=== PATIENT | male | born 1950 ===

== ENCOUNTER 2017-09-07 09:04 | Inpatient (IN) | payer OTHER ==
--- NOTE | 2017-09-07 10:55 | ED PDOC ---
HPI: Male Pain Time Seen by Provider: 09/07/17 09:51 Chief Complaint (Nursing): Male Genitourinary Chief Complaint (Provider): Male genitourinary History Per: Patient History/Exam Limitations: no limitations Onset/Duration Of Symptoms: Days (x4) Current Symptoms Are (Timing): Still Present Associated Symptoms: Urinary Symptoms (dysuria and frequency). denies: Fever, Chills, Back Pain, Other (abdominal pain) Additional Complaint(s): Pierce Cruz is a 67 year old male, with a past medical history diabetes and CAD, who presents to the emergency department complaining of frequent urination and burning sensation onset for x4 days. He denies any testicular pain or swelling, back pain, abdominal pain, fever or chills. No further medical complaints. PMD: Pranay Feng Past Medical History Reviewed: Historical Data, Nursing Documentation, Vital Signs Vital Signs: Last Vital Signs Temp 97.5 F L 09/07/17 09:13 Pulse 95 H 09/07/17 09:13 Resp 21 09/07/17 09:13 BP 142/85 09/07/17 09:13 Pulse Ox 97 09/07/17 09:13 - Medical History PMH: CAD, Diabetes - Surgical History Surgical History: CABG, Coronary Stent (carotid) - Family History Family History: States: Unknown Family Hx - Home Medications Home Medications: Ambulatory Orders Medication Instructions Recorded Aspirin [Ecotrin] 81 mg PO DAILY 09/07/17 Atorvastatin [Lipitor] 40 mg PO HS 09/07/17 Clopidogrel [Plavix] 75 mg PO DAILY 09/07/17 Enalapril Maleate [Vasotec] 20 mg PO DAILY 09/07/17 Ginkgo Biloba [place] Extract [Ginkgo 1 cap PO DAILY 09/07/17 Biloba] Glimepiride [amaRYL] 4 mg PO BID 09/07/17 Metoprolol Tartrate [Lopressor] 25 mg PO Q12 09/07/17 SITagliptin [Januvia] 50 mg PO DAILY 09/07/17 - Allergies Allergies/Adverse Reactions: Allergies Allergy/AdvReac Type Severity Reaction Status Date / Time No Known Allergies Allergy Verified 09/07/17 09:31 Review of Systems ROS Statement: Except As Marked, All Systems Reviewed And Found Negative Constitutional: Negative for: Fever, Chills Gastrointestinal: Negative for: Abdominal Pain Genitourinary Male: Positive for: Dysuria, Frequency. Negative for: Scrotal Pain Musculoskeletal: Negative for: Back Pain Physical Exam - Reviewed Nursing Documentation Reviewed: Yes Vital Signs Reviewed: Yes - Physical Exam Appears: Positive for: Well, Non-toxic, No Acute Distress Head Exam: Positive for: ATRAUMATIC, NORMAL INSPECTION Skin: Positive for: Normal Color, Warm, Dry Eye Exam: Positive for: Normal appearance, EOMI, PERRL Neck: Positive for: Painless ROM, Supple Cardiovascular/Chest: Positive for: Regular Rate, Rhythm. Negative for: Murmur Respiratory: Positive for: Normal Breath Sounds (clear to auscultation). Negative for: Respiratory Distress Gastrointestinal/Abdominal: Positive for: Normal Exam, Soft. Negative for: Tenderness, Guarding, Rebound Back: Positive for: Normal Inspection. Negative for: L CVA Tenderness, R CVA Tenderness, Vertebral Tenderness Extremity: Positive for: Normal ROM (upper and lower extremities). Negative for : Tenderness, Deformity, Swelling Neurologic/Psych: Positive for: Alert, Oriented. Negative for: Motor/Sensory Deficits - Laboratory Results Result Diagrams: 09/08/17 05:30 09/08/17 05:30 - ECG O2 Sat by Pulse Oximetry: 97 (RA) Pulse Ox Interpretation: Normal Medical Decision Making Medical Decision Making: Initial Impression: Dysuria. Differential includes UTI Initial Plan: --Urine dipstick --Glucose, Blood, POC --Reevaluation 11:30 -Ordered blood work, IV fluids and urine because he was hyperglycemic. Scribe Attestation: Documented by Cali Laguerre, acting as a scribe for Peewee Vazquez MD Provider Scribe Attestation: All medical record entries made by the Scribe were at my direction and personally dictated by me. I have reviewed the chart and agree that the record accurately reflects my personal performance of the history, physical exam, medical decision making, and the department course for this patient. I have also personally directed, reviewed, and agree with the discharge instructions and disposition. Disposition - Clinical Impression Clinical Impression: Urinary tract infection, Uncontrolled diabetes mellitus - Patient ED Disposition Is Patient to be Admitted: Yes Discussed With : Remedios Villagomez Doctor Will See Patient In The: ED Counseled Patient/Family Regarding: Studies Performed, Diagnosis - Disposition Disposition Time: 12:40 Condition: FAIR - Pt Status Changed To: Hospital Disposition Of: Inpatient - Admit Certification Admit to Inpatient:: After my assessment, the patient will require hospitalization for at least two midnights. This is because of the severity of symptoms shown, intensity of services needed, and/or the medical risk in this patient being treated as an outpatient. - POA Present On Arrival: Poor Glycemic Control
[2017-09-07] MEDS ORDERED: Sodium Chloride 0.9% 1,000 ML IV STA (11:07)
[2017-09-07 11:37] LABS: BASO # 0.1 K/uL (0.0-0.2); BASO % 0.4 % (0.0-2.0); EOS % 0.2 % (0.0-4.0); HEMOGLOBIN 14.2 g/dL (12.0-18.0); LYMPH # 0.6 K/uL (1.0-4.3); LYMPH % 4.5 % (20.0-40.0); MEAN CELL VOLUME 86.9 fl (80.0-94.0); MEAN CORPUSCULAR HEMOGLOBIN 30.1 pg (27.0-31.0); MEAN CORPUSCULAR HGB CONC 34.6 g/dL (33.0-37.0); MEAN PLATELET VOLUME 8.8 fl (7.2-11.7); MONO # 1.3 K/uL (0.0-0.8); MONO % 9.6 % (0.0-10.0); NEUT % 85.3 % (50.0-75.0); NRBC % 0.1 % (0.0-0.0); PLATELET COUNT 181 K/uL (130-400); RBC 4.73 Mil/uL (4.40-5.90); RED CELL DISTRIBUTION WIDTH 13.4 % (11.5-14.5)
[2017-09-07 11:46] LABS: CALCIUM 9.3 mg/dL (8.4-10.2)
[2017-09-07] MEDS ORDERED: cefTRIAXone (Rocephin) 1 gm Inj ONE (12:35)
[2017-09-07 13:08] LABS: BANDS 1 % (0-2); BASOPHIL 1 % (0-2); LYMPHOCYTE 7 % (20-50); MONOCYTE 12 % (0-10); NEUTROPHIL 79 % (42-75); PLATELET ESTIMATE NORMAL (NORMAL); TOTAL CELLS COUNTED 100; TOXIC GRANULATION PRESENT
[2017-09-07] MEDS ORDERED: Glucagon Recombinant 1 mg Inj IM PRN (13:47)
[2017-09-07] MEDS ORDERED: Dextrose 50% SYRINGE Inj (50 ml) IV PRN (13:47)
--- NOTE | 2017-09-07 14:57 | CP.PCM.HP ---
History of Present Illness - History of Present Illness History of Present Illness: Pierce is 67 yo M patient with PMH of diabetes mellitus, HTN and CAD who presents to the emergency department complaining of frequent urination, burning sensation and incontinence onset for x4 days. Associated with subjective fever and chills. He denies any abdominal or testicular pain or swelling, no back pain , no nausea, vomiting, edema, dribbling, tenesmus, flow stream. No further medical complaints. PMD: Dr Pranay Feng. PMH: DM poor controlled, HTN, CAD s/p CABG Meds: Lipitor 40mg daily, Enalapril 20mg daily, Metoprolol 25 mg daily Plavix 75 mg daily, ASA 81 mg daily, Glimepiride 4 mg daily, Januvia 100 mg daily PSH: CABG x2, carotid stent NKDA. FMH: denies. SH: lives in a house with and 2 sons. Denies alcohol, tobacco or drugs. ED course: VS: T 97.5, P 95, BP 142/85, RR 21, sat 97% RA. PE: ABD: wnl, Resp clear to auscult. Labs: CBC-WBC 14.0, BMP wnl except BUN/Cr 32/1.8 Glu: 366, Mg 1.9, Phos 3.1 Meds: Ceftriaxone 1 g IV once, NS 0.9% IV Present on Admission - Present on Admission Any Indicators Present on Admission: No Review of Systems - Review of Systems All systems: reviewed and no additional remarkable complaints except (as per HPI ) Past Patient History - Past Social History Smoking Status: Never Smoked - CARDIAC Hx Cardiac Disorders: Yes - ENDOCRINE/METABOLIC Hx Endocrine Disorders: Yes Hx Diabetes Mellitus Type 2: Yes - PSYCHIATRIC Hx Substance Use: No - SURGICAL HISTORY Hx Coronary Artery Bypass Graft: Yes Hx Coronary Stent: Yes (carotid) Meds Allergies/Adverse Reactions: Allergies Allergy/AdvReac Type Severity Reaction Status Date / Time No Known Allergies Allergy Verified 09/07/17 09:31 Physical Exam - Constitutional Appears: Well, No Acute Distress - Head Exam Head Exam: NORMAL INSPECTION - Eye Exam Eye Exam: EOMI, PERRL - Respiratory Exam Respiratory Exam: Clear to Auscultation Bilateral, NORMAL BREATHING PATTERN. absent: Rales, Rhonchi, Wheezes - Cardiovascular Exam Cardiovascular Exam: REGULAR RHYTHM, +S1, +S2. absent: Tachycardia - GI/Abdominal Exam GI & Abdominal Exam: Normal Bowel Sounds, Soft. absent: Distended, Tenderness - Extremities Exam Extremities exam: Negative for: calf tenderness - Back Exam Back exam: NORMAL INSPECTION. absent: CVA tenderness (L), CVA tenderness (R) - Neurological Exam Neurological exam: Alert, CN II-XII Intact, Oriented x3 - Psychiatric Exam Psychiatric exam: Normal Mood - Skin Skin Exam: Dry, Intact, Warm Results - Vital Signs Recent Vital Signs: Last Vital Signs Temp 97.5 F L 09/07/17 09:13 Pulse 95 H 09/07/17 09:13 Resp 21 09/07/17 09:13 BP 142/85 09/07/17 09:13 Pulse Ox 97 09/07/17 11:44 - Labs Result Diagrams: 09/07/17 11:21 09/07/17 11:21 Labs: Laboratory Results - last 24 hr 09/07/17 09/07/17 09/07/17 10:21 11:21 11:21 WBC 14.0 H D RBC 4.73 Hgb 14.2 Hct 41.1 MCV 86.9 MCH 30.1 MCHC 34.6 RDW 13.4 Plt Count 181 MPV 8.8 Neut % (Auto) 85.3 H Lymph % (Auto) 4.5 L Moffat % (Auto) 9.6 Eos % (Auto) 0.2 Baso % (Auto) 0.4 Neut # (Auto) 12.0 H Lymph # (Auto) 0.6 L Moffat # (Auto) 1.3 H Eos # (Auto) 0.0 Baso # (Auto) 0.1 Neutrophils % (Manual) 79 H Band Neutrophils % 1 Lymphocytes % (Manual) 7 L Monocytes % (Manual) 12 H Basophils % (Manual) 1 Toxic Granulation Present Platelet Estimate Normal RBC Morphology Normal Sodium 132 Potassium 4.8 Chloride 95 L Carbon Dioxide 22 Anion Gap 20 BUN 32 H Creatinine 1.8 H Est GFR ( Amer) 46 Est GFR (Non-Af Amer) 38 POC Glucose (mg/dL) 366 H Random Glucose 334 H Calcium 9.3 09/07/17 12:25 WBC RBC Hgb Hct MCV MCH MCHC RDW Plt Count MPV Neut % (Auto) Lymph % (Auto) Moffat % (Auto) Eos % (Auto) Baso % (Auto) Neut # (Auto) Lymph # (Auto) Moffat # (Auto) Eos # (Auto) Baso # (Auto) Neutrophils % (Manual) Band Neutrophils % Lymphocytes % (Manual) Monocytes % (Manual) Basophils % (Manual) Toxic Granulation Platelet Estimate RBC Morphology Sodium Potassium Chloride Carbon Dioxide Anion Gap BUN Creatinine Est GFR ( Amer) Est GFR (Non-Af Amer) POC Glucose (mg/dL) 288 H Random Glucose Calcium Assessment & Plan - Assessment and Plan (Free Text) Assessment: 67 yo M Patient with PMH of DM, HTN and CAD-CABG admitted due to UTI. Plan: 1- UTI, complicated -admit to med/surg - associated comorbidities - frequency, urgency and dysuria - IV fluids - Start cipro 500 mg PO BID - f/u cbc, cmp in AM - f/u chlamydia/gonocc cultures, urine cx 2- DM, uncontrolled - Diabetic diet - c/w home meds Januvia - Insulin sliding scale as per protocol - accuchecks - f/u A1C in the AM 3- HTN, controlled - c/w home medications 4- CAD - c/w home medications 5- DVT prophylaxis - Heparin 5000 units SC Q12H
[2017-09-07] MEDS: Insulin Regular 100 units/ml SC SCH ×2 (17:21→22:05)
[2017-09-07] MEDS: Sodium Chloride 0.9% 1,000 ML IV SCH ×2 (17:30→22:16)
[2017-09-08] MEDS: Insulin Regular 100 units/ml SC SCH ×4 (06:55→22:38)
[2017-09-08 07:39] LABS: CALCIUM 8.6 mg/dL (8.4-10.2)
[2017-09-08 07:41] LABS: HEMOGLOBIN 13.4 g/dL (12.0-18.0); MEAN CELL VOLUME 88.9 fl (80.0-94.0); MEAN CORPUSCULAR HEMOGLOBIN 30.2 pg (27.0-31.0); RBC 4.44 Mil/uL (4.40-5.90); RED CELL DISTRIBUTION WIDTH 13.6 % (11.5-14.5); WHITE BLOOD COUNT 12.5 K/uL (4.8-10.8)
[2017-09-08] MEDS ORDERED: Enoxaparin 40 mg Syringe SC SCH (09:00)
[2017-09-08] MEDS: Sodium Chloride 0.9% 1,000 ML IV SCH ×4 (10:00→23:10)
[2017-09-08] MEDS: Ciprofloxacin 400mg/200ml D5W 400 MG/200 ML BAG IVPB SCH ×2 (11:30→22:00)
--- NOTE | 2017-09-08 14:15 | CP.PCM.PN ---
<Jason Ortiz - Last Filed: 09/08/17 15:01> Subjective - Date & Time of Evaluation Date of Evaluation: 09/08/17 Time of Evaluation: 07:15 - Subjective Subjective: Patient seen and evaluated this morning at bedside, reports feeling better, denies nausea, vomiting, chills, no abdominal or chest pain. Febrile during night, tylenol given. Tolertaing well PO. Objective - Vital Signs/Intake and Output Vital Signs (last 24 hours): Temp Pulse Resp BP Pulse Ox 98.3 F 72 19 111/69 93 L 09/08/17 08:01 09/08/17 08:01 09/08/17 08:01 09/08/17 08:01 09/08/17 08:01 - Medications Medications: Current Medications Acetaminophen (Tylenol 325mg Tab) 650 mg PO Q6 PRN PRN Reason: Fever >100.4 F Last Admin: 09/08/17 01:05 Dose: 650 mg Aspirin (Ecotrin) 81 mg PO DAILY [facility] Last Admin: 09/08/17 09:42 Dose: 81 mg Atorvastatin Calcium (Lipitor) 40 mg PO HS [facility] Last Admin: 09/07/17 22:15 Dose: 40 mg Clopidogrel Bisulfate (Plavix) 75 mg PO DAILY [facility] Last Admin: 09/08/17 09:42 Dose: 75 mg Dextrose (Dextrose 50% Inj) 0 ml IV STAT PRN; Protocol PRN Reason: Hypoglycemia Protocol Dextrose (Glutose 15) 0 gm PO ONCE PRN; Protocol PRN Reason: Hypoglycemia Protocol Enalapril Maleate (Vasotec) 20 mg PO DAILY [facility] Last Admin: 09/08/17 09:42 Dose: 20 mg Glucagon (Glucagen Diagnostic Kit) 0 mg IM STAT PRN; Protocol PRN Reason: Hypoglycemia Protocol Heparin Sodium (Porcine) (Heparin) 5,000 units SC Q12 [facility] PRN Reason: Protocol Last Admin: 09/08/17 09:42 Dose: 5,000 units Sodium Chloride (Sodium Chloride 0.9%) 1,000 mls @ 150 mls/hr IV .Q6H40M [facility] Last Admin: 09/08/17 11:34 Dose: 150 mls/hr Ciprofloxacin (Cipro 400mg/200ml Dsw) 400 mg in 200 mls @ 200 mls/hr IVPB Q12 [facility] PRN Reason: Protocol Last Admin: 09/08/17 11:30 Dose: 200 mls/hr Insulin Detemir (Levemir) 5 units SC HS [facility] Insulin Human Regular (Humulin R) 0 units SC ACHS [facility] PRN Reason: Protocol Last Admin: 09/08/17 13:05 Dose: 3 units Metoprolol Tartrate (Lopressor) 25 mg PO Q12 [facility] Last Admin: 09/08/17 09:42 Dose: 25 mg Sitagliptin Phosphate (Januvia) 50 mg PO DAILY [facility] Last Admin: 09/08/17 09:42 Dose: 50 mg - Labs Labs: 09/08/17 05:30 09/08/17 05:30 - Constitutional Appears: No Acute Distress - Head Exam Head Exam: NORMAL INSPECTION - Eye Exam Eye Exam: EOMI, PERRL - Respiratory Exam Respiratory Exam: Clear to Ausculation Bilateral, NORMAL BREATHING PATTERN. absent: Rales, Rhonchi, Wheezes - Cardiovascular Exam Cardiovascular Exam: REGULAR RHYTHM, +S1, +S2. absent: Tachycardia - GI/Abdominal Exam GI & Abdominal Exam: Soft, Normal Bowel Sounds. absent: Distended, Tenderness - Extremities Exam Extremities Exam: absent: Calf Tenderness - Back Exam Back Exam: CVA tenderness (L), CVA tenderness (R) - Neurological Exam Neurological Exam: Awake, CN II-XII Intact, Oriented x3 - Psychiatric Exam Psychiatric exam: Normal Mood Assessment and Plan - Assessment and Plan (Free Text) Assessment: 67 yo M Patient with PMH of DM, HTN and CAD-CABG admitted due to UTI. Plan: 1- UTI, complicated - associated comorbidities - frequency, urgency and dysuria - IV fluids - Start cipro 400 mg IV BID - tylenol PRN for fever. - WBC 12, cmp wnl - f/u chlamydia/gonocc cx - urine cx: gram negative gabriella - f/u postvoid 2- DM, uncontrolled - Diabetic diet - c/w home meds Januvia - Insulin sliding scale as per protocol - start Levemir 5 units HS - accuchecks - f/u A1C in the AM 3- HTN, controlled - c/w home medications 4- CAD - c/w home medications 5- DVT prophylaxis - Heparin 5000 units SC Q12H <Dennise Wu - Last Filed: 09/09/17 09:43> Objective - Vital Signs/Intake and Output Vital Signs (last 24 hours): Temp Pulse Resp BP Pulse Ox 98.3 F 80 19 108/70 97 09/09/17 06:00 09/09/17 08:28 09/09/17 00:31 09/09/17 08:28 09/09/17 00:31 - Medications Medications: Current Medications Acetaminophen (Tylenol 325mg Tab) 650 mg PO Q6 PRN PRN Reason: Fever >100.4 F Last Admin: 09/09/17 02:10 Dose: 650 mg Aspirin (Ecotrin) 81 mg PO DAILY [facility] Last Admin: 09/09/17 08:28 Dose: 81 mg Atorvastatin Calcium (Lipitor) 40 mg PO HS [facility] Last Admin: 09/08/17 22:41 Dose: 40 mg Clopidogrel Bisulfate (Plavix) 75 mg PO DAILY [facility] Last Admin: 09/09/17 08:28 Dose: 75 mg Dextrose (Dextrose 50% Inj) 0 ml IV STAT PRN; Protocol PRN Reason: Hypoglycemia Protocol Dextrose (Glutose 15) 0 gm PO ONCE PRN; Protocol PRN Reason: Hypoglycemia Protocol Enalapril Maleate (Vasotec) 20 mg PO DAILY [facility] Last Admin: 09/09/17 08:28 Dose: 20 mg Glucagon (Glucagen Diagnostic Kit) 0 mg IM STAT PRN; Protocol PRN Reason: Hypoglycemia Protocol Heparin Sodium (Porcine) (Heparin) 5,000 units SC Q12 [facility] PRN Reason: Protocol Last Admin: 09/09/17 08:27 Dose: 5,000 units Sodium Chloride (Sodium Chloride 0.9%) 1,000 mls @ 150 mls/hr IV .Q6H40M [facility] Last Admin: 09/08/17 23:10 Dose: 150 mls/hr Ciprofloxacin (Cipro 400mg/200ml Dsw) 400 mg in 200 mls @ 200 mls/hr IVPB Q12 [facility] PRN Reason: Protocol Last Admin: 09/09/17 08:31 Dose: 200 mls/hr Insulin Detemir (Levemir) 10 units SC [facility] Insulin Human Regular (Humulin R) 0 units SC ACHS [facility] PRN Reason: Protocol Last Admin: 09/09/17 07:02 Dose: 4 units Metoprolol Tartrate (Lopressor) 25 mg PO Q12 [facility] Last Admin: 09/09/17 08:28 Dose: 25 mg Sitagliptin Phosphate (Januvia) 50 mg PO DAILY [facility] Last Admin: 09/09/17 08:28 Dose: 50 mg - Labs Labs: 09/09/17 05:05 09/09/17 05:05 Attending/Attestation - Attestation I have personally seen and examined this patient.: Yes I have fully participated in the care of the patient.: Yes I have reviewed all pertinent clinical information, including history, physical exam and plan: Yes Notes (Text): 09/09/17 09:43 ATTENDING NOTE ATTESTATION. PATIENT SEEN AND EXAMINED. CASE DISCUSSED WITH RESIDENT. AGREE WITH FINDINGS AND PLAN.
[2017-09-08] MEDS ORDERED: Insulin Detemir 100 Units/ml Inj SC SCH (22:00)
[2017-09-09] MEDS: Insulin Regular 100 units/ml SC SCH ×4 (07:02→22:43)
[2017-09-09 07:38] LABS: BASO # 0.1 K/uL (0.0-0.2); BASO % 0.5 % (0.0-2.0); EOS # 0.2 K/uL (0.0-0.7); EOS % 1.8 % (0.0-4.0); HEMOGLOBIN 13.8 g/dL (12.0-18.0); LYMPH % 9.2 % (20.0-40.0); MEAN CELL VOLUME 88.7 fl (80.0-94.0); MEAN CORPUSCULAR HEMOGLOBIN 30.4 pg (27.0-31.0); MEAN CORPUSCULAR HGB CONC 34.3 g/dL (33.0-37.0); MONO # 1.4 K/uL (0.0-0.8); MONO % 12.8 % (0.0-10.0); NEUT # 8.3 K/uL (1.8-7.0); NEUT % 75.7 % (50.0-75.0); RBC 4.55 Mil/uL (4.40-5.90); RED CELL DISTRIBUTION WIDTH 13.7 % (11.5-14.5); WHITE BLOOD COUNT 10.9 K/uL (4.8-10.8)
[2017-09-09 07:48] LABS: ALB/GLOB RATIO 0.8 (1.0-2.1); ALBUMIN 3.3 g/dL (3.5-5.0); CALCIUM 8.8 mg/dL (8.4-10.2)
[2017-09-09] MEDS: Ciprofloxacin 400mg/200ml D5W 400 MG/200 ML BAG IVPB SCH ×2 (08:31→21:21)
[2017-09-09] MEDS ORDERED: Insulin Detemir 100 Units/ml Inj SC SCH (09:05)
[2017-09-09] MEDS: Sodium Chloride 0.9% 1,000 ML IV SCH ×3 (12:59→19:29)
--- NOTE | 2017-09-09 13:34 | CP.PCM.PN ---
<Jason Ortiz - Last Filed: 09/09/17 13:30> Subjective - Date & Time of Evaluation Date of Evaluation: 09/09/17 Time of Evaluation: 08:15 - Subjective Subjective: Patient seen and evaluated this morning at bedside, reports feeling better, denies nausea, vomiting, chills, no abdominal or chest pain. Febrile during night, tylenol given. Tolertaing well PO. No urinary symptoms at this moment. Objective - Vital Signs/Intake and Output Vital Signs (last 24 hours): Temp Pulse Resp BP Pulse Ox 97.5 F L 63 20 117/70 94 L 09/09/17 09:00 09/09/17 09:00 09/09/17 09:00 09/09/17 09:00 09/09/17 09:00 - Medications Medications: Current Medications Acetaminophen (Tylenol 325mg Tab) 650 mg PO Q6 PRN PRN Reason: Fever >100.4 F Last Admin: 09/09/17 02:10 Dose: 650 mg Aspirin (Ecotrin) 81 mg PO DAILY [facility] Last Admin: 09/09/17 08:28 Dose: 81 mg Atorvastatin Calcium (Lipitor) 40 mg PO HS [facility] Last Admin: 09/08/17 22:41 Dose: 40 mg Clopidogrel Bisulfate (Plavix) 75 mg PO DAILY [facility] Last Admin: 09/09/17 08:28 Dose: 75 mg Dextrose (Dextrose 50% Inj) 0 ml IV STAT PRN; Protocol PRN Reason: Hypoglycemia Protocol Dextrose (Glutose 15) 0 gm PO ONCE PRN; Protocol PRN Reason: Hypoglycemia Protocol Enalapril Maleate (Vasotec) 20 mg PO DAILY [facility] Last Admin: 09/09/17 08:28 Dose: 20 mg Glucagon (Glucagen Diagnostic Kit) 0 mg IM STAT PRN; Protocol PRN Reason: Hypoglycemia Protocol Heparin Sodium (Porcine) (Heparin) 5,000 units SC Q12 [facility] PRN Reason: Protocol Last Admin: 09/09/17 08:27 Dose: 5,000 units Sodium Chloride (Sodium Chloride 0.9%) 1,000 mls @ 150 mls/hr IV .Q6H40M [facility] Last Admin: 09/09/17 12:59 Dose: 150 mls/hr Ciprofloxacin (Cipro 400mg/200ml Dsw) 400 mg in 200 mls @ 200 mls/hr IVPB Q12 [facility] PRN Reason: Protocol Last Admin: 09/09/17 08:31 Dose: 200 mls/hr Insulin Detemir (Levemir) 10 units SC HS [facility] Insulin Human Regular (Humulin R) 0 units SC ACHS [facility] PRN Reason: Protocol Last Admin: 09/09/17 13:00 Dose: 3 units Metoprolol Tartrate (Lopressor) 25 mg PO Q12 [facility] Last Admin: 09/09/17 08:28 Dose: 25 mg Sitagliptin Phosphate (Januvia) 50 mg PO DAILY [facility] Last Admin: 09/09/17 08:28 Dose: 50 mg - Labs Labs: 09/09/17 05:05 09/09/17 05:05 - Constitutional Appears: No Acute Distress - Head Exam Head Exam: NORMAL INSPECTION - Respiratory Exam Respiratory Exam: Clear to Ausculation Bilateral, NORMAL BREATHING PATTERN. absent: Wheezes - Cardiovascular Exam Cardiovascular Exam: REGULAR RHYTHM, +S1, +S2. absent: Tachycardia - GI/Abdominal Exam GI & Abdominal Exam: Soft, Normal Bowel Sounds. absent: Distended, Tenderness - Back Exam Back Exam: absent: CVA tenderness (L), CVA tenderness (R) - Neurological Exam Neurological Exam: Awake, Oriented x3 - Skin Skin Exam: Dry, Warm Assessment and Plan - Assessment and Plan (Free Text) Assessment: 67 yo M Patient with PMH of DM, HTN and CAD-CABG admitted due to UTI. Plan: 1- UTI, complicated - associated comorbidities - still febrile during night - IV fluids - c/w cipro 400 mg IV BID - tylenol PRN for fever. - WBC 10.9 from 13.0 yesterday - f/u chlamydia/gonocc cx still pending - urine cx final: klebsiella - Postvoid: 123cc 2- DM, uncontrolled - Diabetic diet - c/w home meds Januvia - Insulin sliding scale as per protocol - POC 320 today - increase Levemir to 10 units HS - accuchecks - f/u A1C in the AM 3- HTN, controlled - c/w home medications 4- CAD - c/w home medications 5- DVT prophylaxis - Heparin 5000 units SC Q12H <Dennise Wu - Last Filed: 09/10/17 08:40> Objective - Vital Signs/Intake and Output Vital Signs (last 24 hours): Temp Pulse Resp BP Pulse Ox 99.5 F 70 20 172/92 H 95 09/10/17 00:49 09/10/17 08:29 09/10/17 00:49 09/10/17 08:29 09/10/17 00:49 - Medications Medications: Current Medications Acetaminophen (Tylenol 325mg Tab) 650 mg PO Q6 PRN PRN Reason: Fever >100.4 F Last Admin: 09/09/17 02:10 Dose: 650 mg Aspirin (Ecotrin) 81 mg PO DAILY [facility] Last Admin: 09/10/17 08:30 Dose: 81 mg Atorvastatin Calcium (Lipitor) 40 mg PO HS [facility] Last Admin: 09/09/17 21:24 Dose: 40 mg Clopidogrel Bisulfate (Plavix) 75 mg PO DAILY [facility] Last Admin: 09/10/17 08:30 Dose: 75 mg Dextrose (Dextrose 50% Inj) 0 ml IV STAT PRN; Protocol PRN Reason: Hypoglycemia Protocol Dextrose (Glutose 15) 0 gm PO ONCE PRN; Protocol PRN Reason: Hypoglycemia Protocol Enalapril Maleate (Vasotec) 20 mg PO DAILY [facility] Last Admin: 09/10/17 08:30 Dose: 20 mg Glucagon (Glucagen Diagnostic Kit) 0 mg IM STAT PRN; Protocol PRN Reason: Hypoglycemia Protocol Heparin Sodium (Porcine) (Heparin) 5,000 units SC Q12 [facility] PRN Reason: Protocol Last Admin: 09/10/17 08:30 Dose: 5,000 units Sodium Chloride (Sodium Chloride 0.9%) 1,000 mls @ 150 mls/hr IV .Q6H40M [facility] Last Admin: 09/10/17 02:00 Dose: 150 mls/hr Ciprofloxacin (Cipro 400mg/200ml Dsw) 400 mg in 200 mls @ 200 mls/hr IVPB Q12 [facility] PRN Reason: Protocol Last Admin: 09/10/17 08:31 Dose: 200 mls/hr Insulin Detemir (Levemir) 10 units SC HS [facility] Last Admin: 09/09/17 22:45 Dose: 10 units Insulin Human Regular (Humulin R) 0 units SC ACHS [facility] PRN Reason: Protocol Last Admin: 09/10/17 07:10 Dose: 3 units Metoprolol Tartrate (Lopressor) 25 mg PO Q12 [facility] Last Admin: 09/10/17 08:29 Dose: 25 mg Sitagliptin Phosphate (Januvia) 50 mg PO DAILY [facility] Last Admin: 09/10/17 08:30 Dose: 50 mg - Labs Labs: 09/10/17 06:20 09/10/17 06:20 Attending/Attestation - Attestation I have personally seen and examined this patient.: Yes I have fully participated in the care of the patient.: Yes I have reviewed all pertinent clinical information, including history, physical exam and plan: Yes Notes (Text): 09/10/17 08:39 ATTENDING NOTE ATTESTATION. PATIENT SEEN AND EXAMINED. CASE DISCUSSED WITH RESIDENT. AGREE WITH FINDINGS AND PLAN
[2017-09-09 21:19] LABS: URINE AMORPHOUS SEDIMENT RARE /ul (<OCC); URINE BACTERIA MANY (<OCC); URINE BILIRUBIN NEGATIVE (NEGATIVE); URINE BLOOD MODERATE (NEGATIVE); URINE CLARITY CLOUDY (Clear); URINE COLOR YELLOW (YELLOW); URINE GLUCOSE (UA) >=500 mg/dL (Normal); URINE LEUKOCYTE ESTERASE LARGE Leu/uL (Negative); URINE PROTEIN NEGATIVE (NEGATIVE); URINE UROBILINOGEN 0.2-1.0 mg/dL (0.2-1.0); WBC CLUMPS FEW /hpf
[2017-09-10] MEDS: Sodium Chloride 0.9% 1,000 ML IV SCH ×5 (02:00→21:36)
[2017-09-10] MEDS: Insulin Regular 100 units/ml SC SCH ×4 (07:10→21:30)
[2017-09-10 07:56] LABS: BASO % 0.4 % (0.0-2.0); EOS # 0.3 K/uL (0.0-0.7); EOS % 2.7 % (0.0-4.0); HEMOGLOBIN 13.6 g/dL (12.0-18.0); LYMPH # 1.2 K/uL (1.0-4.3); LYMPH % 11.6 % (20.0-40.0); MEAN CELL VOLUME 88.1 fl (80.0-94.0); MEAN CORPUSCULAR HEMOGLOBIN 30.7 pg (27.0-31.0); MEAN CORPUSCULAR HGB CONC 34.8 g/dL (33.0-37.0); MEAN PLATELET VOLUME 8.7 fl (7.2-11.7); MONO # 1.1 K/uL (0.0-0.8); MONO % 10.6 % (0.0-10.0); NEUT # 7.8 K/uL (1.8-7.0); NEUT % 74.7 % (50.0-75.0); NRBC % 0.1 % (0.0-0.0); RBC 4.44 Mil/uL (4.40-5.90); RED CELL DISTRIBUTION WIDTH 13.6 % (11.5-14.5); WHITE BLOOD COUNT 10.5 K/uL (4.8-10.8)
[2017-09-10 08:17] LABS: ALB/GLOB RATIO 0.8 (1.0-2.1); ALBUMIN 3.2 g/dL (3.5-5.0); ALT/SGPT 70 U/L (21-72); AST/SGOT 52 U/L (17-59); BLOOD UREA NITROGEN 20 mg/dl (9-20); GFR AFRICAN-AMERICAN > 60; GFR NON-AFRICAN AMERICAN 55
[2017-09-10] MEDS: Ciprofloxacin 400mg/200ml D5W 400 MG/200 ML BAG IVPB SCH (08:31)
[2017-09-10] MEDS: Insulin Detemir 100 Units/ml Inj SC SCH ×2 (11:45→21:29)
--- NOTE | 2017-09-10 13:28 | CP.PCM.PN ---
<Remedios Villagomez - Last Filed: 09/10/17 13:20> Subjective - Date & Time of Evaluation Date of Evaluation: 09/10/17 Time of Evaluation: 13:20 - Subjective Subjective: no overnight events. feeling well. Tolerating PO. Denies n/v, suprapubic pain, CVAT, hematuria. dysuria improved. Objective - Vital Signs/Intake and Output Vital Signs (last 24 hours): Temp Pulse Resp BP Pulse Ox 98.1 F 66 20 172/92 H 95 09/10/17 08:51 09/10/17 08:51 09/10/17 08:51 09/10/17 08:51 09/10/17 08:51 - Medications Medications: Current Medications Acetaminophen (Tylenol 325mg Tab) 650 mg PO Q6 PRN PRN Reason: Fever >100.4 F Last Admin: 09/09/17 02:10 Dose: 650 mg Aspirin (Ecotrin) 81 mg PO DAILY [facility] Last Admin: 09/10/17 08:30 Dose: 81 mg Atorvastatin Calcium (Lipitor) 40 mg PO HS [facility] Last Admin: 09/09/17 21:24 Dose: 40 mg Clopidogrel Bisulfate (Plavix) 75 mg PO DAILY [facility] Last Admin: 09/10/17 08:30 Dose: 75 mg Dextrose (Dextrose 50% Inj) 0 ml IV STAT PRN; Protocol PRN Reason: Hypoglycemia Protocol Dextrose (Glutose 15) 0 gm PO ONCE PRN; Protocol PRN Reason: Hypoglycemia Protocol Enalapril Maleate (Vasotec) 20 mg PO DAILY [facility] Last Admin: 09/10/17 08:30 Dose: 20 mg Glucagon (Glucagen Diagnostic Kit) 0 mg IM STAT PRN; Protocol PRN Reason: Hypoglycemia Protocol Heparin Sodium (Porcine) (Heparin) 5,000 units SC Q12 [facility] PRN Reason: Protocol Last Admin: 09/10/17 08:30 Dose: 5,000 units Sodium Chloride (Sodium Chloride 0.9%) 1,000 mls @ 150 mls/hr IV .Q6H40M [facility] Last Admin: 09/10/17 11:46 Dose: Not Given Ciprofloxacin (Cipro 400mg/200ml Dsw) 400 mg in 200 mls @ 200 mls/hr IVPB Q12 [facility] PRN Reason: Protocol Last Admin: 09/10/17 08:31 Dose: 200 mls/hr Insulin Detemir (Levemir) 12 units SC HS [facility] Last Admin: 09/10/17 11:45 Dose: 12 units Insulin Human Regular (Humulin R) 0 units SC [facility] PRN Reason: Protocol Last Admin: 09/10/17 11:44 Dose: 3 units Metoprolol Tartrate (Lopressor) 25 mg PO Q12 [facility] Last Admin: 09/10/17 08:29 Dose: 25 mg Sitagliptin Phosphate (Januvia) 50 mg PO DAILY [facility] Last Admin: 09/10/17 08:30 Dose: 50 mg - Labs Labs: 09/10/17 06:20 09/10/17 06:20 - Constitutional Appears: Well, No Acute Distress - Head Exam Head Exam: ATRAUMATIC, NORMAL INSPECTION - Eye Exam Eye Exam: Normal appearance - ENT Exam ENT Exam: Mucous Membranes Moist - Neck Exam Neck Exam: Full ROM, Normal Inspection - Respiratory Exam Respiratory Exam: Clear to Ausculation Bilateral, NORMAL BREATHING PATTERN - Cardiovascular Exam Cardiovascular Exam: REGULAR RHYTHM - GI/Abdominal Exam GI & Abdominal Exam: Soft - Extremities Exam Extremities Exam: Normal Inspection - Neurological Exam Neurological Exam: Alert, Oriented x3 - Skin Skin Exam: Dry, Warm Assessment and Plan - Assessment and Plan (Free Text) Assessment: Assessment: 67yo M with PMHx DM, HTN and CAD admitted for UTI. Plan: Cipro converted to PO from IV today with urine cx sensitive to cipro, afebrile thus far, will continue to optimize insulin today/overnight DM, uncontrolled - Diabetic diet - c/w home meds Januvia - Insulin sliding scale as per protocol - Levemir to 12 units HS - accuchecks pyelonephritis - cipro PO starting today - urine cx final: klebsiella -improved 3- HTN, controlled - c/w home medications 4- CAD - c/w home medications 5- DVT prophylaxis - Heparin 5000 units SC Q12H Dispo: d/c Mon with insulin <Dennise Wu - Last Filed: 09/11/17 06:54> Objective - Vital Signs/Intake and Output Vital Signs (last 24 hours): Temp Pulse Resp BP Pulse Ox 99.0 F 64 19 129/78 97 09/11/17 00:00 09/11/17 00:00 09/11/17 00:00 09/11/17 00:00 09/11/17 00:00 - Medications Medications: Current Medications Acetaminophen (Tylenol 325mg Tab) 650 mg PO Q6 PRN PRN Reason: Fever >100.4 F Last Admin: 09/09/17 02:10 Dose: 650 mg Aspirin (Ecotrin) 81 mg PO DAILY [facility] Last Admin: 09/10/17 08:30 Dose: 81 mg Atorvastatin Calcium (Lipitor) 40 mg PO HS [facility] Last Admin: 09/10/17 21:26 Dose: 40 mg Ciprofloxacin (Cipro) 500 mg PO Q12 [facility] PRN Reason: Protocol Last Admin: 09/10/17 21:27 Dose: 500 mg Clopidogrel Bisulfate (Plavix) 75 mg PO DAILY [facility] Last Admin: 09/10/17 08:30 Dose: 75 mg Dextrose (Dextrose 50% Inj) 0 ml IV STAT PRN; Protocol PRN Reason: Hypoglycemia Protocol Dextrose (Glutose 15) 0 gm PO ONCE PRN; Protocol PRN Reason: Hypoglycemia Protocol Enalapril Maleate (Vasotec) 20 mg PO DAILY [facility] Last Admin: 09/10/17 08:30 Dose: 20 mg Glucagon (Glucagen Diagnostic Kit) 0 mg IM STAT PRN; Protocol PRN Reason: Hypoglycemia Protocol Heparin Sodium (Porcine) (Heparin) 5,000 units SC Q12 [facility] PRN Reason: Protocol Last Admin: 09/10/17 21:27 Dose: 5,000 units Sodium Chloride (Sodium Chloride 0.9%) 1,000 mls @ 150 mls/hr IV .Q6H40M [facility] Last Admin: 09/10/17 21:36 Dose: 150 mls/hr Insulin Detemir (Levemir) 12 units SC HS [facility] Last Admin: 09/10/17 21:29 Dose: 12 units Insulin Human Regular (Humulin R) 0 units SC ACHS [facility] PRN Reason: Protocol Last Admin: 09/10/17 21:30 Dose: Not Given Metoprolol Tartrate (Lopressor) 25 mg PO Q12 [facility] Last Admin: 09/10/17 21:26 Dose: 25 mg Sitagliptin Phosphate (Januvia) 50 mg PO DAILY [facility] Last Admin: 09/10/17 08:30 Dose: 50 mg - Labs Labs: 09/10/17 06:20 09/10/17 06:20 Attending/Attestation - Attestation I have personally seen and examined this patient.: Yes I have fully participated in the care of the patient.: Yes I have reviewed all pertinent clinical information, including history, physical exam and plan: Yes Notes (Text): 09/11/17 06:53 ATTENDING NOTE ATTESTATION. PATIENT SEEN AND EXAMINED. CASE DISCUSSED WITH Ana RESENDIZ. UTI IMPROVING. STILL POORLY CONTROLLED DIABETES. ADJUSTMENT OF INSULIN ORDERED. AGREE WITH FINDINGS AND PLAN.
[2017-09-10 15:42] VITALS: O2SAT 97
[2017-09-11 00:50] VITALS: RESP 19
[2017-09-11 07:25] LABS: BLOOD UREA NITROGEN 20 mg/dl (9-20); GFR AFRICAN-AMERICAN > 60; GFR NON-AFRICAN AMERICAN 55
[2017-09-11 07:39] LABS: HEMOGLOBIN 13.1 g/dL (12.0-18.0); MEAN CELL VOLUME 88.3 fl (80.0-94.0); MEAN CORPUSCULAR HEMOGLOBIN 30.4 pg (27.0-31.0); MEAN CORPUSCULAR HGB CONC 34.5 g/dL (33.0-37.0); RBC 4.31 Mil/uL (4.40-5.90); RED CELL DISTRIBUTION WIDTH 13.6 % (11.5-14.5); WHITE BLOOD COUNT 8.4 K/uL (4.8-10.8)
[2017-09-11 08:04] VITALS: BP 131/72; PULSE 60; TEMP 98
[2017-09-11] MEDS: Insulin Regular 100 units/ml SC SCH ×2 (10:01→12:10)
--- NOTE | 2017-09-11 12:03 | CP.PCM.DIS ---
Provider - Provider Date of Admission: 09/07/17 12:40 Attending physician: Stefanie Us MD Time Spent in preparation of Discharge (in minutes): 30 Diagnosis - Discharge Diagnosis (1) Urinary tract infection Status: Acute (2) Uncontrolled diabetes mellitus Status: Chronic Hospital Course - Lab Results Lab Results: Micro Results 09/08/17 01:25 Blood Blood Culture - Preliminary NO GROWTH AFTER 3 DAYS 09/07/17 11:30 Urine Urine Culture - Final Klebsiella Pneumoniae Ssp Pneu Most Recent Lab Values WBC 8.4 K/uL (4.8-10.8) 09/11/17 05:30 RBC 4.31 Mil/uL (4.40-5.90) L 09/11/17 05:30 Hgb 13.1 g/dL (12.0-18.0) 09/11/17 05:30 Hct 38.0 % (35.0-51.0) 09/11/17 05:30 MCV 88.3 fl (80.0-94.0) 09/11/17 05:30 MCH 30.4 pg (27.0-31.0) 09/11/17 05:30 MCHC 34.5 g/dL (33.0-37.0) 09/11/17 05:30 RDW 13.6 % (11.5-14.5) 09/11/17 05:30 Plt Count 226 K/uL (130-400) 09/11/17 05:30 MPV 8.7 fl (7.2-11.7) 09/10/17 06:20 Neut % (Auto) 74.7 % (50.0-75.0) 09/10/17 06:20 Lymph % (Auto) 11.6 % (20.0-40.0) L 09/10/17 06:20 [place] % (Auto) 10.6 % (0.0-10.0) H 09/10/17 06:20 Eos % (Auto) 2.7 % (0.0-4.0) 09/10/17 06:20 Baso % (Auto) 0.4 % (0.0-2.0) 09/10/17 06:20 Neut # (Auto) 7.8 K/uL (1.8-7.0) H 09/10/17 06:20 Lymph # (Auto) 1.2 K/uL (1.0-4.3) 09/10/17 06:20 [place] # (Auto) 1.1 K/uL (0.0-0.8) H 09/10/17 06:20 Eos # (Auto) 0.3 K/uL (0.0-0.7) 09/10/17 06:20 Baso # (Auto) 0.0 K/uL (0.0-0.2) 09/10/17 06:20 Neutrophils % (Manual) 79 % (42-75) H 09/07/17 11:21 Band Neutrophils % 1 % (0-2) 09/07/17 11:21 Lymphocytes % (Manual) 7 % (20-50) L 09/07/17 11:21 Monocytes % (Manual) 12 % (0-10) H 09/07/17 11:21 Basophils % (Manual) 1 % (0-2) 09/07/17 11:21 Toxic Granulation Present 09/07/17 11:21 Platelet Estimate Normal (NORMAL) 09/07/17 11:21 RBC Morphology Normal (NORMAL) 09/07/17 11:21 Sodium 139 mmol/l (132-148) 09/11/17 05:30 Potassium 3.9 MMOL/L (3.6-5.0) 09/11/17 05:30 Chloride 102 mmol/L (98-107) 09/11/17 05:30 Carbon Dioxide 23 mmol/L (22-30) 09/11/17 05:30 Anion Gap 18 (10-20) 09/11/17 05:30 BUN 20 mg/dl (9-20) 09/11/17 05:30 Creatinine 1.3 mg/dl (0.8-1.5) 09/11/17 05:30 Est GFR ( Amer) > 60 09/11/17 05:30 Est GFR (Non-Af Amer) 55 09/11/17 05:30 POC Glucose (mg/dL) 293 mg/dL (65-110) H 09/11/17 10:51 Random Glucose 242 mg/dL (75-110) H 09/11/17 05:30 Calcium 9.0 mg/dL (8.4-10.2) 09/11/17 05:30 Phosphorus 3.1 mg/dl (2.5-4.5) 09/07/17 14:15 Magnesium 1.9 MG/DL (1.6-2.3) 09/07/17 14:15 Total Bilirubin 0.5 mg/dl (0.2-1.3) 09/10/17 06:20 AST 52 U/L (17-59) 09/10/17 06:20 ALT 70 U/L (21-72) 09/10/17 06:20 Alkaline Phosphatase 84 U/L (38-126) 09/10/17 06:20 Total Protein 7.1 G/DL (6.3-8.2) 09/10/17 06:20 Albumin 3.2 g/dL (3.5-5.0) L 09/10/17 06:20 Globulin 3.9 gm/dL (2.2-3.9) 09/10/17 06:20 Albumin/Globulin Ratio 0.8 (1.0-2.1) L 09/10/17 06:20 Procalcitonin 0.82 NG/ML (0.19-0.49) H 09/08/17 07:50 Urine Color Yellow (YELLOW) 09/09/17 20:40 Urine Clarity Cloudy (Clear) 09/09/17 20:40 Urine pH 6.0 (5.0-8.0) 09/09/17 20:40 Ur Specific [place] 1.012 (1.003-1.030) 09/09/17 20:40 Urine Protein Negative mg/dL (NEGATIVE) 09/09/17 20:40 Urine Glucose (UA) >=500 mg/dL (Normal) 09/09/17 20:40 Urine Ketones Negative mg/dL (NEGATIVE) 09/09/17 20:40 Urine Blood Moderate (NEGATIVE) 09/09/17 20:40 Urine Nitrate Negative (NEGATIVE) 09/09/17 20:40 Urine Bilirubin Negative (NEGATIVE) 09/09/17 20:40 Urine Urobilinogen 0.2-1.0 mg/dL (0.2-1.0) 09/09/17 20:40 Ur Leukocyte Esterase Large Leonor/uL (Negative) 09/09/17 20:40 Urine RBC (Auto) 14 /hpf (0-3) H 09/09/17 20:40 Urine WBC Clumps (Auto) Few /hpf (NONE) H 09/09/17 20:40 Urine Microscopic WBC 184 /hpf (0-5) H 09/09/17 20:40 Amorphous Sediment Rare /ul (<OCC) H 09/09/17 20:40 Urine Bacteria Many (<OCC) H 09/09/17 20:40 - Hospital Course Hospital Course: Pierce is 67 yo M patient with PMH of diabetes mellitus, HTN and CAD admitted due to uncontrolled diabetes and UTI. Patient febrile during 2 first nights of admission. He received treatment with Ciprofloxacin 400 mg IV BID and switch to PO day before discharge. Urine cx positive for klebsiella, BCX negative. Also during admission patient had high blood sugar levels, was started on Levemir 5 units HS, increased to 10 and then to 12 units. Patient afebrile and asymptomatic at discharge time, discharged home safely on Cipro 500 mg PO bid to complete 14 days and Levemir 15 units HS. Patient has f/u appt with PMD on at 3:00 pm. Discharge Exam - Head Exam Head Exam: NORMAL INSPECTION - Eye Exam Eye Exam: EOMI, PERRL - Respiratory Exam Respiratory Exam: Clear to PA & Lateral, NORMAL BREATHING PATTERN. absent: Rhonchi, Wheezes - Cardiovascular Exam Cardiovascular Exam: REGULAR RHYTHM, +S1, +S2. absent: Tachycardia, Systolic Murmur - GI/Abdominal Exam GI & Abdominal Exam: Normal Bowel Sounds, Soft. absent: Distended, Tenderness - Back Exam Back exam: absent: CVA tenderness (L), CVA tenderness (R) - Neurological Exam Neurological exam: Alert, CN II-XII Intact, Oriented x3 - Psychiatric Exam Psychiatric exam: Normal Mood - Skin Skin Exam: Dry, Warm Discharge Plan - Discharge Medications Prescriptions: Ciprofloxacin [Cipro] 500 mg PO Q12 10 Days #20 tab Insulin Detemir [Levemir] 15 units SC HS 30 Days #1 vial - Follow Up Plan Condition: FAIR Disposition: HOME/ ROUTINE Instructions: Urinary Tract Infection, Adult (DC), Diabetes and Infections Additional Instructions: F/U appt with PMD Dr Shell on 09/15/17 at 3 pm at [facility]. Continue with Ciprofloxacin 500mg PO BID for 10 days to complete 14 days. Referrals: [facility] [place] [Outside] Pranay Feng MD [Staff Provider] -
[2017-09-11 17:49] LABS: BETA-HYDROXYBUTYRIC ACID 63 mcg/mL
== END 2017-09-11 13:32 | disposition home or self-care (01) | DRG 690 ==
LOC: H.ER 09:04 → H.ERHOLD 12:40 → H.MEDSURG1 15:29
PROVIDERS: ADMIT Family Medicine Geriatric Medicine; ATTEND Family Medicine Geriatric Medicine
DX: N39.0 Urinary tract infection, site not specified (principal); E11.65 Type 2 diabetes mellitus with hyperglycemia; I25.10 Atherosclerotic heart disease of native coronary artery without angina pectoris; Z95.1 Presence of aortocoronary bypass graft; I10 Essential (primary) hypertension; Z95.5 Presence of coronary angioplasty implant and graft; B96.1 Klebsiella pneumoniae [K. pneumoniae] as the cause of diseases classified elsewhere

== ENCOUNTER 2017-10-11 19:25 | Observation (INO) | payer OTHER ==
[2017-10-11] MEDS ORDERED: Sodium Chloride 0.9% 1,000 ML IV STA (21:21)
--- NOTE | 2017-10-11 21:24 | ED PDOC ---
HPI: Male Pain Time Seen by Provider: 10/11/17 21:11 Chief Complaint (Nursing): Male Genitourinary Chief Complaint (Provider): Scrotal pain right History Per: Patient History/Exam Limitations: no limitations Onset/Duration Of Symptoms: Days Current Symptoms Are (Timing): Still Present Additional Complaint(s): 4 days of right scrotal pain. No dysuria, injury. No abd pain. No nausea, vomit, diarrhea. No weakness. No numbness, tingles. Past Medical History Reviewed: Nursing Documentation, Vital Signs Vital Signs: Last Vital Signs Temp 98.4 F 10/11/17 20:33 Pulse 118 H 10/11/17 20:33 Resp 18 10/11/17 20:33 BP 120/76 10/11/17 20:33 Pulse Ox 97 10/11/17 20:33 - Medical History PMH: CAD, Diabetes, HTN - Surgical History Surgical History: CABG, Coronary Stent (carotid) - Family History Family History: States: Unknown Family Hx - Social History Current smoker - smoking cessation education provided: No Alcohol: None Drugs: Denies - Home Medications Home Medications: Ambulatory Orders Medication Instructions Recorded Aspirin [Ecotrin] 81 mg PO DAILY 09/07/17 Atorvastatin [Lipitor] 40 mg PO HS 09/07/17 Clopidogrel [Plavix] 75 mg PO DAILY 09/07/17 Enalapril Maleate [Vasotec] 20 mg PO DAILY 09/07/17 Ginkgo Biloba [place] Extract [Ginkgo 1 cap PO DAILY 09/07/17 Biloba] Glimepiride [amaRYL] 4 mg PO BID 09/07/17 Metoprolol Tartrate [Lopressor] 25 mg PO Q12 09/07/17 SITagliptin [Januvia] 50 mg PO DAILY 09/07/17 Ciprofloxacin [Cipro] 500 mg PO Q12 10 Days #20 tab 09/11/17 Insulin Detemir [Levemir] 15 units SC HS 30 Days #1 vial 09/11/17 - Allergies Allergies/Adverse Reactions: Allergies Allergy/AdvReac Type Severity Reaction Status Date / Time No Known Allergies Allergy Verified 10/11/17 20:32 Review of Systems ROS Statement: Except As Marked, All Systems Reviewed And Found Negative Genitourinary Male: Positive for: Scrotal Pain, Rash Physical Exam - Reviewed Nursing Documentation Reviewed: Yes Vital Signs Reviewed: Yes - Physical Exam Appears: Positive for: Non-toxic, No Acute Distress Head Exam: Positive for: ATRAUMATIC, NORMAL INSPECTION, NORMOCEPHALIC Skin: Positive for: Normal Color, Warm, DRY Eye Exam: Positive for: EOMI, Normal appearance, PERRL ENT: Positive for: Normal ENT Inspection Neck: Positive for: Normal, Painless ROM Cardiovascular/Chest: Positive for: Regular Rate, Rhythm Respiratory: Positive for: CNT, Normal Breath Sounds Gastrointestinal/Abdominal: Positive for: Normal Exam, Soft. Negative for: Tenderness Male Genital Exam: Positive for: scrotum tenderness (R) (sac with induration; erythema and tenderness; no fluctuance or dc.), testicular tenderness (R), other (no perineal erythema). Negative for: scrotum tenderness (L), testicular tenderness (L) Back: Positive for: Normal Inspection. Negative for: L CVA Tenderness, R CVA Tenderness Extremity: Positive for: Normal ROM. Negative for: Tenderness Neurologic/Psych: Positive for: Alert, Oriented - ECG O2 Sat by Pulse Oximetry: 97 Pulse Ox Interpretation: Normal - Progress ED Course And Treament: MPRESSION: 1. Findings suggestive of RIGHT epididymitis. Clinical correlation and follow up are recommended. 2. Heterogeneous LEFT testis, nonspecific. Clinical correlation is needed. 3. Incidental/non-acute findings are described above. 2325: Stable. AAOx3. 2350: Spoke with Dr. Barrera. Agrees with current treatment and plan. Dr. Espinoza to fu on labs. Medical Decision Making Medical Decision Makin US TESTES DUPLEX FINDINGS: Right testicle: Normal echogenicity. No discrete mass. No torsion. Left testicle: Heterogeneous echotexture. No discrete mass. No torsion. Epididymides: Enlarged, heterogeneous, mildly hypervascular RIGHT epididymis. Small RIGHT epididymal cyst. Scrotum: Small RIGHT hydrocele. LEFT varicocele. IMPRESSION: 1. Findings suggestive of RIGHT epididymitis. Clinical correlation and follow up are recommended. 2. Heterogeneous LEFT testis, nonspecific. Clinical correlation is needed. 3. Incidental/non-acute findings are described above. Scribe Attestation: Documented by Debbie Wallace acting as a scribe for Trav Sorensen MD. Scribe Attestation: All medical record entries made by the Scribe were at my direction and personally dictated by me. I have reviewed the chart and agree that the record accurately reflects my personal performance of the history, physical exam, medical decision making, and the department course for this patient. I have also personally directed, reviewed, and agree with the discharge instructions and disposition. Disposition - Clinical Impression Clinical Impression: Acute epididymitis, Cellulitis of scrotum - Patient ED Disposition Is Patient to be Admitted: Transfer of Care - Disposition Disposition Time: 00:09 Condition: FAIR Patient Signed Over To: Levi Espinoza
[2017-10-11 22:57] LABS: VENOUS BLOOD GAS BASE EXCESS -0.8 mmol/L (0.0-2.0); VENOUS BLOOD GAS PCO2 37 mmHg (40-60); VENOUS BLOOD GAS PO2 47 mm/Hg (30-55); VENOUS BLOOD PH 7.41 (7.32-7.43)
--- NOTE | 2017-10-11 23:16 | US ---
EXAM: US Scrotum CLINICAL HISTORY: 67 years old, male; Pain and signs and symptoms; Swelling, testicles or scrotum; Scrotum pain; Additional info: Testicular pain TECHNIQUE: Real-time ultrasound of the scrotum with color Doppler and image documentation. COMPARISON: No relevant prior studies available. FINDINGS: Right testicle: Normal echogenicity. No discrete mass. No torsion. Left testicle: Heterogeneous echotexture. No discrete mass. No torsion. Epididymides: Enlarged, heterogeneous, mildly hypervascular RIGHT epididymis. Small RIGHT epididymal cyst. Scrotum: Small RIGHT hydrocele. LEFT varicocele. IMPRESSION: 1. Findings suggestive of RIGHT epididymitis. Clinical correlation and follow up are recommended. 2. Heterogeneous LEFT testis, nonspecific. Clinical correlation is needed. 3. Incidental/non-acute findings are described above.
[2017-10-12] MEDS ORDERED: Clindamycin in NS 300 MG/50 ML BAG IVPB STA (00:03)
[2017-10-12 00:04] LABS: BASO % 0.3 % (0.0-2.0); EOS # 0.3 K/uL (0.0-0.7); EOS % 1.6 % (0.0-4.0); HEMOGLOBIN 13.6 g/dL (12.0-18.0); LYMPH # 1.6 K/uL (1.0-4.3); LYMPH % 9.6 % (20.0-40.0); MEAN CELL VOLUME 87.2 fl (80.0-94.0); MEAN CORPUSCULAR HGB CONC 34.4 g/dL (33.0-37.0); MONO # 1.2 K/uL (0.0-0.8); MONO % 7.2 % (0.0-10.0); NEUT # 13.2 K/uL (1.8-7.0); NEUT % 81.3 % (50.0-75.0); PLATELET COUNT 204 K/uL (130-400); RBC 4.54 Mil/uL (4.40-5.90); RED CELL DISTRIBUTION WIDTH 13.8 % (11.5-14.5); WHITE BLOOD COUNT 16.2 K/uL (4.8-10.8)
[2017-10-12 00:09] LABS: SQUAMOUS EPITHIAL 1 /hpf (0-5); URINE BILIRUBIN NEGATIVE (NEGATIVE); URINE BLOOD MODERATE (NEGATIVE); URINE CLARITY SLIGHTY-CLOUDY (Clear); URINE COLOR YELLOW (YELLOW); URINE GLUCOSE (UA) >=500 mg/dL (Normal); URINE LEUKOCYTE ESTERASE NEG Leu/uL (Negative); URINE PROTEIN 30 mg/dL (NEGATIVE); URINE UROBILINOGEN 0.2-1.0 mg/dL (0.2-1.0)
[2017-10-12 00:11] LABS: INR 1.3 (0.9-1.2); PROTHROMBIN TIME 14.4 Seconds (9.8-13.1)
[2017-10-12 00:12] LABS: PARTIAL THROMBOPLASTIN TIME 25.7 Seconds (25.6-37.1)
--- NOTE | 2017-10-12 00:15 | ED PDOC ---
- Laboratory Results Result Diagrams: 10/11/17 23:53 10/11/17 23:53 - ECG O2 Sat by Pulse Oximetry: 97 Medical Decision Making Medical Decision Makin Patient signed out to this provider from Dr. Sorensen pending blood work. 0003 * Clindamycin IVPB 0200 Patient with leukocytosis, possible cellulitis, will admit for IV abx, case discussed with FP resident. Scribe Attestation: Documented by Debbie Wallace acting as a scribe for Levi Espinoza MD. Scribe Attestation: All medical record entries made by the Scribe were at my direction and personally dictated by me. I have reviewed the chart and agree that the record accurately reflects my personal performance of the history, physical exam, medical decision making, and the department course for this patient. I have also personally directed, reviewed, and agree with the discharge instructions and disposition. Disposition - Clinical Impression Clinical Impression: Acute epididymitis, Cellulitis of scrotum - POA Present On Arrival: None - Disposition Disposition: Hospitalized as Observation Patient Disposition Time: 02:00 Condition: FAIR
[2017-10-12 01:48] LABS: EOSINOPHIL 3 % (0-7); LYMPHOCYTE 10 % (20-50); MONOCYTE 8 % (0-10); NEUTROPHIL 78 % (42-75); REACTIVE LYMPHOCYTES 1 % (0-0); TOTAL CELLS COUNTED 100
[2017-10-12 01:49] LABS: ANISOCYTOSIS SLIGHT; PLATELET ESTIMATE NORMAL (NORMAL)
[2017-10-12 02:52] LABS: ALBUMIN 3.7 g/dL (3.5-5.0); CALCIUM 9.1 mg/dL (8.4-10.2)
[2017-10-12] MEDS ORDERED: Dextrose 50% SYRINGE Inj (50 ml) IV PRN (04:28)
[2017-10-12] MEDS ORDERED: Glucagon Recombinant 1 mg Inj IM PRN (04:28)
--- NOTE | 2017-10-12 04:43 | CP.PCM.HP ---
History of Present Illness - History of Present Illness History of Present Illness: Hx taken from patient and medical records Full code PMD: NHC 67 y/o M with Hx of uncontrolled IDDM and CKD presented to ED with c/o testicular pain, redness and swelling for the past 4 days. As per patient pain has improved the last 2 days but swelling and redness are same or worse. He hasnt check temp at home but was told it was elevated at the clinic 2 days ago. Denies dysuria, urethral discharge, change in sexual behaviour pattern, diarrhea , urinary retention, CP, SOB, palpitations, headaches. Patient uses insulin levemir 15 units HS and Januvia/Glimepiride at home for DM control. He doesnt check BS levels at home. Lives with and children. Denies hx of trauma to testicles or scrotal lesions. Patient was admitted to hosp, short stay, 1 month ago due to UTI and treated with Cipro. ED course Testicular US: Suspected R/Epididymitis WBC: 16.2 left shift BUN/Creat 38/2.0 Na 131 BS: 300s VS WNL IV NS 1 L Clindamycin 600mg IV once Levaquin 500mg IV daily Toradol 15mg PMH: DM poor controlled, HTN, CKD, CAD s/p CABG SxHx: CABG x2, carotid stent NKDA. FMH: denies. SH: lives in a house with and 2 sons. Denies alcohol, tobacco or drugs. Present on Admission - Present on Admission Any Indicators Present on Admission: Yes History of Uncontrolled Diabetes: Yes Review of Systems - Review of Systems All systems: reviewed and no additional remarkable complaints except (Those noted on HPI) Past Patient History - Past Medical History & Family History Past Medical History?: Yes - Past Social History Alcohol: None Drugs: Denies - CARDIAC Hx Cardiac Disorders: Yes - ENDOCRINE/METABOLIC Hx Endocrine Disorders: Yes - MUSCULOSKELETAL/RHEUMATOLOGICAL Hx Falls: No - PSYCHIATRIC Hx Substance Use: No - SURGICAL HISTORY Hx Coronary Artery Bypass Graft: Yes Hx Coronary Stent: Yes (carotid) - ANESTHESIA Hx Anesthesia: Yes Hx Anesthesia Reactions: No Meds Allergies/Adverse Reactions: Allergies Allergy/AdvReac Type Severity Reaction Status Date / Time No Known Allergies Allergy Verified 10/11/17 20:32 Physical Exam - Constitutional Appears: Non-toxic, No Acute Distress - Head Exam Head Exam: NORMAL INSPECTION - Eye Exam Eye Exam: EOMI, PERRL - ENT Exam ENT Exam: Mucous Membranes Moist - Respiratory Exam Respiratory Exam: Clear to Auscultation Bilateral, NORMAL BREATHING PATTERN. absent: Rales, Rhonchi, Wheezes, Stridor - Cardiovascular Exam Cardiovascular Exam: REGULAR RHYTHM, +S1, +S2. absent: Gallop - GI/Abdominal Exam GI & Abdominal Exam: Normal Bowel Sounds, Soft. absent: Distended, Firm, Guarding, Rebound, Tenderness - Exam Exam: Scrotal Swelling, Testicular Tenderness. absent: NORMAL INSPECTION (R/ testicle and scrotal swelling and mild tenderness. Scrotal redness extends slightly to L/side. NO penile DC. There are few papular, small, nonconfluent lesions on the ventral aspect of the glans. NO discharge from lesions), Uretheral Discharge Results - Vital Signs Recent Vital Signs: Last Vital Signs Temp 99.5 F 10/12/17 00:22 Pulse 82 10/12/17 04:35 Resp 20 10/12/17 04:35 BP 138/66 10/12/17 04:35 Pulse Ox 95 10/12/17 04:04 - Labs Result Diagrams: 10/11/17 23:53 10/11/17 23:53 Labs: Laboratory Results - last 24 hr 10/11/17 10/11/17 10/11/17 22:50 23:53 23:53 WBC 16.2 H D RBC 4.54 Hgb 13.6 Hct 39.6 MCV 87.2 MCH 30.0 MCHC 34.4 RDW 13.8 Plt Count 204 MPV 10.0 Neut % (Auto) 81.3 H Lymph % (Auto) 9.6 L Carbon % (Auto) 7.2 Eos % (Auto) 1.6 Baso % (Auto) 0.3 Neut # (Auto) 13.2 H Lymph # (Auto) 1.6 Carbon # (Auto) 1.2 H Eos # (Auto) 0.3 Baso # (Auto) 0.0 Neutrophils % (Manual) 78 H Lymphocytes % (Manual) 10 L Reactive Lymphs % 1 H Monocytes % (Manual) 8 Eosinophils % (Manual) 3 Platelet Estimate Normal Anisocytosis (manual) Slight PT INR APTT pO2 47 VBG pH 7.41 VBG pCO2 37 L VBG HCO3 23.9 VBG Total CO2 24.6 VBG O2 Sat (Calc) 87.7 H VBG Base Excess -0.8 L VBG Potassium 4.6 Sodium 126.0 L 131 L Glucose 412 H* Lactate 1.6 FiO2 21.0 Crit Value Called To Jennifer valentino Crit Value Called By 23 Crit Value Read Back Y Blood Gas Notified Time 2255 Potassium 4.8 Chloride 94 L Carbon Dioxide 25 Anion Gap 17 BUN 38 H Creatinine 2.0 H Est GFR ( Amer) 41 Est GFR (Non-Af Amer) 34 Random Glucose 363 H Calcium 9.1 Total Bilirubin 0.7 AST 24 ALT 23 Alkaline Phosphatase 79 Total Protein 7.5 Albumin 3.7 Globulin 3.8 Albumin/Globulin Ratio 1.0 Venous Blood Potassium 4.6 Urine Color Urine Clarity Urine pH Ur Specific [place] Urine Protein Urine Glucose (UA) Urine Ketones Urine Blood Urine Nitrate Urine Bilirubin Urine Urobilinogen Ur Leukocyte Esterase Urine RBC (Auto) Urine Microscopic WBC Ur Squamous Epith Cells Hyaline Casts 10/11/17 10/11/17 23:53 23:53 WBC RBC Hgb Hct MCV MCH MCHC RDW Plt Count MPV Neut % (Auto) Lymph % (Auto) Carbon % (Auto) Eos % (Auto) Baso % (Auto) Neut # (Auto) Lymph # (Auto) Carbon # (Auto) Eos # (Auto) Baso # (Auto) Neutrophils % (Manual) Lymphocytes % (Manual) Reactive Lymphs % Monocytes % (Manual) Eosinophils % (Manual) Platelet Estimate Anisocytosis (manual) PT 14.4 H INR 1.3 H APTT 25.7 pO2 VBG pH VBG pCO2 VBG HCO3 VBG Total CO2 VBG O2 Sat (Calc) VBG Base Excess VBG Potassium Sodium Glucose Lactate FiO2 Crit Value Called To Crit Value Called By Crit Value Read Back Blood Gas Notified Time Potassium Chloride Carbon Dioxide Anion Gap BUN Creatinine Est GFR ( Amer) Est GFR (Non-Af Amer) Random Glucose Calcium Total Bilirubin AST ALT Alkaline Phosphatase Total Protein Albumin Globulin Albumin/Globulin Ratio Venous Blood Potassium Urine Color Yellow Urine Clarity Slighty-cloudy Urine pH 5.0 Ur Specific [place] 1.023 Urine Protein 30 Urine Glucose (UA) >=500 Urine Ketones 20 Urine Blood Moderate Urine Nitrate Negative Urine Bilirubin Negative Urine Urobilinogen 0.2-1.0 Ur Leukocyte Esterase Neg Urine RBC (Auto) 132 H Urine Microscopic WBC 6 H Ur Squamous Epith Cells 1 Hyaline Casts 3-5 H Assessment & Plan - Assessment and Plan (Free Text) Assessment: 67 y/o M with Hx of DM, CKD admitted for L/epididymitis and uncontrolled DM L/epididymitis Scrotal ands testicular pain, swelling and redness for 4 days Hx of recent episode of fever Testicles US finding: Suspected epididymitis Leukocytosis UA + for RBC and WBC F/U UCx Started on Levaquin 500mg IVdaily S/P 1 dose of IV [place] HIV, RPR, HSV, Mumps and GC/Chl ordered Urology consulted. F/U recs Uncontrolled IDDM Last HgbA1c 11 on 08/2017 Start Levemir 20 units HS and ISS medium dose C/W Januvia 50 mg daily(Adjusted renal dose) Monitor Hold Glimepiride for now Acute on CKD Elevated BUN/Creat from baseline Poss due to infection/dehydration F/U repeat BMP after IV fluids HTN Stable C/w home meds DVT prophylaxis Lovenox 30 mg daily
[2017-10-12] MEDS ORDERED: Sodium Chloride 0.9% 1,000 ML IV SCH (04:45)
[2017-10-12] MEDS: Insulin Regular 100 units/ml SC SCH ×2 (06:05→13:35)
[2017-10-12 07:25] LABS: ALBUMIN 3.8 g/dL (3.5-5.0); CALCIUM 9.1 mg/dL (8.4-10.2)
[2017-10-12] MEDS ORDERED: levoFLOXacin 500 mg in D5W 500 MG/100 ML BAG IVPB SCH (09:00)
--- NOTE | 2017-10-12 09:40 | CP.PCM.PN ---
Subjective - Date & Time of Evaluation Date of Evaluation: 10/12/17 Time of Evaluation: 09:31 - Subjective Subjective: 67 year old hisp male who was treated as a outpatient wit [facility] since , with no improvment pt was admitted with cellulitis of scrotum and us ecidence . pt has been placed on antibiotics, blood and urine c&s pending. Pe reveals er ythema of scrotum, tenderness in Epidimitis. A Epidimitis resistant to opd Rx Suggest Continue present antibiotics await C& adjust antibiotics as indicated. If pt fails to improve consider ID consult [place] Objective - Vital Signs/Intake and Output Vital Signs (last 24 hours): Temp Pulse Resp BP Pulse Ox 98.4 F 76 20 125/73 96 10/12/17 08:00 10/12/17 08:10 10/12/17 08:00 10/12/17 08:10 10/12/17 08:00 - Medications Medications: Current Medications Acetaminophen (Tylenol 325mg Tab) 650 mg PO Q6 PRN PRN Reason: Fever >100.4 F Aspirin (Ecotrin) 81 mg PO DAILY [facility] Last Admin: 10/12/17 08:10 Dose: 81 mg Atorvastatin Calcium (Lipitor) 40 mg PO HS [facility] Clopidogrel Bisulfate (Plavix) 75 mg PO DAILY [facility] Last Admin: 10/12/17 08:10 Dose: 75 mg Dextrose (Dextrose 50% Inj) 0 ml IV STAT PRN; Protocol PRN Reason: Hypoglycemia Protocol Dextrose (Glutose 15) 0 gm PO ONCE PRN; Protocol PRN Reason: Hypoglycemia Protocol Enalapril Maleate (Vasotec) 20 mg PO DAILY [facility] Last Admin: 10/12/17 08:09 Dose: 20 mg Enoxaparin Sodium (Lovenox) 30 mg SC DAILY [facility] PRN Reason: Protocol Glucagon (Glucagen Diagnostic Kit) 0 mg IM STAT PRN; Protocol PRN Reason: Hypoglycemia Protocol Levofloxacin/Dextrose (Levaquin 500mg) 500 mg in 100 mls @ 100 mls/hr IVPB DAILY [facility] PRN Reason: Protocol Last Admin: 10/12/17 08:11 Dose: 100 mls/hr Sodium Chloride (Sodium Chloride 0.9%) 1,000 mls @ 100 mls/hr IV .Q10H [facility] Stop: 10/12/17 14:44 Last Admin: 10/12/17 05:59 Dose: 100 mls/hr Ibuprofen (Motrin Tab) 400 mg PO Q6H PRN PRN Reason: Pain, moderate (4-7) Insulin Detemir (Levemir) 20 units SC [facility] Insulin Human Regular (Humulin R) 0 units SC ACCU-CHECK TOMMY PRN Reason: Protocol Last Admin: 10/12/17 06:05 Dose: 4 units Metoprolol Tartrate (Lopressor) 25 mg PO Q12 [facility] Last Admin: 10/12/17 08:10 Dose: 25 mg Sitagliptin Phosphate (Januvia) 50 mg PO DAILY [facility] Last Admin: 10/12/17 08:10 Dose: 50 mg - Labs Labs: 10/11/17 23:53 10/12/17 05:55 PT 14.4 Seconds (9.8-13.1) H 10/11/17 23:53 INR 1.3 (0.9-1.2) H 10/11/17 23:53 APTT 25.7 Seconds (25.6-37.1) 10/11/17 23:53
--- NOTE | 2017-10-12 15:55 | CP.PCM.DIS ---
Provider - Provider Date of Admission: 10/12/17 03:14 Attending physician: Stefanie Us MD Primary care physician: Dr Clinton at [facility]. Consults: Urology: Dr Barrera. Time Spent in preparation of Discharge (in minutes): 30 Diagnosis - Discharge Diagnosis (1) Acute epididymitis Status: Acute Comment: -Pt stable, is discharge with PO Levofloxacin 500mg daily for 10 days. Hospital Course - Lab Results Lab Results: Most Recent Lab Values WBC 16.2 K/uL (4.8-10.8) H D 10/11/17 23:53 RBC 4.54 Mil/uL (4.40-5.90) 10/11/17 23:53 Hgb 13.6 g/dL (12.0-18.0) 10/11/17 23:53 Hct 39.6 % (35.0-51.0) 10/11/17 23:53 MCV 87.2 fl (80.0-94.0) 10/11/17 23:53 MCH 30.0 pg (27.0-31.0) 10/11/17 23:53 MCHC 34.4 g/dL (33.0-37.0) 10/11/17 23:53 RDW 13.8 % (11.5-14.5) 10/11/17 23:53 Plt Count 204 K/uL (130-400) 10/11/17 23:53 MPV 10.0 fl (7.2-11.7) 10/11/17 23:53 Neut % (Auto) 81.3 % (50.0-75.0) H 10/11/17 23:53 Lymph % (Auto) 9.6 % (20.0-40.0) L 10/11/17 23:53 [place] % (Auto) 7.2 % (0.0-10.0) 10/11/17 23:53 Eos % (Auto) 1.6 % (0.0-4.0) 10/11/17 23:53 Baso % (Auto) 0.3 % (0.0-2.0) 10/11/17 23:53 Neut # (Auto) 13.2 K/uL (1.8-7.0) H 10/11/17 23:53 Lymph # (Auto) 1.6 K/uL (1.0-4.3) 10/11/17 23:53 [place] # (Auto) 1.2 K/uL (0.0-0.8) H 10/11/17 23:53 Eos # (Auto) 0.3 K/uL (0.0-0.7) 10/11/17 23:53 Baso # (Auto) 0.0 K/uL (0.0-0.2) 10/11/17 23:53 Neutrophils % (Manual) 78 % (42-75) H 10/11/17 23:53 Lymphocytes % (Manual) 10 % (20-50) L 10/11/17 23:53 Reactive Lymphs % 1 % (0-0) H 10/11/17 23:53 Monocytes % (Manual) 8 % (0-10) 10/11/17 23:53 Eosinophils % (Manual) 3 % (0-7) 10/11/17 23:53 Platelet Estimate Normal (NORMAL) 10/11/17 23:53 Anisocytosis (manual) Slight 10/11/17 23:53 PT 14.4 Seconds (9.8-13.1) H 10/11/17 23:53 INR 1.3 (0.9-1.2) H 10/11/17 23:53 APTT 25.7 Seconds (25.6-37.1) 10/11/17 23:53 pO2 47 mm/Hg (30-55) 10/11/17 22:50 VBG pH 7.41 (7.32-7.43) 10/11/17 22:50 VBG pCO2 37 mmHg (40-60) L 10/11/17 22:50 VBG HCO3 23.9 mmol/L 10/11/17 22:50 VBG Total CO2 24.6 mmol/L (22-28) 10/11/17 22:50 VBG O2 Sat (Calc) 87.7 % (40-65) H 10/11/17 22:50 VBG Base Excess -0.8 mmol/L (0.0-2.0) L 10/11/17 22:50 VBG Potassium 4.6 mmol/L (3.6-5.2) 10/11/17 22:50 Sodium 126.0 mmol/L (132-148) L 10/11/17 22:50 Glucose 412 mg/dL (75-110) H* 10/11/17 22:50 Lactate 1.6 mmol/L (0.7-2.1) 10/11/17 22:50 FiO2 21.0 % 10/11/17 22:50 Crit Value Called To Jennifer valentino 10/11/17 22:50 Crit Value Called By 23 10/11/17 22:50 Crit Value Read Back Y 10/11/17 22:50 Blood Gas Notified Time 95410/11/17 22:50 Sodium 134 mmol/l (132-148) 10/12/17 05:55 Potassium 4.3 MMOL/L (3.6-5.0) 10/12/17 05:55 Chloride 94 mmol/L (98-107) L 10/12/17 05:55 Carbon Dioxide 23 mmol/L (22-30) 10/12/17 05:55 Anion Gap 21 (10-20) H 10/12/17 05:55 BUN 38 mg/dl (9-20) H 10/12/17 05:55 Creatinine 1.9 mg/dl (0.8-1.5) H 10/12/17 05:55 Est GFR ( Amer) 43 10/12/17 05:55 Est GFR (Non-Af Amer) 36 10/12/17 05:55 POC Glucose (mg/dL) 296 mg/dL (65-110) H 10/12/17 05:32 Random Glucose 335 mg/dL (75-110) H 10/12/17 05:55 Calcium 9.1 mg/dL (8.4-10.2) 10/12/17 05:55 Total Bilirubin 0.8 mg/dl (0.2-1.3) 10/12/17 05:55 AST 22 U/L (17-59) 10/12/17 05:55 ALT 27 U/L (21-72) 10/12/17 05:55 Alkaline Phosphatase 80 U/L (38-126) 10/12/17 05:55 Total Protein 7.6 G/DL (6.3-8.2) 10/12/17 05:55 Albumin 3.8 g/dL (3.5-5.0) 10/12/17 05:55 Globulin 3.8 gm/dL (2.2-3.9) 10/12/17 05:55 Albumin/Globulin Ratio 1.0 (1.0-2.1) 10/12/17 05:55 Venous Blood Potassium 4.6 mmol/L (3.6-5.2) 10/11/17 22:50 Urine Color Yellow (YELLOW) 10/11/17 23:53 Urine Clarity Slighty-cloudy (Clear) 10/11/17 23:53 Urine pH 5.0 (5.0-8.0) 10/11/17 23:53 Ur Specific [place] 1.023 (1.003-1.030) 10/11/17 23:53 Urine Protein 30 mg/dL (NEGATIVE) 10/11/17 23:53 Urine Glucose (UA) >=500 mg/dL (Normal) 10/11/17 23:53 Urine Ketones 20 mg/dL (NEGATIVE) 10/11/17 23:53 Urine Blood Moderate (NEGATIVE) 10/11/17 23:53 Urine Nitrate Negative (NEGATIVE) 10/11/17 23:53 Urine Bilirubin Negative (NEGATIVE) 10/11/17 23:53 Urine Urobilinogen 0.2-1.0 mg/dL (0.2-1.0) 10/11/17 23:53 Ur Leukocyte Esterase Neg [place]/uL (Negative) 10/11/17 23:53 Urine RBC (Auto) 132 /hpf (0-3) H 10/11/17 23:53 Urine Microscopic WBC 6 /hpf (0-5) H 10/11/17 23:53 Ur Squamous Epith Cells 1 /hpf (0-5) 10/11/17 23:53 Hyaline Casts 3-5 /hpf (0-2) H 10/11/17 23:53 - Hospital Course Hospital Course: 67 y/o M was admitted for evaluation and management of acute epididymitis that failed to outpatient treatment. Pt was administered IV Levofloxacin and IV Clindamycin. Pt reported remarkable improvement of R testicular pain, swelling and redness. Urology was consulted and recommended PO antibiotic therapy upon improvement and discharge. Levofloxacin 500mng PO x 10 days prescribed. No change in his chronic medications. - Date & Time of H&P Date of H&P: 10/12/17 Time of H&P: 04:43 Discharge Exam - Head Exam Head Exam: NORMAL INSPECTION - Eye Exam Eye Exam: EOMI - ENT Exam ENT Exam: Mucous Membranes Moist - Respiratory Exam Respiratory Exam: Clear to PA & Lateral, NORMAL BREATHING PATTERN, UNREMARKABLE - Cardiovascular Exam Cardiovascular Exam: +S1, +S2 - GI/Abdominal Exam GI & Abdominal Exam: Normal Bowel Sounds, Soft. absent: Distended, Guarding, Rigid, Tenderness - Exam Exam: Scrotal Swelling. absent: Testicular Tenderness, Uretheral Discharge - Extremities Exam Extremities exam: full ROM, normal inspection Discharge Plan - Discharge Medications Prescriptions: levoFLOXacin [Levaquin] 500 mg PO DAILY 10 Days #10 tab - Follow Up Plan Condition: FAIR Disposition: HOME/ ROUTINE Instructions: Cellulitis (Skin Infection), Adult (DC), Epididymitis (DC) Additional Instructions: -Please f/u with PMD within 1 week. -If no improvement, local swelling, intolerable pain or fever, please go to ER. -Finish 10 days of antibiotic: Levofloxacin 500mg once every day. Referrals: [facility] [place] [Outside] Kofi Barrera Jr., MD [Staff Provider] - Zaheer Alcaraz MD [Family Provider] -
[2017-10-12 16:24] VITALS: BP 125/73; PULSE 76; RESP 20; TEMP 98.4; O2SAT 96
[2017-10-12] MEDS ORDERED: Enoxaparin 30 mg Syringe SC SCH (22:00)
[2017-10-12] MEDS ORDERED: Insulin Detemir 100 Units/ml Inj SC SCH (22:00)
[2017-10-13] MEDS ORDERED: Enoxaparin 30 mg Syringe SC SCH (09:00)
--- NOTE | 2017-10-13 12:10 | CON ---
DATE: 10/12/2017 REASON FOR CONSULTATION: Right scrotal cellulitis. HISTORY OF PRESENT ILLNESS: The patient has been on Cipro at home for urinary tract infection. He developed erythema and swelling of the scrotum and felt his testicular pain was not getting better and came to the Emergency Room at [facility] where he was admitted. The patient is a known diabetic. He recently last month was treated for urinary tract infection with Cipro. Denies any prior history of scrotal erythema or epididymitis. He has no significant for any symptoms. REVIEW OF SYSTEMS: RESPIRATORY: The patient has no respiratory complaints. GASTROINTESTINAL: The patient is known diabetic on insulin, Levemir and Januvia. He has no change bad habits, diarrhea or constipation. PULMONARY: There is no respiratory complaints. He has no wheezing or shortness of breath. CARDIAC: The patient has no chest pain or palpitations. GENITOURINARY: The patient is complaining primarily of right scrotal pain and erythema in the scrotum. He has no voiding complaints. ORTHOPEDIC: The patient has no orthopedic complaints. NEUROLOGIC: The patient has no history of tremor. SOCIAL AND FAMILY HISTORY: The patient lives with his at home. He is a . PHYSICAL EXAMINATION: VITAL SIGNS: The patient is afebrile. Vital signs are within normal limits. HEAD, EARS, EYES, NOSE AND THROAT: Within normal limits. NECK: Supple. There is no bruits, nodes or masses. CHEST: Clear bilaterally. There is no rales or rhonchi. HEART: Normal sinus rhythm. There is no murmur. ABDOMEN: Soft and nontender. There is no mass or organomegaly. The patient has no hernias GENITOURINARY:. Scrotum; the patient has slight erythema of the right hemiscrotum and there is tenderness in the right testicle. Left testicle appears normal. Penis is normal. EXTREMITIES: There is full range of motion of lower extremities. No evidence of orthopedic deformity. NEUROLOGIC: The patient has good sensation in both upper and lower extremities. He has full range of movement. LABORATORY DATA: I have also reviewed the laboratory data showing 16,000 white count and the scrotal ultrasound report and I have discussed the case with the resident. ASSESSMENT AND PLAN: My impression is right epididymitis. I will continue the present antibiotics. Pending urine culture done on this admission. If the urine culture indicates different organisms, antibiotic should be adjusted as per sensitivities. Since the patient is improving, I will continue these antibiotics. If the cultures are negative and if the patient fails to improve on present antibiotics, consider Infectious Diseases consult. Kofi Barrera MD
== END 2017-10-12 16:20 | disposition home or self-care (01) ==
LOC: H.ER 19:25 → H.ERHOLD 10-12 03:14 → H.MEDSURG1 10-12 05:09
PROVIDERS: ADMIT Family Medicine Geriatric Medicine; ATTEND Family Medicine Geriatric Medicine
DX: N45.1 Epididymitis (principal); E11.22 Type 2 diabetes mellitus with diabetic chronic kidney disease; N18.9 Chronic kidney disease, unspecified; Z79.4 Long term (current) use of insulin; I12.9 Hypertensive chronic kidney disease with stage 1 through stage 4 chronic kidney disease, or unspecified chronic kidney disease; I25.10 Atherosclerotic heart disease of native coronary artery without angina pectoris; Z95.1 Presence of aortocoronary bypass graft; E11.65 Type 2 diabetes mellitus with hyperglycemia
CPT/HCPCS: 36415; 80053; 81003; 82803; 82948; 85025; 85610; 85730; 86592; 86695; 86696; 86703; 86735; 86803; 87040; 87086; 87491; 87591; 93975; 96361; 96365; 96367; 96375; 99285; G0378; J1885; J7040

== ENCOUNTER 2017-10-16 07:27 | Inpatient (IN) | payer OTHER ==
[2017-10-16 07:33] VITALS: BMI 28.2
[2017-10-16] MEDS ORDERED: Sodium Chloride 0.9% 1,000 ML IV STA ×2 (08:04→08:05)
[2017-10-16] MEDS ORDERED: Insulin Regular 100 units/ml IV STA ×2 (08:04→12:06)
--- NOTE | 2017-10-16 08:07 | ED PDOC ---
HPI: General Adult Time Seen by Provider: 10/16/17 07:41 Chief Complaint (Nursing): Weakness/Neurological Deficit Chief Complaint (Provider): Generalized weakness History Per: Patient History/Exam Limitations: no limitations Onset/Duration Of Symptoms: Hrs Have you had recent travel within the past 21 days to any of the following countries: [place], [place], [place] or [place]?: No Current Symptoms Are (Timing): Still Present Additional History Per: Patient Additional Complaint(s): 67yo male with history of hypertension, diabetes, presents to the ER with complaints of generalized weakness today. Patient denies any associated chest pain, shortness of breath, headache or focal weaknesses. He does report he did not eat anything today. Patient has no other medical complaints. PMD: None Past Medical History Reviewed: Historical Data, Nursing Documentation, Vital Signs Vital Signs: Last Vital Signs Temp 97 F L 10/16/17 07:32 Pulse 68 10/16/17 12:20 Resp 18 10/16/17 08:28 BP 106/59 L 10/16/17 08:28 Pulse Ox 98 10/16/17 12:20 - Medical History PMH: CAD, Diabetes, HTN Denies: HIV, Chronic Kidney Disease - Surgical History Surgical History: CABG, Coronary Stent (carotid) - Family History Family History: States: No Known Family Hx, Unknown Family Hx - Home Medications Home Medications: Ambulatory Orders Medication Instructions Recorded Aspirin [Ecotrin] 81 mg PO DAILY 09/07/17 Atorvastatin [Lipitor] 40 mg PO HS 09/07/17 Clopidogrel [Plavix] 75 mg PO DAILY 09/07/17 Enalapril Maleate [Vasotec] 20 mg PO DAILY 09/07/17 Ginkgo Biloba [place] Extract [Ginkgo 1 cap PO DAILY 09/07/17 Biloba] Glimepiride [amaRYL] 4 mg PO BID 09/07/17 Metoprolol Tartrate [Lopressor] 25 mg PO Q12 09/07/17 SITagliptin [Januvia] 50 mg PO DAILY 09/07/17 Insulin Detemir [Levemir] 15 units SC HS 30 Days #1 vial 09/11/17 levoFLOXacin [Levaquin] 500 mg PO DAILY 10 Days #10 tab 10/12/17 - Allergies Allergies/Adverse Reactions: Allergies Allergy/AdvReac Type Severity Reaction Status Date / Time No Known Allergies Allergy Verified 10/16/17 07:38 Review of Systems ROS Statement: Except As Marked, All Systems Reviewed And Found Negative Constitutional: Positive for: Weakness Cardiovascular: Negative for: Chest Pain Respiratory: Negative for: Shortness of Breath Neurological: Negative for: Weakness (focal), Headache Physical Exam - Reviewed Nursing Documentation Reviewed: Yes Vital Signs Reviewed: Yes - Physical Exam Appears: Positive for: Non-toxic, No Acute Distress Head Exam: Positive for: ATRAUMATIC, NORMAL INSPECTION, NORMOCEPHALIC Skin: Positive for: Normal Color, Dry Eye Exam: Positive for: Normal appearance, PERRL Neck: Positive for: Normal, Supple Cardiovascular/Chest: Positive for: Regular Rate, Rhythm Respiratory: Positive for: Normal Breath Sounds Gastrointestinal/Abdominal: Positive for: Normal Exam, Soft. Negative for: Tenderness Back: Positive for: Normal Inspection Extremity: Positive for: Normal ROM Neurologic/Psych: Positive for: Alert, Oriented. Negative for: Motor/Sensory Deficits - Laboratory Results Result Diagrams: 10/16/17 08:10 10/16/17 08:10 - ECG ECG: Positive for: Interpreted By Me, Viewed By Me ECG Rhythm: Positive for: Sinus Rhythm, ST/T Changes (T wave inversion in 3) Rate: 68 O2 Sat by Pulse Oximetry: 98 (RA) Pulse Ox Interpretation: Normal Medical Decision Making Medical Decision Making: Impression: Generalized weakness Plan: -- IV Fluids -- Labs -- CXR -- Insulin 10 units -- EKG -- Urinalysis Time: 1201 Labs reviewed and patient has markedly high blood glucose level of 611; 8 units human insulin given IV. Urinalysis results reviewed and indicates a UTI. Case discussed with family practice resident, and patient to be admitted under Dr. Jeancarlos Maya for: UTI Hypotension Uncontrolled DM Scribe Attestation: Documented by, Radha Desir acting as a scribe for Naima Davidson MD. Provider Scribe Attestation: All medical record entries made by the Scribe were at my direction and personally dictated by me. I have reviewed the chart and agree that the record accurately reflects my personal performance of the history, physical exam, medical decision making, and the department course for this patient. I have also personally directed, reviewed, and agree with the discharge instructions and disposition. Disposition - Patient ED Disposition Is Patient to be Admitted: Yes - Disposition Disposition Time: 12:01 Forms: [employer] (Maldivian)
[2017-10-16] MEDS ORDERED: Insulin Regular 100 units/ml ONE ×2 (08:19→16:12)
[2017-10-16 08:28] LABS: BASO # 0.1 K/uL (0.0-0.2); BASO % 0.7 % (0.0-2.0); EOS # 0.4 K/uL (0.0-0.7); EOS % 2.8 % (0.0-4.0); HEMOGLOBIN 13.9 g/dL (12.0-18.0); LYMPH # 1.2 K/uL (1.0-4.3); LYMPH % 8.2 % (20.0-40.0); MEAN CELL VOLUME 87.2 fl (80.0-94.0); MEAN CORPUSCULAR HEMOGLOBIN 29.9 pg (27.0-31.0); MEAN CORPUSCULAR HGB CONC 34.3 g/dL (33.0-37.0); MEAN PLATELET VOLUME 8.8 fl (7.2-11.7); MONO # 1.1 K/uL (0.0-0.8); MONO % 7.6 % (0.0-10.0); NEUT # 12.1 K/uL (1.8-7.0); NEUT % 80.7 % (50.0-75.0); NRBC % 0.1 % (0.0-0.0); PLATELET COUNT 285 K/uL (130-400); RBC 4.67 Mil/uL (4.40-5.90); RED CELL DISTRIBUTION WIDTH 13.4 % (11.5-14.5)
[2017-10-16 08:34] LABS: SQUAMOUS EPITHIAL < 1 /hpf (0-5); URINE BILIRUBIN NEGATIVE (NEGATIVE); URINE BLOOD NEGATIVE (NEGATIVE); URINE CLARITY CLEAR (Clear); URINE COLOR YELLOW (YELLOW); URINE GLUCOSE (UA) >=500 mg/dL (Normal); URINE HYALINE CAST 0-2 /hpf (0-2); URINE LEUKOCYTE ESTERASE TRACE Leu/uL (Negative); URINE PROTEIN NEGATIVE (NEGATIVE); URINE UROBILINOGEN 0.2-1.0 mg/dL (0.2-1.0)
[2017-10-16 08:40] LABS: INR 1.2 (0.9-1.2); PARTIAL THROMBOPLASTIN TIME 24.1 Seconds (25.6-37.1); PROTHROMBIN TIME 12.8 Seconds (9.8-13.1)
--- NOTE | 2017-10-16 08:46 | RAD ---
HISTORY: Weakness COMPARISON: No prior. FINDINGS: LUNGS: No active pulmonary disease. PLEURA: No significant pleural effusion identified, no pneumothorax apparent. CARDIOVASCULAR: Normal. OSSEOUS STRUCTURES: Sternotomy wires identified as well as mediastinal surgical clips likely status post CABG. VISUALIZED UPPER ABDOMEN: Normal. OTHER FINDINGS: None. IMPRESSION: No acute cardiopulmonary disease appreciated.
[2017-10-16 08:52] LABS: ALB/GLOB RATIO 0.9 (1.0-2.1); ALT/SGPT 40 U/L (21-72); AST/SGOT 31 U/L (17-59); BLOOD UREA NITROGEN 41 mg/dl (9-20); CALCIUM 9.3 mg/dL (8.4-10.2); GFR AFRICAN-AMERICAN 39; GFR NON-AFRICAN AMERICAN 32
[2017-10-16 09:08] LABS: VENOUS BLOOD GAS BASE EXCESS -0.1 mmol/L (0.0-2.0); VENOUS BLOOD GAS PCO2 54 mmHg (40-60); VENOUS BLOOD GAS PO2 27 mm/Hg (30-55); VENOUS BLOOD PH 7.31 (7.32-7.43)
[2017-10-16 09:26] LABS: EOSINOPHIL 4 % (0-7); LYMPHOCYTE 11 % (20-50); MONOCYTE 9 % (0-10); NEUTROPHIL 76 % (42-75); PLATELET ESTIMATE NORMAL (NORMAL); TOTAL CELLS COUNTED 100
--- NOTE | 2017-10-16 09:30 | CARD ---
APPROVED REPORT EKG Measurement Heart [id number] <Conclusion> Normal sinus rhythm Cannot rule out Anterior infarct, age undetermined Abnormal ECG
[2017-10-16] MEDS ORDERED: cefTRIAXone (Rocephin) 1 gm Inj ONE (11:00)
--- NOTE | 2017-10-16 14:14 | CP.PCM.HP ---
History of Present Illness - History of Present Illness History of Present Illness: Hx taken from patient and medical record Full code PMD: NHC 67 y/o male with a pmhx of uncontrolled IDDM, CKD, right epididymitis presented to ED with c/o profuse sweating this morning that lasted for 20-30 min. This morning pt denies any chest pain, palpitation, dyspnea, headache, dizziness, blurry vision, nausea, vomiting, focal weakness during sweating. Denies any LOC or hitting head. Pt has hx right testicular pain, redness and swelling for 1 week and discharged from [facility] on 10/12/17 with levaquin 500 mg qd for 10 days. Pt reports his right testicular pain has improved by 50% with less swelling and erythema of the testicle. Denies dysuria, urethral discharge, change in sexual behaviour pattern, diarrhea, urinary retention. Patient uses insulin levemir 15 units HS and Januvia/Glimepiride at home for DM control. He doesnt check BS levels at home because he does not have glucometer. ED course: vitals: BP 106/59, Pulse 68, RR 18, Temp 97 F, pulse ox 98% WBC: 15.0 left shift BUN/Creat 41/2.1 Na 129 UA: trace leukocytes, nit: negative, microscopic wbc 6 BS: 478 IVF'S: 2 L NS Rocephin 1 gm ivp Humulin 18 units PMH: DM poor controlled, HTN, CKD, CAD s/p CABG SxHx: CABG x2, carotid stent Allergies: NKDA. FMH: denies. SH: Lives in a house with and 2 sons. Denies alcohol, tobacco or drugs. Present on Admission - Present on Admission Any Indicators Present on Admission: Yes Review of Systems - Constitutional Constitutional: absent: Chills, Fever, Headache - EENT Eyes: absent: Blurred Vision, Change in Vision Nose/Mouth/Throat: absent: Dysphagia, Sore Throat - Cardiovascular Cardiovascular: absent: Chest Pain, Chest Pain at Rest, Dyspnea, Palpitations - Respiratory Respiratory: absent: Cough, Dyspnea - Gastrointestinal Gastrointestinal: absent: Abdominal Pain, Constipation, Diarrhea, Nausea, Vomiting - Genitourinary Genitourinary: absent: Dysuria, Hematuria, Urinary Frequency, Urinary Urgency - Reproductive: Male Additional comments: right testicular pain and swelling - Musculoskeletal Musculoskeletal: absent: Back Pain, Muscle Weakness - Neurological Neurological: absent: Abnormal Gait, Confusion, Dizziness, Focal Weakness, Headaches, Paresthesias, Weakness Past Patient History - Past Medical History & Family History Past Medical History?: Yes - Past Social History Smoking Status: Never Smoked - CARDIAC Hx Hypertension: Yes - PULMONARY Hx Respiratory Disorders: No - NEUROLOGICAL Hx Neurological Disorder: No - HEENT Hx HEENT Problems: No - RENAL Hx Chronic Kidney Disease: No - ENDOCRINE/METABOLIC Hx Endocrine Disorders: Yes - HEMATOLOGICAL/ONCOLOGICAL Hx Human Immunodeficiency Virus (HIV): No - INTEGUMENTARY Hx Dermatological Problems: No - MUSCULOSKELETAL/RHEUMATOLOGICAL Hx Falls: No - GASTROINTESTINAL Hx Gastrointestinal Disorders: No - GENITOURINARY/GYNECOLOGICAL Hx Genitourinary Disorders: No - PSYCHIATRIC Hx Psychophysiologic Disorder: No Hx Substance Use: No - SURGICAL HISTORY Hx Coronary Artery Bypass Graft: Yes Hx Coronary Stent: Yes (carotid) - ANESTHESIA Hx Anesthesia: Yes Hx Anesthesia Reactions: No Hx Malignant Hyperthermia: No Meds Allergies/Adverse Reactions: Allergies Allergy/AdvReac Type Severity Reaction Status Date / Time No Known Allergies Allergy Verified 10/16/17 07:38 Physical Exam - Constitutional Appears: Non-toxic, No Acute Distress - Head Exam Head Exam: ATRAUMATIC, NORMAL INSPECTION, NORMOCEPHALIC - Eye Exam Eye Exam: EOMI, Normal appearance. absent: Scleral icterus - ENT Exam ENT Exam: Mucous Membranes Moist, Normal Oropharynx - Neck Exam Neck exam: Positive for: Normal Inspection. Negative for: Lymphadenopathy - Respiratory Exam Respiratory Exam: Clear to Auscultation Bilateral, NORMAL BREATHING PATTERN. absent: Rales, Rhonchi, Wheezes - Cardiovascular Exam Cardiovascular Exam: REGULAR RHYTHM, RRR, +S1, +S2 - GI/Abdominal Exam GI & Abdominal Exam: Normal Bowel Sounds, Soft. absent: Rebound, Tenderness - Exam Exam: absent: Uretheral Discharge Additional comments: Uncircumcised. No penile discharge. Moderate right testicle and scrotal swelling with mild tenderness and hardness of right testicle. Scrotal redness does not extend to the left scrotum. - Extremities Exam Extremities exam: Positive for: normal inspection. Negative for: calf tenderness, pedal edema - Back Exam Back exam: absent: CVA tenderness (L), CVA tenderness (R) - Neurological Exam Neurological exam: Alert, Normal Gait, Oriented x3 - Psychiatric Exam Psychiatric exam: Normal Affect, Normal Mood - Skin Skin Exam: Dry, Warm Results - Vital Signs Recent Vital Signs: Last Vital Signs Temp 97 F L 10/16/17 07:32 Pulse 68 10/16/17 12:21 Resp 18 10/16/17 08:28 BP 106/59 L 10/16/17 08:28 Pulse Ox 98 10/16/17 12:21 - Labs Result Diagrams: 10/16/17 08:10 10/16/17 15:44 Labs: Laboratory Results - last 24 hr 10/16/17 10/16/17 10/16/17 07:40 08:05 08:10 WBC RBC Hgb Hct MCV MCH MCHC RDW Plt Count MPV Neut % (Auto) Lymph % (Auto) [place] % (Auto) Eos % (Auto) Baso % (Auto) Neut # (Auto) Lymph # (Auto) [place] # (Auto) Eos # (Auto) Baso # (Auto) Neutrophils % (Manual) Lymphocytes % (Manual) Monocytes % (Manual) Eosinophils % (Manual) Platelet Estimate RBC Morphology PT INR APTT pO2 27 L VBG pH 7.31 L VBG pCO2 54 VBG HCO3 23.5 VBG Total CO2 28.9 H VBG O2 Sat (Calc) 52.9 VBG Base Excess -0.1 L VBG Potassium 5.5 H Sodium 128.0 L Chloride 90.0 L Glucose 611 H* D Lactate 1.9 FiO2 21.0 Crit Value Called To Naima orellana md Crit Value Called By 15 Crit Value Read Back Y Blood Gas Notified Time 908 Potassium Carbon Dioxide Anion Gap BUN Creatinine Est GFR ( Amer) Est GFR (Non-Af Amer) POC Glucose (mg/dL) 478 H* Random Glucose Calcium Total Bilirubin AST ALT Alkaline Phosphatase Troponin I Total Protein Albumin Globulin Albumin/Globulin Ratio Venous Blood Potassium 5.5 H Urine Color Yellow Urine Clarity Clear Urine pH 5.0 Ur Specific [place] 1.020 Urine Protein Negative Urine Glucose (UA) >=500 Urine Ketones Negative Urine Blood Negative Urine Nitrate Negative Urine Bilirubin Negative Urine Urobilinogen 0.2-1.0 Ur Leukocyte Esterase Trace Urine RBC (Auto) 1 Urine Microscopic WBC 6 H Ur Squamous Epith Cells < 1 Hyaline Casts 0-2 10/16/17 10/16/17 10/16/17 08:10 08:10 08:10 WBC 15.0 H RBC 4.67 Hgb 13.9 Hct 40.7 MCV 87.2 MCH 29.9 MCHC 34.3 RDW 13.4 Plt Count 285 MPV 8.8 Neut % (Auto) 80.7 H Lymph % (Auto) 8.2 L [place] % (Auto) 7.6 Eos % (Auto) 2.8 Baso % (Auto) 0.7 Neut # (Auto) 12.1 H Lymph # (Auto) 1.2 [place] # (Auto) 1.1 H Eos # (Auto) 0.4 Baso # (Auto) 0.1 Neutrophils % (Manual) 76 H Lymphocytes % (Manual) 11 L Monocytes % (Manual) 9 Eosinophils % (Manual) 4 Platelet Estimate Normal RBC Morphology Normal PT 12.8 INR 1.2 APTT 24.1 L pO2 VBG pH VBG pCO2 VBG HCO3 VBG Total CO2 VBG O2 Sat (Calc) VBG Base Excess VBG Potassium Sodium 129 L Chloride 91 L Glucose Lactate FiO2 Crit Value Called To Crit Value Called By Crit Value Read Back Blood Gas Notified Time Potassium 5.1 H Carbon Dioxide 21 L Anion Gap 22 H BUN 41 H Creatinine 2.1 H Est GFR ( Amer) 39 Est GFR (Non-Af Amer) 32 POC Glucose (mg/dL) Random Glucose 592 H* D Calcium 9.3 Total Bilirubin 0.7 AST 31 ALT 40 Alkaline Phosphatase 99 Troponin I < 0.0120 Total Protein 8.2 Albumin 4.0 Globulin 4.2 H Albumin/Globulin Ratio 0.9 L Venous Blood Potassium Urine Color Urine Clarity Urine pH Ur Specific [place] Urine Protein Urine Glucose (UA) Urine Ketones Urine Blood Urine Nitrate Urine Bilirubin Urine Urobilinogen Ur Leukocyte Esterase Urine RBC (Auto) Urine Microscopic WBC Ur Squamous Epith Cells Hyaline Casts 10/16/17 12:00 WBC RBC Hgb Hct MCV MCH MCHC RDW Plt Count MPV Neut % (Auto) Lymph % (Auto) [place] % (Auto) Eos % (Auto) Baso % (Auto) Neut # (Auto) Lymph # (Auto) [place] # (Auto) Eos # (Auto) Baso # (Auto) Neutrophils % (Manual) Lymphocytes % (Manual) Monocytes % (Manual) Eosinophils % (Manual) Platelet Estimate RBC Morphology PT INR APTT pO2 VBG pH VBG pCO2 VBG HCO3 VBG Total CO2 VBG O2 Sat (Calc) VBG Base Excess VBG Potassium Sodium Chloride Glucose Lactate FiO2 Crit Value Called To Crit Value Called By Crit Value Read Back Blood Gas Notified Time Potassium Carbon Dioxide Anion Gap BUN Creatinine Est GFR ( Amer) Est GFR (Non-Af Amer) POC Glucose (mg/dL) 429 H* Random Glucose Calcium Total Bilirubin AST ALT Alkaline Phosphatase Troponin I Total Protein Albumin Globulin Albumin/Globulin Ratio Venous Blood Potassium Urine Color Urine Clarity Urine pH Ur Specific [place] Urine Protein Urine Glucose (UA) Urine Ketones Urine Blood Urine Nitrate Urine Bilirubin Urine Urobilinogen Ur Leukocyte Esterase Urine RBC (Auto) Urine Microscopic WBC Ur Squamous Epith Cells Hyaline Casts Assessment & Plan - Assessment and Plan (Free Text) Assessment: 67 yo male with a pmhx of uncontrolled IDDM and CKD stage 3 admitted for right epididymitis, uncontrolled DM and acute kidney injury. Acute right epididymitis -Testicles US on 10/11/17 shows right epididymitis -Leukocytosis with left shift today -UA + for RBC and leukocytes -Continue on Levaquin 500mg IVdaily -S/P 1 gm of IV ceftriaxone in ED -F/U CBC Uncontrolled IDDM -FSG in ED 478. -Last HgbA1c 11 on 08/2017 -Start Levemir 15 units HS and ISS medium dose -C/W Januvia 50 mg daily(Adjusted renal dose) and Glimeperide -Monitor Acute kidney injury on CKD Stage 3 -Elevated BUN/Creat (41/2.1) from baseline -Poss due to infection/dehydration -Repeat BMP shows better BUN/Cr: 36/1.7 -s/p 2 L NS in ED -Start NS at 120 cc/hr -Monitor HTN -Stable C/w home meds DVT prophylaxis -SCD's for now
[2017-10-16] MEDS ORDERED: Lactated Ringer's 1,000 ML IV SCH (15:30)
[2017-10-16 17:55] LABS: BLOOD UREA NITROGEN 36 mg/dl (9-20); CALCIUM 8.8 mg/dL (8.4-10.2); GFR AFRICAN-AMERICAN 49; GFR NON-AFRICAN AMERICAN 41
[2017-10-16] MEDS: Insulin Lispro (humaLOG) 100 Units/ml Inj SC SCH ×2 (18:56→21:37)
[2017-10-16] MEDS: GlipiZIDE 10 mg SR Tab PO SCH (18:56)
[2017-10-16] MEDS: Sodium Chloride 0.9% 1,000 ML IV SCH (19:04)
[2017-10-16] MEDS: Insulin Detemir 100 Units/ml Inj SC SCH (21:39)
[2017-10-17] MEDS: Sodium Chloride 0.9% 1,000 ML IV SCH ×2 (03:00→13:00)
--- NOTE | 2017-10-17 07:00 | CP.PCM.PN ---
Subjective - Date & Time of Evaluation Date of Evaluation: 10/17/17 Time of Evaluation: 07:45 - Subjective Subjective: Patient seen and examined at bedside this morning. No acute overnight events. Pt reports his right testicular pain and swelling remain the same. Denies any night sweats, fever, chills, nausea, vomiting, abdominal pain, dysuria, chest pain, dyspnea or cough. Tolerating PO. Has regular BM and voiding w/o difficulty. Objective - Vital Signs/Intake and Output Vital Signs (last 24 hours): Temp Pulse Resp BP Pulse Ox 98.5 F 76 18 155/67 H 95 10/17/17 04:52 10/17/17 04:52 10/17/17 04:52 10/17/17 04:52 10/17/17 04:52 - Medications Medications: Current Medications Aspirin (Ecotrin) 81 mg PO DAILY [facility] Atorvastatin Calcium (Lipitor) 40 mg PO HS [facility] Last Admin: 10/16/17 21:41 Dose: 40 mg Clopidogrel Bisulfate (Plavix) 75 mg PO DAILY [facility] Enalapril Maleate (Vasotec) 20 mg PO DAILY [facility] Glipizide (Glucotrol Xl) 10 mg PO BID [facility] Last Admin: 10/16/17 18:56 Dose: 10 mg Sodium Chloride (Sodium Chloride 0.9%) 1,000 mls @ 120 mls/hr IV .[id number] [facility] Stop: 10/17/17 18:19 Last Admin: 10/16/17 19:04 Dose: 120 mls/hr Insulin Detemir (Levemir) 15 units SC [facility] Last Admin: 10/16/17 21:39 Dose: 15 u Insulin Human Lispro (Humalog) 0 units SC [facility] PRN Reason: Protocol Last Admin: 10/16/17 21:37 Dose: 3 unit Levofloxacin (Levaquin) 500 mg PO DAILY [facility] PRN Reason: Protocol Sitagliptin Phosphate (Januvia) 50 mg PO DAILY [facility] - Labs Labs: 10/16/17 08:10 10/16/17 15:44 PT 12.8 Seconds (9.8-13.1) 10/16/17 08:10 INR 1.2 (0.9-1.2) 10/16/17 08:10 APTT 24.1 Seconds (25.6-37.1) L 10/16/17 08:10 - Additional Findings Additional findings: - Constitutional Appears: Non-toxic, No Acute Distress - Head Exam Head Exam: NORMAL INSPECTION - Eye Exam Eye Exam: EOMI, Normal appearance. absent: Scleral icterus - ENT Exam ENT Exam: Mucous Membranes Moist, Normal Oropharynx - Neck Exam Neck exam: Positive for: Normal Inspection. Negative for: Lymphadenopathy - Respiratory Exam Respiratory Exam: Clear to Auscultation Bilateral, NORMAL BREATHING PATTERN. absent: Rales, Rhonchi, Wheezes - Cardiovascular Exam Cardiovascular Exam: REGULAR RHYTHM, RRR, +S1, +S2 - GI/Abdominal Exam GI & Abdominal Exam: Normal Bowel Sounds, Soft. absent: Rebound, Tenderness - Exam Exam: absent: Uretheral Discharge Additional comments: Uncircumcised. No penile discharge. Moderate right testicle and scrotal swelling with mild tenderness and hardness of right testicle. Scrotal redness does not extend to the left scrotum. - Extremities Exam Extremities exam: Positive for: normal inspection. Negative for: calf tenderness, pedal edema - Back Exam Back exam: absent: CVA tenderness (L), CVA tenderness (R) - Neurological Exam Neurological exam: Alert, Normal Gait, Oriented x3 - Psychiatric Exam Psychiatric exam: Normal Affect, Normal Mood - Skin Skin Exam: Dry, Warm Assessment and Plan - Assessment and Plan (Free Text) Assessment: 67 yo male with a pmhx of uncontrolled IDDM and CKD stage 3 admitted for right epididymitis, uncontrolled DM and acute kidney injury. Acute right epididymitis -Testicles US on 10/11/17 shows right epididymitis -Leukocytosis with left shift on admission -UA + for RBC and leukocytes -Start Levaquin 750 mg IVP daily -S/P 1 gm of IV ceftriaxone in ED yesterday -F/U scrotal US Uncontrolled IDDM -FSG in ED 478. -Last HgbA1c 11 on 08/2017 -Start Levemir 15 units HS and ISS medium dose -C/W Januvia 50 mg daily(Adjusted renal dose) and Glimeperide -Monitor Acute kidney injury on CKD Stage 3 -Elevated BUN/Creat (41/2.1) from baseline -Poss due to infection/dehydration -s/p 2 L NS in ED -BUN/Cr: 23/1.2 today -Start NS at 42 cc/hr -F/U renal duplex and bladder US -Monitor HTN -Stable C/w home meds DVT prophylaxis -SCD's -Lovenox 40 mg SC [facility]hs Code status Full code
[2017-10-17] MEDS: Insulin Lispro (humaLOG) 100 Units/ml Inj SC SCH ×4 (07:12→23:00)
[2017-10-17 08:55] LABS: HEMOGLOBIN 12.6 g/dL (12.0-18.0); MEAN CELL VOLUME 86.2 fl (80.0-94.0); MEAN CORPUSCULAR HEMOGLOBIN 30.4 pg (27.0-31.0); MEAN CORPUSCULAR HGB CONC 35.3 g/dL (33.0-37.0); RBC 4.14 Mil/uL (4.40-5.90); RED CELL DISTRIBUTION WIDTH 13.4 % (11.5-14.5); WHITE BLOOD COUNT 9.6 K/uL (4.8-10.8)
[2017-10-17] MEDS: GlipiZIDE 10 mg SR Tab PO SCH ×2 (08:57→17:56)
[2017-10-17] MEDS ORDERED: levoFLOXacin 500 MG TAB PO SCH (09:00)
[2017-10-17 09:16] LABS: ALB/GLOB RATIO 0.9 (1.0-2.1); ALBUMIN 3.4 g/dL (3.5-5.0); ALT/SGPT 39 U/L (21-72); AST/SGOT 33 U/L (17-59); BLOOD UREA NITROGEN 23 mg/dl (9-20); CALCIUM 8.7 mg/dL (8.4-10.2); GFR AFRICAN-AMERICAN > 60; GFR NON-AFRICAN AMERICAN > 60
[2017-10-17] MEDS ORDERED: levoFLOXacin 750 mg in D5W 750 MG/150 ML BAG IVPB SCH (10:00)
--- NOTE | 2017-10-17 10:41 | CP.PCM.PN ---
Subjective - Date & Time of Evaluation Date of Evaluation: 10/17/17 Time of Evaluation: 10:37 - Subjective Subjective: Pt examined chart reviewed. discussed with resident. Pt on telemetry who was here last week with epiditimis on levaguin. A Epidimioorchitis Suggest continue present antibiotics if pt fails to improve after two weeks consider ID consult and repeat scrotal US> HOSAY Objective - Vital Signs/Intake and Output Vital Signs (last 24 hours): Temp Pulse Resp BP Pulse Ox 98.3 F 69 18 172/84 H 98 10/17/17 07:59 10/17/17 09:00 10/17/17 07:59 10/17/17 07:59 10/17/17 07:59 - Medications Medications: Current Medications Aspirin (Ecotrin) 81 mg PO DAILY [facility] Last Admin: 10/17/17 08:57 Dose: 81 mg Atorvastatin Calcium (Lipitor) 40 mg PO HS [facility] Last Admin: 10/16/17 21:41 Dose: 40 mg Clopidogrel Bisulfate (Plavix) 75 mg PO DAILY [facility] Last Admin: 10/17/17 08:58 Dose: 75 mg Enalapril Maleate (Vasotec) 20 mg PO DAILY [facility] Last Admin: 10/17/17 08:58 Dose: 20 mg Glipizide (Glucotrol Xl) 10 mg PO BID [facility] Last Admin: 10/17/17 08:57 Dose: 10 mg Levofloxacin/Dextrose (Levaquin 750mg) 750 mg in 150 mls @ 100 mls/hr IVPB DAILY [facility] PRN Reason: Protocol Insulin Detemir (Levemir) 15 units SC HS [facility] Last Admin: 10/16/17 21:39 Dose: 15 u Insulin Human Lispro (Humalog) 0 units SC [facility] PRN Reason: Protocol Last Admin: 10/17/17 07:12 Dose: 3 unit Levofloxacin (Levaquin) 500 mg PO DAILY [facility] PRN Reason: Protocol Last Admin: 10/17/17 08:57 Dose: 500 mg Sitagliptin Phosphate (Januvia) 50 mg PO DAILY [facility] Last Admin: 10/17/17 08:57 Dose: 50 mg - Labs Labs: 10/17/17 08:48 10/17/17 08:48 PT 12.8 Seconds (9.8-13.1) 10/16/17 08:10 INR 1.2 (0.9-1.2) 10/16/17 08:10 APTT 24.1 Seconds (25.6-37.1) L 10/16/17 08:10
[2017-10-17 14:49] LABS: SQUAMOUS EPITHIAL < 1 /hpf (0-5); URINE BILIRUBIN NEGATIVE (NEGATIVE); URINE BLOOD NEGATIVE (NEGATIVE); URINE CLARITY CLEAR (Clear); URINE COLOR STRAW (YELLOW); URINE GLUCOSE (UA) >=500 mg/dL (Normal); URINE LEUKOCYTE ESTERASE NEG Leu/uL (Negative); URINE PROTEIN NEGATIVE (NEGATIVE); URINE UROBILINOGEN 0.2-1.0 mg/dL (0.2-1.0)
--- NOTE | 2017-10-17 15:14 | PQF GENQUE ---
Dr. Us, Please specify the type, of diabetes: i.e Type 1 Type 2 Due to an underlying condition/secondary (please specify condition) Due to drugs or chemical (please specify associated drug or chemical) Other (please specify) Clinically unable to determine Unknown H and P: Uncontrolled IDDM -FSG in ED 478. -Last HgbA1c 11 on 08/2017 -Start Levemir 15 units HS and ISS medium dose -C/W Januvia 50 mg daily(Adjusted renal dose) and Glimeperide -Monitor This form is a permanent part of the medical record Clarification of your documentation is requested to better reflect the severity of illness and intensity of treatment of your patient. Indicators present [] Specify: [] [] Specify: [] [] Specify: [] [] Specify: [] Location in the medical record that reflects the above clinical findings: [] Treatment Provided: [] PHYSICIAN'S RESPONSE type 2 Diabetes Based on your medical judgment of the clinical indicators outlined above please clarify the following: [] Practitioner response [] If unable to determine, please check the box, sign and date. Present On Admission (POA) Indicator: [] Present at the time of admission [] Not present at the time of admission [] Clinically Undetermined In responding to this query, please exercise your independent professional judgment. The fact that a question is asked does not imply that any particular answer is desired or expected. Thank you for your clarification on this documentation. If you have any questions please call. * Thank you, Analia Arroyo RN ext. #[phone] MTDD
[2017-10-17] MEDS: Enoxaparin 40 mg Syringe SC SCH (23:00)
[2017-10-17] MEDS: Insulin Detemir 100 Units/ml Inj SC SCH (23:00)
[2017-10-18 06:27] LABS: HEMOGLOBIN 13.2 g/dL (12.0-18.0); MEAN CELL VOLUME 87.4 fl (80.0-94.0); MEAN CORPUSCULAR HGB CONC 34.3 g/dL (33.0-37.0); RBC 4.38 Mil/uL (4.40-5.90); RED CELL DISTRIBUTION WIDTH 13.6 % (11.5-14.5); WHITE BLOOD COUNT 9.9 K/uL (4.8-10.8)
--- NOTE | 2017-10-18 06:38 | CP.PCM.PN ---
Subjective - Date & Time of Evaluation Date of Evaluation: 10/18/17 Time of Evaluation: 07:30 - Subjective Subjective: Patient seen and examined this morning. Pt reports his right testicular pain and swelling are improving. No acute overnight events. Denies any night sweats, fever, chills, nausea, vomiting, abdominal pain, dysuria, chest pain, dyspnea or cough. Tolerating PO. Has regular BM and voiding w/o difficulty Objective - Vital Signs/Intake and Output Vital Signs (last 24 hours): Temp Pulse Resp BP Pulse Ox 98.4 F 78 18 145/79 98 10/18/17 04:34 10/18/17 04:34 10/18/17 04:34 10/18/17 04:34 10/18/17 04:34 Intake and Output: 10/17/17 10/18/17 18:59 06:59 Intake Total 1600 924 Balance 1600 924 - Medications Medications: Current Medications Aspirin (Ecotrin) 81 mg PO DAILY [facility] Last Admin: 10/17/17 08:57 Dose: 81 mg Atorvastatin Calcium (Lipitor) 40 mg PO [facility] Last Admin: 10/17/17 23:00 Dose: 40 mg Clopidogrel Bisulfate (Plavix) 75 mg PO DAILY [facility] Last Admin: 10/17/17 08:58 Dose: 75 mg Enalapril Maleate (Vasotec) 20 mg PO DAILY [facility] Last Admin: 10/17/17 08:58 Dose: 20 mg Enoxaparin Sodium (Lovenox) 40 mg SC [facility] PRN Reason: Protocol Last Admin: 10/17/17 23:00 Dose: 40 mg Glipizide (Glucotrol Xl) 10 mg PO BID [facility] Last Admin: 10/17/17 17:56 Dose: 10 mg Sodium Chloride (Sodium Chloride 0.9%) 1,000 mls @ 42 mls/hr IV .[id number] [facility] Stop: 10/18/17 11:10 Last Admin: 10/17/17 13:00 Dose: 42 mls/hr Levofloxacin/Dextrose (Levaquin 750mg) 750 mg in 150 mls @ 100 mls/hr IVPB DAILY [facility] PRN Reason: Protocol Insulin Detemir (Levemir) 15 units SC [facility] Last Admin: 10/17/17 23:00 Dose: 15 u Insulin Human Lispro (Humalog) 0 units SC [facility] PRN Reason: Protocol Last Admin: 10/17/17 23:00 Dose: Not Given Sitagliptin Phosphate (Januvia) 50 mg PO DAILY [facility] Last Admin: 10/17/17 08:57 Dose: 50 mg - Labs Labs: 10/17/17 08:48 10/17/17 08:48 PT 12.8 Seconds (9.8-13.1) 10/16/17 08:10 INR 1.2 (0.9-1.2) 10/16/17 08:10 APTT 24.1 Seconds (25.6-37.1) L 10/16/17 08:10 - Additional Findings Additional findings: - Constitutional Appears: Non-toxic, No Acute Distress - Head Exam Head Exam: NORMAL INSPECTION - Eye Exam Eye Exam: EOMI, Normal appearance. - ENT Exam ENT Exam: Mucous Membranes Moist, Normal Oropharynx - Neck Exam Neck exam: Positive for: Normal Inspection. Negative for: Lymphadenopathy - Respiratory Exam Respiratory Exam: Clear to Auscultation Bilateral, NORMAL BREATHING PATTERN. absent: Rales, Rhonchi, Wheezes - Cardiovascular Exam Cardiovascular Exam: REGULAR RHYTHM, RRR, +S1, +S2 - GI/Abdominal Exam GI & Abdominal Exam: Normal Bowel Sounds, Soft. absent: Rebound, Tenderness - Exam Exam: absent: Uretheral Discharge Additional comments: Uncircumcised. No penile discharge. Mild right scrotal swelling with hardness of right testicle (improved). Scrotal redness does not extend to the left scrotum. - Extremities Exam Extremities exam: Positive for: normal inspection. Negative for: calf tenderness, pedal edema - Back Exam Back exam: absent: CVA tenderness (L), CVA tenderness (R) - Neurological Exam Neurological exam: Alert, Normal Gait, Oriented x3 - Psychiatric Exam Psychiatric exam: Normal Affect, Normal Mood - Skin Skin Exam: Dry, Warm Assessment and Plan - Assessment and Plan (Free Text) Assessment: 67 yo male with a pmhx of uncontrolled IDDM and CKD stage 3 admitted for right epididymo-orchitis, uncontrolled DMII and acute kidney injury. Acute right epididymo-orchitis -Testicles US on 10/11/17 shows right epididymitis -Leukocytosis with left shift on admission -UA + for RBC and leukocytes -Start Levaquin 750 mg IVP daily ( received levaquin 500 mg po yesterday) -S/P 1 gm of IV ceftriaxone in ED yesterday -Urology consult appreciated -F/U scrotal US Uncontrolled IDDM II -FSG in ED 478. -Last HgbA1c 11 on 08/2017 -Increase Levemir to 20 units HS from 15 units and ISS medium dose -C/W Januvia 50 mg daily(Adjusted renal dose) and Glimeperide -Improving -Monitor Acute kidney injury on CKD Stage 3 -Elevated BUN/Creat (41/2.1) from baseline -Poss due to infection/dehydration -BUN/Cr: 22/1.2 today -Improved -Continue NS at 42 cc/hr -F/U renal duplex and bladder US -F/U CHAD, ESR, complement level, Microalbumin -F/U Nephrology consult CAD -stable -c/w home medications HTN -Stable C/w home meds DVT prophylaxis -SCD's -Lovenox 40 mg SC Qhs Code status Full code
[2017-10-18] MEDS: Insulin Lispro (humaLOG) 100 Units/ml Inj SC SCH ×4 (06:43→22:05)
[2017-10-18 06:48] LABS: BLOOD UREA NITROGEN 22 mg/dl (9-20); CALCIUM 9.2 mg/dL (8.4-10.2); GFR AFRICAN-AMERICAN > 60; GFR NON-AFRICAN AMERICAN 55
[2017-10-18] MEDS: GlipiZIDE 10 mg SR Tab PO SCH ×2 (08:26→17:09)
[2017-10-18] MEDS: levoFLOXacin 750 mg in D5W 750 MG/150 ML BAG IVPB SCH (08:36)
--- NOTE | 2017-10-18 10:11 | CP.PCM.CON ---
History of Present Illness - History of Present Illness History of Present Illness: RENAL CONSULT HPI: 67 y/o male with a pmhx of DM, CKD III, CAD that presented to ER initially w/ profuse sweating and was sent in from his He recently was diagnosed w/ epididitmitis on 10/12 and was taking medications for his. He states that he was still having pain but that it was improved. He denies any n/v. He states appetite has been good. When he came in his bp was low. He was on enalapril at home. He currently feels fine. He was seen by . Labs were significant for BELÉN on admission which is now improved. ROS: a full detailed ROS is negative except as in my hpi pmh: dm, htn, ckd III, CAD s/p cabg Allergies: NKDA. FMH: denies esrd in family SH: Lives in a house with and 2 sons. Denies alcohol, tobacco or drugs. pe: vs as below gen: nad sclera: anicteric op clear neck: supple no thyromegaly cv: +s1+s2 no rub lungs: cta b/l abd: soft no organomegaly ext: no edema neuro: a+Ox3 psych:Nml affect skin no rash labs and imaging reviewed imp: ARF / Epididimytis/ leukocytosis /hypertension plan: BELÉN resolved, back to baseline. UA bland other than glucosuria. Seemed consistent w/ hypovolemia/infection. Perhaps belén episodes related to not tolerating the barb-i. would consider using a reduced dose perhaps 5 mg as outpt. If continues would also consider renal aa dopplers to make sure no significant renal aa stenosis given cardiac hx. thank you for this interesting consult will continue to follow with you Past Patient History - Past Medical History & Family History Past Medical History?: Yes - Past Social History Smoking Status: Never Smoked - CARDIAC Hx Hypertension: Yes - PULMONARY Hx Respiratory Disorders: No - NEUROLOGICAL Hx Neurological Disorder: No - HEENT Hx HEENT Problems: No - RENAL Hx Chronic Kidney Disease: No - ENDOCRINE/METABOLIC Hx Endocrine Disorders: Yes - HEMATOLOGICAL/ONCOLOGICAL Hx Human Immunodeficiency Virus (HIV): No - INTEGUMENTARY Hx Dermatological Problems: No - MUSCULOSKELETAL/RHEUMATOLOGICAL Hx Falls: No - GASTROINTESTINAL Hx Gastrointestinal Disorders: No - GENITOURINARY/GYNECOLOGICAL Hx Genitourinary Disorders: No - PSYCHIATRIC Hx Psychophysiologic Disorder: No Hx Substance Use: No - SURGICAL HISTORY Hx Coronary Artery Bypass Graft: Yes Hx Coronary Stent: Yes (carotid) - ANESTHESIA Hx Anesthesia: Yes Hx Anesthesia Reactions: No Hx Malignant Hyperthermia: No Meds Allergies/Adverse Reactions: Allergies Allergy/AdvReac Type Severity Reaction Status Date / Time No Known Allergies Allergy Verified 10/16/17 07:38 - Medications Medications: Current Medications Aspirin (Ecotrin) 81 mg PO DAILY [facility] Last Admin: 10/18/17 08:18 Dose: 81 mg Atorvastatin Calcium (Lipitor) 40 mg PO HS [facility] Last Admin: 10/17/17 23:00 Dose: 40 mg Clopidogrel Bisulfate (Plavix) 75 mg PO DAILY [facility] Last Admin: 10/18/17 08:27 Dose: 75 mg Enalapril Maleate (Vasotec) 20 mg PO DAILY [facility] Last Admin: 10/18/17 08:27 Dose: 20 mg Enoxaparin Sodium (Lovenox) 40 mg SC HS [facility] PRN Reason: Protocol Last Admin: 10/17/17 23:00 Dose: 40 mg Glipizide (Glucotrol Xl) 10 mg PO BID [facility] Last Admin: 10/18/17 08:26 Dose: 10 mg Sodium Chloride (Sodium Chloride 0.9%) 1,000 mls @ 42 mls/hr IV .[id number] [facility] Stop: 10/18/17 11:10 Last Admin: 10/17/17 13:00 Dose: 42 mls/hr Levofloxacin/Dextrose (Levaquin 750mg) 750 mg in 150 mls @ 100 mls/hr IVPB DAILY [facility] PRN Reason: Protocol Last Admin: 10/18/17 08:36 Dose: 100 mls/hr Insulin Detemir (Levemir) 20 units SC HS [facility] Insulin Human Lispro (Humalog) 0 units SC ACHS [facility] PRN Reason: Protocol Last Admin: 10/18/17 06:43 Dose: 3 unit Sitagliptin Phosphate (Januvia) 50 mg PO DAILY [facility] Last Admin: 10/18/17 08:26 Dose: 50 mg Results - Vital Signs Recent Vital Signs: Last Vital Signs Temp 98.4 F 10/18/17 07:41 Pulse 73 10/18/17 09:00 Resp 18 10/18/17 07:41 BP 157/80 H 10/18/17 07:41 Pulse Ox 96 10/18/17 07:41 - Labs Result Diagrams: 10/18/17 05:30 10/18/17 05:30 Labs: Laboratory Results - last 24 hr 10/17/17 10/17/17 10/17/17 05:21 11:05 14:35 WBC RBC Hgb Hct MCV MCH MCHC RDW Plt Count Sodium Potassium Chloride Carbon Dioxide Anion Gap BUN Creatinine Est GFR ( Amer) Est GFR (Non-Af Amer) POC Glucose (mg/dL) 225 H 314 H Random Glucose Calcium Urine Color Straw Urine Clarity Clear Urine pH 6.0 Ur Specific [place] 1.015 Urine Protein Negative Urine Glucose (UA) >=500 Urine Ketones Negative Urine Blood Negative Urine Nitrate Negative Urine Bilirubin Negative Urine Urobilinogen 0.2-1.0 Ur Leukocyte Esterase Neg Urine RBC (Auto) < 1 Urine Microscopic WBC 1 Ur Squamous Epith Cells < 1 10/17/17 10/17/17 10/18/17 15:37 21:21 04:47 WBC RBC Hgb Hct MCV MCH MCHC RDW Plt Count Sodium Potassium Chloride Carbon Dioxide Anion Gap BUN Creatinine Est GFR ( Amer) Est GFR (Non-Af Amer) POC Glucose (mg/dL) 283 H 202 H 218 H Random Glucose Calcium Urine Color Urine Clarity Urine pH Ur Specific [place] Urine Protein Urine Glucose (UA) Urine Ketones Urine Blood Urine Nitrate Urine Bilirubin Urine Urobilinogen Ur Leukocyte Esterase Urine RBC (Auto) Urine Microscopic WBC Ur Squamous Epith Cells 10/18/17 10/18/17 05:30 05:30 WBC 9.9 RBC 4.38 L Hgb 13.2 Hct 38.3 MCV 87.4 MCH 30.0 MCHC 34.3 RDW 13.6 Plt Count 259 Sodium 138 Potassium 4.2 Chloride 98 Carbon Dioxide 25 Anion Gap 19 BUN 22 H Creatinine 1.3 Est GFR ( Amer) > 60 Est GFR (Non-Af Amer) 55 POC Glucose (mg/dL) Random Glucose 221 H Calcium 9.2 Urine Color Urine Clarity Urine pH Ur Specific [place] Urine Protein Urine Glucose (UA) Urine Ketones Urine Blood Urine Nitrate Urine Bilirubin Urine Urobilinogen Ur Leukocyte Esterase Urine RBC (Auto) Urine Microscopic WBC Ur Squamous Epith Cells
--- NOTE | 2017-10-18 12:08 | US ---
PROCEDURE: Ultrasound of the Kidneys HISTORY: CKD Elevated creatinine. COMPARISON: None available. TECHNIQUE: Sonogram of the kidneys. FINDINGS: RIGHT KIDNEY: Measures: 4.5 x 5.4 x 10.8 cm. Normal in size, contour and echogenicity. No stone, solid mass lesion or hydronephrosis visualized. LEFT KIDNEY: Measures: 4.2 x 5 x 11.4 cm. Normal in size, contour and echogenicity. No stone, solid mass lesion or hydronephrosis visualized. OTHER FINDINGS: None. IMPRESSION: Unremarkable renal sonogram.
--- NOTE | 2017-10-18 12:09 | US ---
PROCEDURE: Ultrasound of the Bladder HISTORY: gregoria on ckd COMPARISON: None available. TECHNIQUE: Sonographic evaluation of the bladder was performed. FINDINGS: Unremarkable without wall thickening or intraluminal debris. No calculus or gross mass lesion. No free fluid in pelvis. Prevoid Volume: 635.3 cc. Post void residual: 26.9 cc. Documentation of bilateral ureteral jets. IMPRESSION: Unremarkable sonogram of the bladder. Small postvoid residual.
--- NOTE | 2017-10-18 12:14 | US ---
HISTORY: epididymitis of right testicle, f/u TECHNIQUE: Realtime sonography through the scrotum with color and doppler flow. COMPARISON: 10/11/2017 FINDINGS: RIGHT TESTICLE: The entire findings in the right hemiscrotum are grossly abnormal. What is labeled as the right testicle on these images is more homogeneously hyperechoic than the comparison left testicle in the left hemiscrotum. There is flow in this labeled right testicle noted. What is labeled as the right testicle measures 2.4 x 1.3 x 1.5 cm in size. This is smaller in size compared to the measurement noted on the prior scrotal ultrasound study which measured the right testicle has 3.0 x 1.5 x 2.9 cm. The current echogenicity of the right testicle also appears slightly increased compared to what it was depicted as previously how much of this is technique is indeterminate. There is an interval 2.5 x 1.8 by 2.2 cm complex cystic collection with a large amount of solid like material within it the echogenic solid-appearing like material within it appears greater than the cystic component to it. No vascularity to the solid-appearing component is suggested. A complicated right hydrocele including an infected complex right hydrocele is a consideration. Based on these images no thick wall to would is suggested. This appearance is an interval change compared to the prior study. - urological consultation is strongly advised. RIGHT EPIDIDYMIS: Epididymal head appears abnormally prominent as well measuring 1.4 x 0.8 x 1.2 cm. Within the right epididymal head a 3 x 4 x 4 mm cyst is noted. The right epididymal head and a cyst here are fairly similar to the prior images The right epididymal body and tail of are grossly abnormal in appearance and a amorphous with increased vascularity here currently what is labeled as the right epididymal tail measures 3.0 x 2.0 by 2.0 cm. Previously this measured 2.8 x 2.4 by 2.4 cm. LEFT TESTICLE: Measures 3.1 x 1.3 x 1.9 cm cm. Normal echotexture and flow. LEFT EPIDIDYMIS: Epididymal head measures 0.9 x 0.5 x 0.7 cm. Grossly unremarkable appearance with normal flow. HYDROCELE: Please note the above findings regarding the findings in close proximity with the right testicle and in the right testicle Paragraph section above. VARICOCELE: None. OTHER FINDINGS: There is thickening of the right karlee scrotal sac IMPRESSION: The prior findings referenced as to right epididymitis which are very extensive involving the right epididymal head and body are similar in appearance on this exam. There is an interval complex cystic/ mostly solid right hemiscrotal intimately related collection noted which may be a complex hydrocele with extensive solid-appearing debris -however a non sterile right hemiscrotal collection also needs to be considered. Comments: The interval changes regarding the large complex cystic collection in the right karlee scrotal sac and the possibility that this is non sterile has been directly discussed with Nadia the nurse taking care this patient. As per our Nadia the nurse taking care of the patient, the patient is treated for epididymitis which is also suggested/ consistent with the findings on this exam and the patient is also being treated by an attending urologist, Dr. Kofi Barrera.
[2017-10-18] MEDS: Sodium Chloride 0.9% 1,000 ML IV SCH (15:14)
[2017-10-18] MEDS ORDERED: Sodium Chloride 0.9% 1,000 ML IV SCH (15:45)
[2017-10-18] MEDS: Insulin Detemir 100 Units/ml Inj SC SCH (22:04)
[2017-10-18] MEDS: Enoxaparin 40 mg Syringe SC SCH (22:04)
[2017-10-19 06:57] LABS: HEMOGLOBIN 13.2 g/dL (12.0-18.0); MEAN CELL VOLUME 87.4 fl (80.0-94.0); MEAN CORPUSCULAR HEMOGLOBIN 30.2 pg (27.0-31.0); MEAN CORPUSCULAR HGB CONC 34.6 g/dL (33.0-37.0); RBC 4.38 Mil/uL (4.40-5.90); RED CELL DISTRIBUTION WIDTH 13.6 % (11.5-14.5); WHITE BLOOD COUNT 9.4 K/uL (4.8-10.8)
[2017-10-19 07:01] LABS: BLOOD UREA NITROGEN 20 mg/dl (9-20); CALCIUM 9.2 mg/dL (8.4-10.2); GFR AFRICAN-AMERICAN > 60; GFR NON-AFRICAN AMERICAN > 60
[2017-10-19] MEDS: Insulin Lispro (humaLOG) 100 Units/ml Inj SC SCH ×4 (07:28→22:09)
[2017-10-19] MEDS: GlipiZIDE 10 mg SR Tab PO SCH ×2 (09:00→17:22)
--- NOTE | 2017-10-19 09:33 | CP.PCM.PN ---
Subjective - Date & Time of Evaluation Date of Evaluation: 10/19/17 Time of Evaluation: 08:40 - Subjective Subjective: Patient seen and examined at bedside this morning. No acute overnight events. States swelling and erythema of right testicle are getting better. Denies any night sweats, fever, chills, nausea, vomiting, abdominal pain, dysuria, chest pain, dyspnea or cough. Tolerating PO. Has normal BM and voiding regularly. Objective - Vital Signs/Intake and Output Vital Signs (last 24 hours): Temp Pulse Resp BP Pulse Ox 98.1 F 85 19 156/93 H 96 10/19/17 07:56 10/19/17 07:56 10/19/17 07:56 10/19/17 07:56 10/19/17 07:56 - Medications Medications: Current Medications Aspirin (Ecotrin) 81 mg PO DAILY [facility] Last Admin: 10/19/17 09:00 Dose: 81 mg Atorvastatin Calcium (Lipitor) 40 mg PO [facility] Last Admin: 10/18/17 22:04 Dose: 40 mg Clopidogrel Bisulfate (Plavix) 75 mg PO DAILY [facility] Last Admin: 10/19/17 09:00 Dose: 75 mg Enalapril Maleate (Vasotec) 20 mg PO DAILY [facility] Last Admin: 10/19/17 09:00 Dose: 20 mg Enoxaparin Sodium (Lovenox) 40 mg SC [facility] PRN Reason: Protocol Last Admin: 10/18/17 22:04 Dose: 40 mg Glipizide (Glucotrol Xl) 10 mg PO BID [facility] Last Admin: 10/19/17 09:00 Dose: 10 mg Levofloxacin/Dextrose (Levaquin 750mg) 750 mg in 150 mls @ 100 mls/hr IVPB DAILY [facility] PRN Reason: Protocol Last Admin: 10/18/17 08:36 Dose: 100 mls/hr Sodium Chloride (Sodium Chloride 0.9%) 1,000 mls @ 50 mls/hr IV .Q20H [facility] Stop: 10/19/17 15:44 Last Admin: 10/18/17 17:20 Dose: 50 mls/hr Insulin Detemir (Levemir) 20 units SC [facility] Last Admin: 10/18/17 22:04 Dose: 20 units Insulin Human Lispro (Humalog) 0 units SC [facility] PRN Reason: Protocol Last Admin: 10/19/17 07:28 Dose: 2 unit Sitagliptin Phosphate (Januvia) 50 mg PO DAILY [facility] Last Admin: 10/19/17 09:00 Dose: 50 mg - Labs Labs: 10/19/17 06:15 10/19/17 06:15 PT 12.8 Seconds (9.8-13.1) 10/16/17 08:10 INR 1.2 (0.9-1.2) 10/16/17 08:10 APTT 24.1 Seconds (25.6-37.1) L 10/16/17 08:10 - Additional Findings Additional findings: - Constitutional Appears: Non-toxic, No Acute Distress - Head Exam Head Exam: NORMAL INSPECTION - Eye Exam Eye Exam: EOMI, Normal appearance. - ENT Exam ENT Exam: Mucous Membranes Moist, Normal Oropharynx - Neck Exam Neck exam: Positive for: Normal Inspection. Negative for: Lymphadenopathy - Respiratory Exam Respiratory Exam: Clear to Auscultation Bilateral, NORMAL BREATHING PATTERN. absent: Rales, Rhonchi, Wheezes - Cardiovascular Exam Cardiovascular Exam: REGULAR RHYTHM, RRR, +S1, +S2 - GI/Abdominal Exam GI & Abdominal Exam: Normal Bowel Sounds, Soft. absent: Rebound, Tenderness - Exam Exam: NO Uretheral Discharge Additional comments: Uncircumcised. No penile discharge. Mild right scrotal swelling with hardness of right testicle (improving). - Extremities Exam Extremities exam: Positive for: normal inspection. Negative for: calf tenderness, pedal edema - Back Exam Back exam: absent: CVA tenderness (L), CVA tenderness (R) - Neurological Exam Neurological exam: Alert, Normal Gait, Oriented x3 - Psychiatric Exam Psychiatric exam: Normal Affect, Normal Mood - Skin Skin Exam: Dry, Warm Assessment and Plan - Assessment and Plan (Free Text) Assessment: 67 yo male with a pmhx of uncontrolled DMII and CKD stage 3 admitted for right epididymo-orchitis, uncontrolled DMII and acute kidney injury. Acute right epididymo-orchitis -Repeat testicles US on 10/18/17: impression: the prior findings referenced as to right epididymitis which are very extensive involving the right epididymal head and boday are similar in appearance on this exam. There is an interval complex cystic/mostly solid right hemiscrotal intimately related collection noted which may be complex hydrocele with extensive solid-appearing debris- however a non sterile right hemiscrotal collection also needs to be considered. -Leukocytosis with left shift on admission; leukocytosis is resolved. -Continue Levaquin 750 mg IVP daily (day 2) ( Received levaquin 500 mg po ) -Urology consult appreciated -d/w IR, IR recommends drainage of epididymal fluids/cyst. -F/U ID consult -F/U pelvis CT with IV contrast Uncontrolled DM II -FSG in ED 478. -Last HgbA1c 11 on 08/2017 -Increase Levemir to 20 units HS from 15 units and ISS medium dose -C/W Januvia 50 mg daily(Adjusted renal dose) and Glimeperide -Start metformin 500 mg po daily -Improving -Monitor Acute kidney injury on CKD Stage 3 -Elevated BUN/Creat (41/2.1) from baseline -Poss due to infection/dehydration -BUN/Cr: 22/1.2 -Improved -Continue NS at 42 cc/hr -Renal sono: unremarkable -bladder US: unremarkable -ESR 104 -F/U CHAD, complement level, Microalbumin -Nephrology consult appreciated. CAD -stable -c/w home medications HTN -Stable C/w home meds DVT prophylaxis -SCD's -Lovenox 40 mg SC Qhs Code status Full code
[2017-10-19] MEDS: levoFLOXacin 750 mg in D5W 750 MG/150 ML BAG IVPB SCH (11:46)
[2017-10-19] MEDS ORDERED: Iohexol 300 100 ML IJ ONE (12:31)
--- NOTE | 2017-10-19 14:20 | CT ---
PROCEDURE: CT pelvis HISTORY: right epididymo-orchitis/fluid collection COMPARISON: Ultrasound examination of the scrotum dated 10/17/2017 TECHNIQUE: 2.5 mm contiguous axial sections were acquired through the pelvis and scrotal sac. Sagittal and coronal images were reformatted from the axial scan. Contrast administered: 95 cc Omnipaque 300. Total exam DLP: 349.96 mGy-cm This CT exam was performed using 1 or more of the following dose reduction techniques: Automated exposure control, adjustment of the mA and/or kV according to patient size, and/or use of iterative reconstruction technique. FINDINGS: There is no pelvic mass or fluid collection identified. There is diverticulosis of the sigmoid colon. There is no evidence of diverticulitis. There are no other abnormal bowel loops identified. The appendix is unremarkable. The urinary bladder is unremarkable in appearance. The prostate is normal in appearance. There is no pelvic lymphadenopathy. Images through the scrotum demonstrate a complex right hemiscrotal collection. Evaluation by CT is grossly limited. There is some right-sided scrotal wall thickening. There is abnormal increased density of the fat around the right spermatic cord and vas deferens extending from the scrotum to the inguinal ring, consistent with vasitis. This is best demonstrated on series 601, images 27 through 33. This may represent an infectious process. The left spermatic cord/vas deferens is unremarkable. IMPRESSION: Complex right hemiscrotal collection, nonspecific. Correlate with ultrasound. Right vasitis. No evidence of pelvic abscess.
--- NOTE | 2017-10-19 20:50 | CP.PCM.PN ---
Subjective - Date & Time of Evaluation Date of Evaluation: 10/19/17 Time of Evaluation: 20:50 - Subjective Subjective: Discussed case with Dr Glover today,pt remains afibrile wbc has gone from 15 to 9k pt is not experiencing sig pain ct confrims loculated hydrocele,with addition finfing of cord inflamation as would be expected in epidinitis no pelvic abcess.Suggest pt coninue present antibiotics for at least 14 days. Elective hydrocelectomy can be booked if you wish once pt completes full course of antibiotics please adviseIlya Barrera Objective - Vital Signs/Intake and Output Vital Signs (last 24 hours): Temp Pulse Resp BP Pulse Ox 98.6 F 94 H 18 124/80 97 10/19/17 16:49 10/19/17 16:49 10/19/17 16:49 10/19/17 16:49 10/19/17 16:49 Intake and Output: 10/19/17 10/20/17 18:59 06:59 Intake Total 1000 Balance 1000 - Medications Medications: Current Medications Aspirin (Ecotrin) 81 mg PO DAILY [facility] Last Admin: 10/19/17 09:00 Dose: 81 mg Atorvastatin Calcium (Lipitor) 40 mg PO HS [facility] Last Admin: 10/18/17 22:04 Dose: 40 mg Clopidogrel Bisulfate (Plavix) 75 mg PO DAILY [facility] Last Admin: 10/19/17 09:00 Dose: 75 mg Enalapril Maleate (Vasotec) 20 mg PO DAILY [facility] Last Admin: 10/19/17 09:00 Dose: 20 mg Enoxaparin Sodium (Lovenox) 40 mg SC [facility] PRN Reason: Protocol Last Admin: 10/18/17 22:04 Dose: 40 mg Glipizide (Glucotrol Xl) 10 mg PO BID [facility] Last Admin: 10/19/17 17:22 Dose: 10 mg Levofloxacin/Dextrose (Levaquin 500mg) 500 mg in 100 mls @ 100 mls/hr IVPB BID [facility] PRN Reason: Protocol Insulin Detemir (Levemir) 20 units SC HS [facility] Last Admin: 10/18/17 22:04 Dose: 20 units Insulin Human Lispro (Humalog) 0 units SC [facility] PRN Reason: Protocol Last Admin: 10/19/17 17:22 Dose: 3 unit Metformin HCl (Glucophage) 500 mg PO [facility] Sitagliptin Phosphate (Januvia) 50 mg PO DAILY [facility] Last Admin: 10/19/17 09:00 Dose: 50 mg - Labs Labs: 10/19/17 06:15 10/19/17 06:15 PT 12.8 Seconds (9.8-13.1) 10/16/17 08:10 INR 1.2 (0.9-1.2) 10/16/17 08:10 APTT 24.1 Seconds (25.6-37.1) L 10/16/17 08:10
[2017-10-19] MEDS: Insulin Detemir 100 Units/ml Inj SC SCH (22:09)
[2017-10-20] MEDS: Insulin Lispro (humaLOG) 100 Units/ml Inj SC SCH ×5 (06:34→21:44)
[2017-10-20 06:35] LABS: HEMOGLOBIN 13.6 g/dL (12.0-18.0); MEAN CELL VOLUME 87.5 fl (80.0-94.0); MEAN CORPUSCULAR HGB CONC 34.2 g/dL (33.0-37.0); RBC 4.53 Mil/uL (4.40-5.90); RED CELL DISTRIBUTION WIDTH 13.9 % (11.5-14.5); WHITE BLOOD COUNT 11.3 K/uL (4.8-10.8)
--- NOTE | 2017-10-20 06:59 | CP.PCM.PN ---
Subjective - Date & Time of Evaluation Date of Evaluation: 10/20/17 Time of Evaluation: 07:45 - Subjective Subjective: Patient seen and examined this morning. No acute overnight events. Pt reports testicular pain and swelling are improving but still feels pain with movement. Denies any night sweats, fever, chills, nausea, vomiting, abdominal pain, dysuria, chest pain, dyspnea or cough. Tolerating PO. Has normal BM and voiding regularly. Objective - Vital Signs/Intake and Output Vital Signs (last 24 hours): Temp Pulse Resp BP Pulse Ox 98.6 F 85 18 143/88 98 10/20/17 00:10 10/20/17 00:10 10/20/17 00:10 10/20/17 00:10 10/20/17 00:10 Intake and Output: 10/19/17 10/20/17 18:59 06:59 Intake Total 1000 Balance 1000 - Medications Medications: Current Medications Aspirin (Ecotrin) 81 mg PO DAILY [facility] Last Admin: 10/19/17 09:00 Dose: 81 mg Atorvastatin Calcium (Lipitor) 40 mg PO [facility] Last Admin: 10/19/17 22:09 Dose: 40 mg Clopidogrel Bisulfate (Plavix) 75 mg PO DAILY [facility] Last Admin: 10/19/17 09:00 Dose: 75 mg Enalapril Maleate (Vasotec) 20 mg PO DAILY [facility] Last Admin: 10/19/17 09:00 Dose: 20 mg Enoxaparin Sodium (Lovenox) 40 mg SC [facility] PRN Reason: Protocol Last Admin: 10/18/17 22:04 Dose: 40 mg Glipizide (Glucotrol Xl) 10 mg PO BID [facility] Last Admin: 10/19/17 17:22 Dose: 10 mg Levofloxacin/Dextrose (Levaquin 500mg) 500 mg in 100 mls @ 100 mls/hr IVPB BID [facility] PRN Reason: Protocol Insulin Detemir (Levemir) 20 units SC HS [facility] Last Admin: 10/19/17 22:09 Dose: 20 units Insulin Human Lispro (Humalog) 0 units SC [facility] PRN Reason: Protocol Last Admin: 10/20/17 06:41 Dose: Not Given Metformin HCl (Glucophage) 500 mg PO K [facility] Sitagliptin Phosphate (Januvia) 50 mg PO DAILY [facility] Last Admin: 10/19/17 09:00 Dose: 50 mg - Labs Labs: 10/20/17 05:45 10/19/17 06:15 PT 12.8 Seconds (9.8-13.1) 10/16/17 08:10 INR 1.2 (0.9-1.2) 10/16/17 08:10 APTT 24.1 Seconds (25.6-37.1) L 10/16/17 08:10 - Additional Findings Additional findings: - Constitutional Appears: Non-toxic, No Acute Distress - Head Exam Head Exam: NORMAL INSPECTION - Eye Exam Eye Exam: EOMI, Normal appearance. - ENT Exam ENT Exam: Mucous Membranes Moist, Normal Oropharynx - Neck Exam Neck exam: Positive for: Normal Inspection. Negative for: Lymphadenopathy - Respiratory Exam Respiratory Exam: Clear to Auscultation Bilateral, NORMAL BREATHING PATTERN. absent: Rales, Rhonchi, Wheezes - Cardiovascular Exam Cardiovascular Exam: REGULAR RHYTHM, RRR, +S1, +S2 - GI/Abdominal Exam GI & Abdominal Exam: Normal Bowel Sounds, Soft. absent: Rebound, Tenderness - Exam Exam: NO Uretheral Discharge Additional comments: Uncircumcised. No penile discharge. Mild right scrotal swelling with hardness of right testicle (improving). Rectal exam: no hemorrhoids or anal fissure seen. Normal rectal tone. Normal prostate. No prostate tenderness or fluctuation. - Extremities Exam Extremities exam: Positive for: normal inspection. Negative for: calf tenderness, pedal edema - Back Exam Back exam: absent: CVA tenderness (L), CVA tenderness (R) - Neurological Exam Neurological exam: Alert, Normal Gait, Oriented x3 - Psychiatric Exam Psychiatric exam: Normal Affect, Normal Mood Assessment and Plan - Assessment and Plan (Free Text) Assessment: 67 yo male with a pmhx of uncontrolled DMII and CKD stage 3 admitted for right epididymo-orchitis, uncontrolled DMII and now resolved acute kidney injury. Acute right epididymo-orchitis -Repeat testicles US on 10/18/17: impression: the prior findings referenced as to right epididymitis which are very extensive involving the right epididymal head and boday are similar in appearance on this exam. There is an interval complex cystic/mostly solid right hemiscrotal intimately related collection noted which may be complex hydrocele with extensive solid-appearing debris- however a non sterile right hemiscrotal collection also needs to be considered. -Pelvis CT w/ IV contrast on 10/19/17: Impression: complex right hemiscrotal collection, nonspecific. Correlated with ultrasound. Right vasitis. No evidence of plevic abscess. -wbc: 11.3 today -Start Levaquin 500 mg IVP Q12 (Per ID) ( completed 750 mg IVP daily for 2 days , Received levaquin 500 mg po once ) -Urology consult appreciated -ID consult appreciated Uncontrolled DM II -FSG in ED 478. -Last HgbA1c 11.1 on 08/2017 -Continue Levemir 20 units HS and ISS medium dose -C/W Januvia 50 mg daily(Adjusted renal dose) and Glimeperide -Continue metformin 500 mg po daily -Improving -Monitor Acute kidney injury (resolved) -Elevated BUN/Creat (41/2.1) from baseline on admission -Poss due to infection/dehydration -BUN/Cr: 22/1.2 -Improved -Renal sono: unremarkable -bladder US: unremarkable -ESR 104 -Microalbumin/cr ratio: 11 -Total complement: >60 -F/U CHAD -Nephrology consult appreciated. CAD -stable -c/w home medications HTN -Stable C/w home meds DVT prophylaxis -SCD's -Lovenox 40 mg SC Qhs Code status Full code
[2017-10-20 07:10] LABS: INR 1.1 (0.9-1.2); PROTHROMBIN TIME 12.1 Seconds (9.8-13.1)
[2017-10-20] MEDS: GlipiZIDE 10 mg SR Tab PO SCH ×2 (08:12→17:57)
[2017-10-20] MEDS ORDERED: Chlorhexidine Gluconate 1 APPL/PKT TP ONE (11:52)
--- NOTE | 2017-10-20 12:27 | CP.PCM.CON ---
History of Present Illness - History of Present Illness History of Present Illness: 67 y/o male with a pmhx of uncontrolled IDDM, CKD, right epididymitis presented to ED with c/o profuse sweating this morning that lasted for 20-30 min. This morning pt denies any chest pain, palpitation, dyspnea, headache, dizziness, blurry vision, nausea, vomiting, focal weakness during sweating. Pt has hx right testicular pain, redness and swelling for 1 week and discharged from [facility] on 10/12/17 with levaquin 500 mg qd for 10 days. Pt reports his right testicular pain has improved by 50% but it is more hard and not painful anymore. This hardening is acute in onset from the past visit Past Patient History - Past Medical History & Family History Past Medical History?: Yes - Past Social History Smoking Status: Never Smoked - CARDIAC Hx Hypertension: Yes - PULMONARY Hx Respiratory Disorders: No - NEUROLOGICAL Hx Neurological Disorder: No - HEENT Hx HEENT Problems: No - RENAL Hx Chronic Kidney Disease: No - ENDOCRINE/METABOLIC Hx Endocrine Disorders: Yes - HEMATOLOGICAL/ONCOLOGICAL Hx Human Immunodeficiency Virus (HIV): No - INTEGUMENTARY Hx Dermatological Problems: No - MUSCULOSKELETAL/RHEUMATOLOGICAL Hx Falls: No - GASTROINTESTINAL Hx Gastrointestinal Disorders: No - GENITOURINARY/GYNECOLOGICAL Hx Genitourinary Disorders: No - PSYCHIATRIC Hx Psychophysiologic Disorder: No Hx Substance Use: No - SURGICAL HISTORY Hx Coronary Artery Bypass Graft: Yes Hx Coronary Stent: Yes (carotid) - ANESTHESIA Hx Anesthesia: Yes Hx Anesthesia Reactions: No Hx Malignant Hyperthermia: No Meds Allergies/Adverse Reactions: Allergies Allergy/AdvReac Type Severity Reaction Status Date / Time No Known Allergies Allergy Verified 10/16/17 07:38 - Medications Medications: Current Medications Aspirin (Ecotrin) 81 mg PO DAILY [facility] Last Admin: 10/19/17 09:00 Dose: 81 mg Atorvastatin Calcium (Lipitor) 40 mg PO HS [facility] Last Admin: 10/19/17 22:09 Dose: 40 mg Clopidogrel Bisulfate (Plavix) 75 mg PO DAILY [facility] Last Admin: 10/19/17 09:00 Dose: 75 mg Enalapril Maleate (Vasotec) 20 mg PO DAILY [facility] Last Admin: 10/20/17 08:12 Dose: 20 mg Enoxaparin Sodium (Lovenox) 40 mg SC [facility] PRN Reason: Protocol Last Admin: 10/18/17 22:04 Dose: 40 mg Glipizide (Glucotrol Xl) 10 mg PO BID [facility] Last Admin: 10/20/17 08:12 Dose: 10 mg Levofloxacin/Dextrose (Levaquin 500mg) 500 mg in 100 mls @ 100 mls/hr IVPB BID [facility] PRN Reason: Protocol Insulin Detemir (Levemir) 20 units SC HS [facility] Last Admin: 10/19/17 22:09 Dose: 20 units Insulin Human Lispro (Humalog) 0 units SC A[facility]S [facility] PRN Reason: Protocol Last Admin: 10/20/17 06:41 Dose: Not Given Metformin HCl (Glucophage) 500 mg PO BRK [facility] Last Admin: 10/20/17 08:12 Dose: 500 mg Sitagliptin Phosphate (Januvia) 50 mg PO DAILY [facility] Last Admin: 10/20/17 08:12 Dose: 50 mg Physical Exam - Exam Additional comments: right testicular swelling hard, non tender Results - Vital Signs Recent Vital Signs: Last Vital Signs Temp 98.1 F 10/20/17 08:38 Pulse 81 10/20/17 08:38 Resp 20 10/20/17 08:38 BP 135/81 10/20/17 08:38 Pulse Ox 95 10/20/17 08:38 - Labs Result Diagrams: 10/20/17 05:45 10/19/17 06:15 Labs: Laboratory Results - last 24 hr 10/18/17 10/19/17 10/19/17 11:07 15:57 21:24 WBC RBC Hgb Hct MCV MCH MCHC RDW Plt Count PT INR APTT POC Glucose (mg/dL) 228 H 136 H Tot Complement (CH50) >60 H 10/20/17 10/20/17 10/20/17 05:45 05:45 05:51 WBC 11.3 H RBC 4.53 Hgb 13.6 Hct 39.6 MCV 87.5 MCH 30.0 MCHC 34.2 RDW 13.9 Plt Count 296 PT 12.1 INR 1.1 APTT 27.0 POC Glucose (mg/dL) 173 H Tot Complement (CH50) 10/20/17 10:49 WBC RBC Hgb Hct MCV MCH MCHC RDW Plt Count PT INR APTT POC Glucose (mg/dL) 151 H Tot Complement (CH50) Assessment & Plan - Assessment and Plan (Free Text) Assessment: right epididymitis with fluid collection on CT pelvis that has now hardened. Hx of klebsiella infection in the past. According to nurse levaquin would be unaffordable by patient. Can switch to cipro 500mg po bid which has a good penetration for another 2 weeks
[2017-10-20] MEDS: levoFLOXacin 500 mg in D5W 500 MG/100 ML BAG IVPB SCH ×2 (13:38→19:04)
--- NOTE | 2017-10-20 14:20 | CP.PCM.PN ---
Subjective - Date & Time of Evaluation Date of Evaluation: 10/20/17 Time of Evaluation: 14:18 - Subjective Subjective: Nephrology Consultation Note Assessment: Stable Right epididymitis Acute Kidney Injury (N17.9) resolved Diabetic chronic Kidney Disease (E11.22) Hypertensive Chronic Kidney Disease (I12.9) Chronic Kidney Disease (N18.3) Stage 3 without proteinuria (R80.9) with baseline cr 1.3-1.5 since 2015 Plan No acute need for renal replacement therapy at this time. BELÉN resolved Hypertension control with meds as ordered. Patient On enalapril continue with the same Monitor Input/Output, daily weights and renal function with basic metabolic panel Agree with IV fluid Dose meds/antibiotics for GFR 50-60. Avoid fleets enema/magnesium based laxatives. Avoid nephrotoxins/NSAIDs Glycemic control Further work up for as per primary team Thanks for allowing me to participate in care of your patient. Will follow patient with you. Please call if any Qs Dr Garrick Mueller Office: [phone] Subjective: Noted events overnight. Patients feels okay. Denies chest pain, palpitation, shortness of breath, leg swelling. All other negative Physical Examination: General Appearance: Comfortable, in no acute respiratory distress, co-operative . Vitals reviewed and noted as below Head; Atraumatic, normocephalic ENT: no ulcers no thrush. Tongue is midline. Oropharynx: no rash or ulcers. EYES: Pupils are equal, round and reactive to light accommodation. Eye muscles and extraocular movement intact. Sclera is anicteric. Neck; supple no lymphadenopathy, no thyromegaly or bruit Lungs: Normal respiratory rate/effort. Breath sounds bilateral equal and clear Heart: Normal rate. s1s2 normal. No rub or gallop. Extremities: no edema. No varicose veins Neurological: Patient is alert, awake and oriented to person, place and time. No focal deficit. Strength bilateral appropriate and equal Skin: Warm and dry. Normal turgor. No rash. Palpitation: Normal elasticity for age Abdomen: Abdomen is soft. Bowel sounds +. There is no abdominal tenderness, no guarding/rigidity no organomegaly Psych: normal insight and normal affect/mood MSK: no joint tenderness or swelling. Digits and nails normal, no deformity : kidney or bladder not palpable. Rt scrtal redness and tenderness Labs/imaging reviewed. Past medical history, past surgical history, family history, social history, allergy reviewed and noted as below Family hx: no hx of CKD. Rest non-contributory Objective - Vital Signs/Intake and Output Vital Signs (last 24 hours): Temp Pulse Resp BP Pulse Ox 98.1 F 81 20 135/81 95 10/20/17 08:38 10/20/17 08:38 10/20/17 08:38 10/20/17 08:38 10/20/17 08:38 - Medications Medications: Current Medications Aspirin (Ecotrin) 81 mg PO DAILY [facility] Last Admin: 10/20/17 13:43 Dose: 81 mg Atorvastatin Calcium (Lipitor) 40 mg PO HS [facility] Last Admin: 10/19/17 22:09 Dose: 40 mg Clopidogrel Bisulfate (Plavix) 75 mg PO DAILY [facility] Last Admin: 10/20/17 13:43 Dose: 75 mg Enalapril Maleate (Vasotec) 20 mg PO DAILY [facility] Last Admin: 10/20/17 08:12 Dose: 20 mg Enoxaparin Sodium (Lovenox) 40 mg SC [facility] PRN Reason: Protocol Last Admin: 10/18/17 22:04 Dose: 40 mg Glipizide (Glucotrol Xl) 10 mg PO BID [facility] Last Admin: 10/20/17 08:12 Dose: 10 mg Levofloxacin/Dextrose (Levaquin 500mg) 500 mg in 100 mls @ 100 mls/hr IVPB BID [facility] PRN Reason: Protocol Last Admin: 10/20/17 13:38 Dose: 100 mls/hr Insulin Detemir (Levemir) 20 units SC HS [facility] Last Admin: 10/19/17 22:09 Dose: 20 units Insulin Human Lispro (Humalog) 0 units SC ACHS [facility] PRN Reason: Protocol Last Admin: 10/20/17 12:41 Dose: 2 unit Metformin HCl (Glucophage) 500 mg PO BRK [facility] Last Admin: 10/20/17 08:12 Dose: 500 mg Sitagliptin Phosphate (Januvia) 50 mg PO DAILY [facility] Last Admin: 10/20/17 08:12 Dose: 50 mg - Labs Labs: 10/20/17 05:45 10/19/17 06:15 PT 12.1 Seconds (9.8-13.1) 10/20/17 05:45 INR 1.1 (0.9-1.2) 10/20/17 05:45 APTT 27.0 Seconds (25.6-37.1) 10/20/17 05:45
--- NOTE | 2017-10-20 14:43 | CP.PCM.PN ---
Subjective - Date & Time of Evaluation Date of Evaluation: 10/20/17 Time of Evaluation: 14:41 - Subjective Subjective: Pt examined chart reviewed ok to discharge on Levaquin pt should follow up next week in our officeDiscussed with Resident. and attending. Holly Objective - Vital Signs/Intake and Output Vital Signs (last 24 hours): Temp Pulse Resp BP Pulse Ox 98.1 F 81 20 135/81 95 10/20/17 08:38 10/20/17 08:38 10/20/17 08:38 10/20/17 08:38 10/20/17 08:38 - Medications Medications: Current Medications Aspirin (Ecotrin) 81 mg PO DAILY [facility] Last Admin: 10/20/17 13:43 Dose: 81 mg Atorvastatin Calcium (Lipitor) 40 mg PO HS [facility] Last Admin: 10/19/17 22:09 Dose: 40 mg Clopidogrel Bisulfate (Plavix) 75 mg PO DAILY [facility] Last Admin: 10/20/17 13:43 Dose: 75 mg Enalapril Maleate (Vasotec) 20 mg PO DAILY [facility] Last Admin: 10/20/17 08:12 Dose: 20 mg Enoxaparin Sodium (Lovenox) 40 mg SC HS [facility] PRN Reason: Protocol Last Admin: 10/18/17 22:04 Dose: 40 mg Glipizide (Glucotrol Xl) 10 mg PO BID [facility] Last Admin: 10/20/17 08:12 Dose: 10 mg Levofloxacin/Dextrose (Levaquin 500mg) 500 mg in 100 mls @ 100 mls/hr IVPB BID [facility] PRN Reason: Protocol Last Admin: 10/20/17 13:38 Dose: 100 mls/hr Insulin Detemir (Levemir) 20 units SC HS [facility] Last Admin: 10/19/17 22:09 Dose: 20 units Insulin Human Lispro (Humalog) 0 units SC ACHS [facility] PRN Reason: Protocol Last Admin: 10/20/17 12:41 Dose: 2 unit Metformin HCl (Glucophage) 500 mg PO BRK [facility] Last Admin: 10/20/17 08:12 Dose: 500 mg Sitagliptin Phosphate (Januvia) 50 mg PO DAILY [facility] Last Admin: 10/20/17 08:12 Dose: 50 mg - Labs Labs: 10/20/17 05:45 10/19/17 06:15 PT 12.1 Seconds (9.8-13.1) 10/20/17 05:45 INR 1.1 (0.9-1.2) 10/20/17 05:45 APTT 27.0 Seconds (25.6-37.1) 10/20/17 05:45
[2017-10-20 20:33] LABS: BETA-HYDROXYBUTYRIC ACID None Detected
[2017-10-20] MEDS: Insulin Detemir 100 Units/ml Inj SC SCH (21:43)
[2017-10-21] MEDS: Insulin Lispro (humaLOG) 100 Units/ml Inj SC SCH ×4 (07:09→21:51)
--- NOTE | 2017-10-21 07:18 | CP.PCM.PN ---
Subjective - Date & Time of Evaluation Date of Evaluation: 10/21/17 Time of Evaluation: 07:45 - Subjective Subjective: Patient seen and examined at bedside today. No acute overnight events. States pain, swelling and redness of right testicle are improving. Slept well. Denies any night sweats, fever, chills, nausea, vomiting, abdominal pain, dysuria, chest pain, dyspnea or cough. Tolerating PO. Has normal BM and voiding regularly. Objective - Vital Signs/Intake and Output Vital Signs (last 24 hours): Temp Pulse Resp BP Pulse Ox 98.1 F 93 H 18 108/69 95 10/21/17 00:00 10/21/17 00:00 10/21/17 00:00 10/21/17 00:00 10/21/17 00:00 - Medications Medications: Current Medications Aspirin (Ecotrin) 81 mg PO DAILY [facility] Last Admin: 10/20/17 13:43 Dose: 81 mg Atorvastatin Calcium (Lipitor) 40 mg PO HS [facility] Last Admin: 10/20/17 21:43 Dose: 40 mg Clopidogrel Bisulfate (Plavix) 75 mg PO DAILY [facility] Last Admin: 10/20/17 13:43 Dose: 75 mg Enalapril Maleate (Vasotec) 20 mg PO DAILY [facility] Last Admin: 10/20/17 08:12 Dose: 20 mg Enoxaparin Sodium (Lovenox) 40 mg SC [facility] PRN Reason: Protocol Last Admin: 10/18/17 22:04 Dose: 40 mg Glipizide (Glucotrol Xl) 10 mg PO BID [facility] Last Admin: 10/20/17 17:57 Dose: 10 mg Levofloxacin/Dextrose (Levaquin 500mg) 1,000 mg in 200 mls @ 100 mls/hr IVPB DAILY [facility] PRN Reason: Protocol Insulin Detemir (Levemir) 20 units SC HS [facility] Last Admin: 10/20/17 21:43 Dose: 20 units Insulin Human Lispro (Humalog) 0 units SC [facility] PRN Reason: Protocol Last Admin: 10/21/17 07:09 Dose: Not Given Metformin HCl (Glucophage) 500 mg PO BRK [facility] Last Admin: 10/20/17 08:12 Dose: 500 mg Sitagliptin Phosphate (Januvia) 50 mg PO DAILY [facility] Last Admin: 10/20/17 08:12 Dose: 50 mg - Labs Labs: 10/20/17 05:45 10/19/17 06:15 PT 12.1 Seconds (9.8-13.1) 10/20/17 05:45 INR 1.1 (0.9-1.2) 10/20/17 05:45 APTT 27.0 Seconds (25.6-37.1) 10/20/17 05:45 - Constitutional Appears: No Acute Distress - Head Exam Head Exam: NORMAL INSPECTION - ENT Exam ENT Exam: Mucous Membranes Moist, Normal Oropharynx - Respiratory Exam Respiratory Exam: Clear to Ausculation Bilateral, NORMAL BREATHING PATTERN. absent: Rales, Rhonchi, Wheezes, Respiratory Distress - Cardiovascular Exam Cardiovascular Exam: REGULAR RHYTHM, RRR, +S1, +S2 - GI/Abdominal Exam GI & Abdominal Exam: Soft, Normal Bowel Sounds. absent: Tenderness, Rebound - Exam Additional comments: Uncircumcised. No penile discharge. Mild right scrotal swelling and erythema with hardness of right testicle, clinically unchanged. - Extremities Exam Extremities Exam: Normal Inspection. absent: Pedal Edema - Neurological Exam Neurological Exam: Alert, Awake, Oriented x3 - Psychiatric Exam Psychiatric exam: Normal Affect, Normal Mood Assessment and Plan - Assessment and Plan (Free Text) Assessment: 67 yo male with a pmhx of uncontrolled DMII and CKD stage 3 admitted for right epididymo-orchitis, uncontrolled DMII and now resolved acute kidney injury. Acute right epididymo-orchitis -Repeat testicles US on 10/18/17: impression: the prior findings referenced as to right epididymitis which are very extensive involving the right epididymal head and boday are similar in appearance on this exam. There is an interval complex cystic/mostly solid right hemiscrotal intimately related collection noted which may be complex hydrocele with extensive solid-appearing debris- however a non sterile right hemiscrotal collection also needs to be considered. -Pelvis CT w/ IV contrast on 10/19/17: Impression: complex right hemiscrotal collection, nonspecific. Correlated with ultrasound. Right vasitis. No evidence of plevic abscess. -Leukocytosis trending up (15.0 today) -Start Levaquin 1000 mg IVP qdaily (Per ID: day 1 today ( yesterday received 500 mg bid) (total levaquin day 5 today) -Urology consult appreciated -ID consult appreciated Uncontrolled DM II -FSG in ED 478. -Last HgbA1c 11.1 on 08/2017 -Continue Levemir 20 units HS and ISS medium dose -C/W Januvia 50 mg daily(Adjusted renal dose) and Glimeperide -Continue metformin 500 mg po daily -Improving -Monitor Acute kidney injury -Elevated BUN/Creat (41/2.1) from baseline on admission -Poss due to infection/dehydration -BUN/Cr: 34/2.0 this morning. -Start NS @100cc/hr -Renal sono: unremarkable -bladder US: unremarkable -ESR 104 -Microalbumin/cr ratio: 11 -Total complement: >60 -F/U CHAD -Nephrology consult appreciated. CAD -stable -c/w home medications HTN -Stable C/w home meds DVT prophylaxis -SCD's -Lovenox 40 mg SC Qhs Code status Full code
[2017-10-21] MEDS: GlipiZIDE 10 mg SR Tab PO SCH ×2 (08:51→17:17)
[2017-10-21 09:02] LABS: HEMOGLOBIN 13.9 g/dL (12.0-18.0); MEAN CELL VOLUME 86.4 fl (80.0-94.0); MEAN CORPUSCULAR HEMOGLOBIN 30.4 pg (27.0-31.0); MEAN CORPUSCULAR HGB CONC 35.2 g/dL (33.0-37.0); RBC 4.57 Mil/uL (4.40-5.90); RED CELL DISTRIBUTION WIDTH 13.5 % (11.5-14.5)
[2017-10-21 09:22] LABS: CALCIUM 9.3 mg/dL (8.4-10.2)
[2017-10-21] MEDS: LEVOFLOXACIN IVPB SCH (09:33)
[2017-10-21] MEDS: D5W IVPB SCH (09:33)
--- NOTE | 2017-10-21 09:37 | CP.PCM.CON ---
History of Present Illness - History of Present Illness History of Present Illness: _Pt was not seen by me for renal consult because I was not notified Past Patient History - Past Medical History & Family History Past Medical History?: Yes - Past Social History Smoking Status: Never Smoked - CARDIAC Hx Hypertension: Yes - PULMONARY Hx Respiratory Disorders: No - NEUROLOGICAL Hx Neurological Disorder: No - HEENT Hx HEENT Problems: No - RENAL Hx Chronic Kidney Disease: No - ENDOCRINE/METABOLIC Hx Endocrine Disorders: Yes - HEMATOLOGICAL/ONCOLOGICAL Hx Human Immunodeficiency Virus (HIV): No - INTEGUMENTARY Hx Dermatological Problems: No - MUSCULOSKELETAL/RHEUMATOLOGICAL Hx Falls: No - GASTROINTESTINAL Hx Gastrointestinal Disorders: No - GENITOURINARY/GYNECOLOGICAL Hx Genitourinary Disorders: No - PSYCHIATRIC Hx Psychophysiologic Disorder: No Hx Substance Use: No - SURGICAL HISTORY Hx Coronary Artery Bypass Graft: Yes Hx Coronary Stent: Yes (carotid) - ANESTHESIA Hx Anesthesia: Yes Hx Anesthesia Reactions: No Hx Malignant Hyperthermia: No Meds Allergies/Adverse Reactions: Allergies Allergy/AdvReac Type Severity Reaction Status Date / Time No Known Allergies Allergy Verified 10/16/17 07:38 - Medications Medications: Current Medications Aspirin (Ecotrin) 81 mg PO DAILY [facility] Last Admin: 10/21/17 08:51 Dose: 81 mg Atorvastatin Calcium (Lipitor) 40 mg PO HS [facility] Last Admin: 10/20/17 21:43 Dose: 40 mg Clopidogrel Bisulfate (Plavix) 75 mg PO DAILY [facility] Last Admin: 10/21/17 08:51 Dose: 75 mg Enalapril Maleate (Vasotec) 20 mg PO DAILY [facility] Last Admin: 10/21/17 08:51 Dose: 20 mg Enoxaparin Sodium (Lovenox) 40 mg SC [facility] PRN Reason: Protocol Last Admin: 10/18/17 22:04 Dose: 40 mg Glipizide (Glucotrol Xl) 10 mg PO BID [facility] Last Admin: 10/21/17 08:51 Dose: 10 mg Levofloxacin/Dextrose (Levaquin 500mg) 1,000 mg in 200 mls @ 100 mls/hr IVPB DAILY [facility] PRN Reason: Protocol Insulin Detemir (Levemir) 20 units SC [facility] Last Admin: 10/20/17 21:43 Dose: 20 units Insulin Human Lispro (Humalog) 0 units SC [facility] PRN Reason: Protocol Last Admin: 10/21/17 07:09 Dose: Not Given Metformin HCl (Glucophage) 500 mg PO BRK [facility] Last Admin: 10/21/17 08:51 Dose: 500 mg Sitagliptin Phosphate (Januvia) 50 mg PO DAILY [facility] Last Admin: 10/21/17 08:51 Dose: 50 mg Results - Vital Signs Recent Vital Signs: Last Vital Signs Temp 97.9 F 10/21/17 08:23 Pulse 94 H 10/21/17 08:23 Resp 20 10/21/17 08:23 BP 120/78 10/21/17 08:23 Pulse Ox 97 10/21/17 08:23 - Labs Result Diagrams: 10/21/17 06:30 10/21/17 06:30 Labs: Laboratory Results - last 24 hr 10/16/17 10/17/17 10/17/17 15:44 20:45 20:50 WBC RBC Hgb Hct MCV MCH MCHC RDW Plt Count Sodium Potassium Chloride Carbon Dioxide Anion Gap BUN Creatinine Est GFR ( Amer) Est GFR (Non-Af Amer) POC Glucose (mg/dL) Random Glucose Calcium Beta-Hydroxybutyric Acd None detected Ur Random Creatinine 58 Urine Creatinine 56 Urine Total Volume 0.7 Urine Microalbumin 0.8 Microalb/Creat Ratio 11 13 10/20/17 10/20/17 10/20/17 10:49 15:57 21:27 WBC RBC Hgb Hct MCV MCH MCHC RDW Plt Count Sodium Potassium Chloride Carbon Dioxide Anion Gap BUN Creatinine Est GFR ( Amer) Est GFR (Non-Af Amer) POC Glucose (mg/dL) 151 H 203 H 101 Random Glucose Calcium Beta-Hydroxybutyric Acd Ur Random Creatinine Urine Creatinine Urine Total Volume Urine Microalbumin Microalb/Creat Ratio 10/21/17 10/21/17 10/21/17 05:31 06:30 06:30 WBC 15.0 H RBC 4.57 Hgb 13.9 Hct 39.5 MCV 86.4 MCH 30.4 MCHC 35.2 RDW 13.5 Plt Count 330 Sodium 135 Potassium 4.4 Chloride 93 L Carbon Dioxide 26 Anion Gap 20 BUN 34 H Creatinine 2.0 H Est GFR ( Amer) 41 Est GFR (Non-Af Amer) 34 POC Glucose (mg/dL) 93 Random Glucose 137 H Calcium 9.3 Beta-Hydroxybutyric Acd Ur Random Creatinine Urine Creatinine Urine Total Volume Urine Microalbumin Microalb/Creat Ratio Assessment & Plan - Assessment and Plan (Free Text) Assessment: Rhabdomyolysis Plan: Please see
[2017-10-21] MEDS: Sodium Chloride 0.9% 1,000 ML IV SCH ×2 (12:04→21:37)
--- NOTE | 2017-10-21 12:50 | CP.PCM.PN ---
Subjective - Date & Time of Evaluation Date of Evaluation: 10/21/17 Time of Evaluation: 12:47 - Subjective Subjective: PT remains afibrile,wbc rising clinically unchanged,pts antibiotics have been adjusted. A epidimitisP if wbc keeps rising despite antibiotic adjustment pt may need surgery on this admission. Holly Objective - Vital Signs/Intake and Output Vital Signs (last 24 hours): Temp Pulse Resp BP Pulse Ox 97.9 F 94 H 20 120/78 97 10/21/17 08:23 10/21/17 08:23 10/21/17 08:23 10/21/17 08:23 10/21/17 08:23 - Medications Medications: Current Medications Aspirin (Ecotrin) 81 mg PO DAILY [facility] Last Admin: 10/21/17 08:51 Dose: 81 mg Atorvastatin Calcium (Lipitor) 40 mg PO HS [facility] Last Admin: 10/20/17 21:43 Dose: 40 mg Clopidogrel Bisulfate (Plavix) 75 mg PO DAILY [facility] Last Admin: 10/21/17 08:51 Dose: 75 mg Enalapril Maleate (Vasotec) 20 mg PO DAILY [facility] Last Admin: 10/21/17 08:51 Dose: 20 mg Enoxaparin Sodium (Lovenox) 40 mg SC HS [facility] PRN Reason: Protocol Last Admin: 10/18/17 22:04 Dose: 40 mg Glipizide (Glucotrol Xl) 10 mg PO BID [facility] Last Admin: 10/21/17 08:51 Dose: 10 mg Levofloxacin/Dextrose (Levaquin 500mg) 1,000 mg in 200 mls @ 100 mls/hr IVPB DAILY [facility] PRN Reason: Protocol Last Admin: 10/21/17 09:33 Dose: 100 mls/hr Sodium Chloride (Sodium Chloride 0.9%) 1,000 mls @ 100 mls/hr IV .Q10H [facility] Stop: 10/22/17 10:32 Last Admin: 10/21/17 12:04 Dose: 100 mls/hr Insulin Detemir (Levemir) 20 units SC HS [facility] Last Admin: 10/20/17 21:43 Dose: 20 units Insulin Human Lispro (Humalog) 0 units SC [facility] PRN Reason: Protocol Last Admin: 10/21/17 12:02 Dose: 2 unit Metformin HCl (Glucophage) 500 mg PO BRK [facility] Last Admin: 10/21/17 08:51 Dose: 500 mg Sitagliptin Phosphate (Januvia) 50 mg PO DAILY [facility] Last Admin: 10/21/17 08:51 Dose: 50 mg - Labs Labs: 10/21/17 06:30 10/21/17 06:30 PT 12.1 Seconds (9.8-13.1) 10/20/17 05:45 INR 1.1 (0.9-1.2) 10/20/17 05:45 APTT 27.0 Seconds (25.6-37.1) 10/20/17 05:45
--- NOTE | 2017-10-21 14:33 | CP.PCM.PN ---
Subjective - Date & Time of Evaluation Date of Evaluation: 10/21/17 Time of Evaluation: 09:20 - Subjective Subjective: Assessment: Stable Right epididymitis Acute Kidney Injury (N17.9) resolved Diabetic chronic Kidney Disease (E11.22) Hypertensive Chronic Kidney Disease (I12.9) Chronic Kidney Disease (N18.3) Stage 3 without proteinuria (R80.9) with baseline cr 1.3-1.5 since 2015 Plan No acute need for renal replacement therapy at this time. BELÉN resolved Hypertension control with meds as ordered. Pt was restarted on high dose enalapril - will discontinue. give belén episodes on barb-i would suggest renal aa doppler f/u gu Subjective: seen and examined denie n/v Physical Examination: General Appearance: Comfortable, in no acute respiratory distress, co-operative . Vitals reviewed and noted as below Head; Atraumatic, normocephalic ENT: no ulcers no thrush. Tongue is midline. Oropharynx: no rash or ulcers. EYES: Pupils are equal, round and reactive to light accommodation. Eye muscles and extraocular movement intact. Sclera is anicteric. Neck; supple no lymphadenopathy, no thyromegaly or bruit Lungs: Normal respiratory rate/effort. Breath sounds bilateral equal and clear Heart: Normal rate. s1s2 normal. No rub or gallop. Extremities: no edema. No varicose veins Neurological: Patient is alert, awake and oriented to person, place and time. No focal deficit. Strength bilateral appropriate and equal Skin: Warm and dry. Normal turgor. No rash. Palpitation: Normal elasticity for age Abdomen: Abdomen is soft. Bowel sounds +. There is no abdominal tenderness, no guarding/rigidity no organomegaly Psych: normal insight and normal affect/mood MSK: no joint tenderness or swelling. Digits and nails normal, no deformity : kidney or bladder not palpable. Rt scrotal redness and tenderness Labs/imaging reviewed. Past medical history, past surgical history, family history, social history, allergy reviewed and noted as below Family hx: no hx of CKD. Rest non-contributory Objective - Vital Signs/Intake and Output Vital Signs (last 24 hours): Temp Pulse Resp BP Pulse Ox 97.9 F 94 H 20 120/78 97 10/21/17 08:23 10/21/17 08:23 10/21/17 08:23 10/21/17 08:23 10/21/17 08:23 - Medications Medications: Current Medications Aspirin (Ecotrin) 81 mg PO DAILY [facility] Last Admin: 10/21/17 08:51 Dose: 81 mg Atorvastatin Calcium (Lipitor) 40 mg PO HS [facility] Last Admin: 10/20/17 21:43 Dose: 40 mg Clopidogrel Bisulfate (Plavix) 75 mg PO DAILY [facility] Last Admin: 10/21/17 08:51 Dose: 75 mg Enalapril Maleate (Vasotec) 20 mg PO DAILY [facility] Last Admin: 10/21/17 08:51 Dose: 20 mg Enoxaparin Sodium (Lovenox) 40 mg SC HS [facility] PRN Reason: Protocol Last Admin: 10/18/17 22:04 Dose: 40 mg Glipizide (Glucotrol Xl) 10 mg PO BID [facility] Last Admin: 10/21/17 08:51 Dose: 10 mg Levofloxacin/Dextrose (Levaquin 500mg) 1,000 mg in 200 mls @ 100 mls/hr IVPB DAILY [facility] PRN Reason: Protocol Last Admin: 10/21/17 09:33 Dose: 100 mls/hr Sodium Chloride (Sodium Chloride 0.9%) 1,000 mls @ 100 mls/hr IV .Q10H [facility] Stop: 10/22/17 10:32 Last Admin: 10/21/17 12:04 Dose: 100 mls/hr Insulin Detemir (Levemir) 20 units SC HS [facility] Last Admin: 10/20/17 21:43 Dose: 20 units Insulin Human Lispro (Humalog) 0 units SC [facility] PRN Reason: Protocol Last Admin: 10/21/17 12:02 Dose: 2 unit Metformin HCl (Glucophage) 500 mg PO BRK [facility] Last Admin: 10/21/17 08:51 Dose: 500 mg Sitagliptin Phosphate (Januvia) 50 mg PO DAILY [facility] Last Admin: 10/21/17 08:51 Dose: 50 mg - Labs Labs: 10/21/17 06:30 10/21/17 06:30 PT 12.1 Seconds (9.8-13.1) 10/20/17 05:45 INR 1.1 (0.9-1.2) 10/20/17 05:45 APTT 27.0 Seconds (25.6-37.1) 10/20/17 05:45
[2017-10-21] MEDS: Enoxaparin 40 mg Syringe SC SCH (21:38)
[2017-10-21] MEDS: Insulin Detemir 100 Units/ml Inj SC SCH (21:46)
[2017-10-22 06:21] LABS: SQUAMOUS EPITHIAL < 1 /hpf (0-5); URINE BILIRUBIN NEGATIVE (NEGATIVE); URINE BLOOD NEGATIVE (NEGATIVE); URINE CLARITY CLEAR (Clear); URINE COLOR STRAW (YELLOW); URINE GLUCOSE (UA) NEG (Normal); URINE LEUKOCYTE ESTERASE NEG Leu/uL (Negative); URINE PROTEIN NEGATIVE (NEGATIVE); URINE UROBILINOGEN 0.2-1.0 mg/dL (0.2-1.0)
--- NOTE | 2017-10-22 06:26 | CP.PCM.PN ---
Subjective - Date & Time of Evaluation Date of Evaluation: 10/22/17 Time of Evaluation: 06:45 - Subjective Subjective: Pt seen and examined at bedside. Denies any overnight problems or complaints. States testicular pain and swelling have been steadily improving. Voiding without concern. Denies fevers/chills, n/v/d, chest pain, SOB, dyspnea, cough, abdominal pain, hematuria, or dysuria. Objective - Vital Signs/Intake and Output Vital Signs (last 24 hours): Temp Pulse Resp BP Pulse Ox 98.4 F 86 20 116/76 97 10/21/17 23:24 10/21/17 23:24 10/21/17 23:24 10/21/17 23:24 10/21/17 23:24 - Medications Medications: Current Medications Aspirin (Ecotrin) 81 mg PO DAILY [facility] Last Admin: 10/21/17 08:51 Dose: 81 mg Atorvastatin Calcium (Lipitor) 40 mg PO HS [facility] Last Admin: 10/21/17 21:37 Dose: 40 mg Clopidogrel Bisulfate (Plavix) 75 mg PO DAILY [facility] Last Admin: 10/21/17 08:51 Dose: 75 mg Enoxaparin Sodium (Lovenox) 40 mg SC [facility] PRN Reason: Protocol Last Admin: 10/21/17 21:38 Dose: 40 mg Glipizide (Glucotrol Xl) 10 mg PO BID [facility] Last Admin: 10/21/17 17:17 Dose: 10 mg Levofloxacin/Dextrose (Levaquin 500mg) 1,000 mg in 200 mls @ 100 mls/hr IVPB DAILY [facility] PRN Reason: Protocol Last Admin: 10/21/17 09:33 Dose: 100 mls/hr Sodium Chloride (Sodium Chloride 0.9%) 1,000 mls @ 100 mls/hr IV .Q10H [facility] Stop: 10/22/17 10:32 Last Admin: 10/21/17 21:37 Dose: 100 mls/hr Insulin Detemir (Levemir) 20 units SC [facility] Last Admin: 10/21/17 21:46 Dose: 20 units Insulin Human Lispro (Humalog) 0 units SC [facility] PRN Reason: Protocol Last Admin: 10/21/17 21:51 Dose: Not Given Metformin HCl (Glucophage) 500 mg PO BRK [facility] Last Admin: 05/19/18 08:51 Dose: 500 mg Sitagliptin Phosphate (Januvia) 50 mg PO DAILY [facility] Last Admin: 10/21/17 08:51 Dose: 50 mg - Labs Labs: 10/21/17 06:30 10/21/17 06:30 PT 12.1 Seconds (9.8-13.1) 10/20/17 05:45 INR 1.1 (0.9-1.2) 10/20/17 05:45 APTT 27.0 Seconds (25.6-37.1) 10/20/17 05:45 - Additional Findings Additional findings: - Constitutional Appears: No Acute Distress - ENT Exam ENT Exam: Mucous Membranes Moist, Normal Oropharynx - Respiratory Exam Respiratory Exam: Clear to Ausculation Bilateral, NORMAL BREATHING PATTERN. absent: Rales, Rhonchi, Wheezes, Respiratory Distress - Cardiovascular Exam Cardiovascular Exam: REGULAR RHYTHM, RRR, +S1, +S2 - GI/Abdominal Exam GI & Abdominal Exam: Soft, Normal Bowel Sounds. absent: Tenderness, Rebound - Exam Additional comments: Uncircumcised. No penile discharge. Mild right scrotal swelling and erythema with hardness of right testicle, clinically unchanged. - Extremities Exam Extremities Exam: Normal Inspection. absent: Pedal Edema - Neurological Exam Neurological Exam: Alert, Awake, Oriented x3 Assessment and Plan - Assessment and Plan (Free Text) Assessment: 67 yo M w PMHx of uncontrolled DM2, CKD stage 3 admitted for right epididymo- orchitis, uncontrolled DM2, and now resolved acute kidney injury. 1) Acute right epididymo-orchitis -Testicles US (10/18 repeat): Prior findings referenced as to right epididymitis which are very extensive involving the right epididymal head and boday are similar in appearance on this exam. There is an interval complex cystic/mostly solid right hemiscrotal intimately related collection noted which may be complex hydrocele with extensive solid-appearing debris-however a non sterile right hemiscrotal collection also needs to be considered. -Pelvis CT w/ IV contrast (10/19): Impression: complex right hemiscrotal collection, nonspecific. Correlated with ultrasound. Right vasitis. No evidence of plevic abscess. -Leukocytosis -Levaquin 1000 mg IVP qdaily (Per ID: day 2 of 5 today) -f/u ID recommendations -f/u Nephro recommendations -f/u Urology recommendations 2) Acute kidney injury -Somewhat improved from previous day following IVF administration. -Elevated BUN/Cr from admission baseline; Infection VS Dehydration -Renal sono: unremarkable -bladder US: unremarkable -BUN/Cr (10/22): 33/1.8 -GFR (10/22): 38 -Yesterday, initiated NS @ 100cc/hr -f/u Nephro recommendations -f/u Renal Duplex, as per Nephro -f/u BMP 3) Uncontrolled DM II -Present control improving -Last HgbA1c 11.1 on 08/2017 -c/w Levemir 20 units HS and ISS medium dose -c/w Januvia 50 mg Daily(Adjusted renal dose) and Glimeperide -c/w Metformin 500 mg PO Daily -f/u FS ACHS 4) CAD -Stable; c/w home medications 5) HTN -Stable; c/w home meds 6) DVT prophylaxis -SCDs -Lovenox 40 mg SC HS 7) Code status -Full code
[2017-10-22] MEDS: Sodium Chloride 0.9% 1,000 ML IV SCH (07:22)
[2017-10-22 07:40] LABS: BASO # 0.1 K/uL (0.0-0.2); BASO % 0.7 % (0.0-2.0); EOS # 0.3 K/uL (0.0-0.7); EOS % 2.8 % (0.0-4.0); HEMOGLOBIN 12.6 g/dL (12.0-18.0); LYMPH # 1.7 K/uL (1.0-4.3); LYMPH % 17.2 % (20.0-40.0); MEAN CELL VOLUME 87.2 fl (80.0-94.0); MEAN CORPUSCULAR HEMOGLOBIN 30.2 pg (27.0-31.0); MEAN CORPUSCULAR HGB CONC 34.6 g/dL (33.0-37.0); MEAN PLATELET VOLUME 7.5 fl (7.2-11.7); MONO # 0.6 K/uL (0.0-0.8); MONO % 6.1 % (0.0-10.0); NEUT # 7.4 K/uL (1.8-7.0); NEUT % 73.2 % (50.0-75.0); RBC 4.16 Mil/uL (4.40-5.90); RED CELL DISTRIBUTION WIDTH 13.6 % (11.5-14.5); WHITE BLOOD COUNT 10.2 K/uL (4.8-10.8)
[2017-10-22 07:42] LABS: CALCIUM 8.8 mg/dL (8.4-10.2)
[2017-10-22] MEDS: Insulin Lispro (humaLOG) 100 Units/ml Inj SC SCH ×4 (08:09→21:47)
[2017-10-22] MEDS: GlipiZIDE 10 mg SR Tab PO SCH ×2 (09:12→17:21)
[2017-10-22] MEDS: LEVOFLOXACIN IVPB SCH (09:13)
[2017-10-22] MEDS: D5W IVPB SCH (09:13)
[2017-10-22] MEDS: Enoxaparin 40 mg Syringe SC SCH (21:45)
[2017-10-22] MEDS: Insulin Detemir 100 Units/ml Inj SC SCH (21:46)
[2017-10-22 23:54] VITALS: RESP 20
[2017-10-23 07:42] VITALS: BP 122/73; PULSE 81; TEMP 98.5; O2SAT 97
[2017-10-23] MEDS: Insulin Lispro (humaLOG) 100 Units/ml Inj SC SCH ×2 (08:12→12:54)
[2017-10-23] MEDS: D5W IVPB SCH (08:13)
[2017-10-23] MEDS: LEVOFLOXACIN IVPB SCH (08:13)
--- NOTE | 2017-10-23 08:22 | CON ---
DATE: 10/17/2017 TIME: At approximately 10:37. REASON FOR CONSULTATION: Left epididymitis. HISTORY OF PRESENT ILLNESS: The patient was admitted to the [facility]. He has a history of hypertension and diabetes, and he presented to ER because of generalized weakness today. He has a history of being here last week for epididymitis and was on fluoroquinolone as an outpatient. He denies any fever or chills at home. He is a known diabetic and denies any increase in testicular swelling. REVIEW OF SYSTEMS: RESPIRATORY: The patient has no shortness of breath or no wheeze. HEART: The patient has normal sinus rhythm. No evidence of cardiomegaly. ABDOMEN: Soft and nontender. There are no masses or organomegaly. There are no hernias. Bladder is not palpably distended. GENITOURINARY: Testicles, the patient has an indurated swollen right testicle, which is less swollen and less tender than the previous week's exam. The patient has no longer has any significant erythema of the skin. Penis is normal. RECTAL: Shows a +2 to +3 non-nodular prostate without induration. EXTREMITIES: Normal. NEUROLOGIC: Normal. INTEGUMENT: Normal. PHYSICAL EXAMINATION: VITAL SIGNS: The patient is afebrile. HEAD, EARS, EYES, NOSE, AND THROAT: Within normal limits. NECK: Supple. There are no bruits, nodes, or masses. CHEST: Clear bilaterally. There are no rales or rhonchi. HEART: Normal sinus rhythm. ABDOMEN: Soft and nontender. Bladder is not palpably distended. GENITALIA: Right testicle was smaller than last week, but is still enlarged and indurated, but not significantly tender. Left testicle is normal. IMPRESSION AND PLAN: Resolving epididymitis. I have also reviewed the patient's ultrasound of last week consistent likely hydrocele and his white count, which is 9.9. I suggest simply continuing on antibiotics as per sensitivity and the patient should be continued on antibiotics for at least 14 days. If the patient becomes febrile, the epididymitis becomes worse, scrotal exploration and hydrocelectomy and possible epididymectomy can be consider, but this can be done on an elective basis unless the patient is febrile. Kofi Barrera MD
--- NOTE | 2017-10-23 09:11 | CP.PCM.PN ---
Objective - Vital Signs/Intake and Output Vital Signs (last 24 hours): Temp Pulse Resp BP Pulse Ox 98.5 F 81 20 122/73 97 10/23/17 07:41 10/23/17 07:41 10/23/17 07:41 10/23/17 07:41 10/23/17 07:41 - Medications Medications: Current Medications Aspirin (Ecotrin) 81 mg PO DAILY [facility] Last Admin: 10/22/17 09:11 Dose: 81 mg Atorvastatin Calcium (Lipitor) 40 mg PO HS [facility] Last Admin: 10/22/17 21:46 Dose: 40 mg Clopidogrel Bisulfate (Plavix) 75 mg PO DAILY [facility] Last Admin: 10/22/17 09:14 Dose: 75 mg Enalapril Maleate (Vasotec) 20 mg PO DAILY [facility] Enoxaparin Sodium (Lovenox) 40 mg SC [facility] PRN Reason: Protocol Last Admin: 10/22/17 21:45 Dose: 40 mg Glipizide (Glucotrol Xl) 10 mg PO BID [facility] Last Admin: 10/22/17 17:21 Dose: 10 mg Levofloxacin/Dextrose (Levaquin 500mg) 1,000 mg in 200 mls @ 100 mls/hr IVPB DAILY [facility] PRN Reason: Protocol Last Admin: 10/23/17 08:13 Dose: 100 mls/hr Insulin Detemir (Levemir) 20 units SC HS [facility] Last Admin: 10/22/17 21:46 Dose: 20 units Insulin Human Lispro (Humalog) 0 units SC [facility]CLUDE 234 BEDS AT [facility] PRN Reason: Protocol Last Admin: 10/23/17 08:12 Dose: Not Given Metformin HCl (Glucophage) 500 mg PO BRK [facility] Last Admin: 10/22/17 09:11 Dose: 500 mg Sitagliptin Phosphate (Januvia) 50 mg PO DAILY [facility] Last Admin: 10/22/17 09:12 Dose: 50 mg - Labs Labs: 10/22/17 06:00 10/22/17 06:00 PT 12.1 Seconds (9.8-13.1) 10/20/17 05:45 INR 1.1 (0.9-1.2) 10/20/17 05:45 APTT 27.0 Seconds (25.6-37.1) 10/20/17 05:45
--- NOTE | 2017-10-23 09:29 | CP.PCM.PN ---
Subjective - Date & Time of Evaluation Date of Evaluation: 10/23/17 Time of Evaluation: 09:27 - Subjective Subjective: RENAL FOLLOW UP Assessment: Stable Right epididymitis Acute Kidney Injury (N17.9) resolved Diabetic chronic Kidney Disease (E11.22) Hypertensive Chronic Kidney Disease (I12.9) Chronic Kidney Disease (N18.3) Stage 3 without proteinuria (R80.9) with baseline cr 1.3-1.5 since 2015 Plan No acute need for renal replacement therapy at this time. BELÉN resolving Hypertension control with meds as ordered. recommend hold barb-inhibitor f/u gu Subjective: seen and examined states pain well controlled Physical Examination: General Appearance: Comfortable, in no acute respiratory distress, co-operative . Vitals reviewed and noted as below Head; Atraumatic, normocephalic ENT: no ulcers no thrush. Tongue is midline. Oropharynx: no rash or ulcers. EYES: Pupils are equal, round and reactive to light accommodation. Eye muscles and extraocular movement intact. Sclera is anicteric. Neck; supple no lymphadenopathy, no thyromegaly or bruit Lungs: Normal respiratory rate/effort. Breath sounds bilateral equal and clear Heart: Normal rate. s1s2 normal. No rub or gallop. Extremities: no edema. No varicose veins Neurological: Patient is alert, awake and oriented to person, place and time. No focal deficit. Strength bilateral appropriate and equal Skin: Warm and dry. Normal turgor. No rash. Palpitation: Normal elasticity for age Abdomen: Abdomen is soft. Bowel sounds +. There is no abdominal tenderness, no guarding/rigidity no organomegaly Psych: normal insight and normal affect/mood MSK: no joint tenderness or swelling. Digits and nails normal, no deformity : bladder not palpable Labs/imaging reviewed. Past medical history, past surgical history, family history, social history, allergy reviewed and noted as below Family hx: no hx of CKD. Rest non-contributory Objective - Vital Signs/Intake and Output Vital Signs (last 24 hours): Temp Pulse Resp BP Pulse Ox 98.5 F 81 20 122/73 97 10/23/17 07:41 10/23/17 07:41 10/23/17 07:41 10/23/17 07:41 10/23/17 07:41 - Medications Medications: Current Medications Aspirin (Ecotrin) 81 mg PO DAILY [facility] Last Admin: 10/22/17 09:11 Dose: 81 mg Atorvastatin Calcium (Lipitor) 40 mg PO HS [facility] Last Admin: 10/22/17 21:46 Dose: 40 mg Clopidogrel Bisulfate (Plavix) 75 mg PO DAILY [facility] Last Admin: 10/22/17 09:14 Dose: 75 mg Enalapril Maleate (Vasotec) 20 mg PO DAILY [facility] Enoxaparin Sodium (Lovenox) 40 mg SC HS [facility] PRN Reason: Protocol Last Admin: 10/22/17 21:45 Dose: 40 mg Glipizide (Glucotrol Xl) 10 mg PO BID [facility] Last Admin: 10/22/17 17:21 Dose: 10 mg Levofloxacin/Dextrose (Levaquin 500mg) 1,000 mg in 200 mls @ 100 mls/hr IVPB DAILY [facility] PRN Reason: Protocol Last Admin: 10/23/17 08:13 Dose: 100 mls/hr Insulin Detemir (Levemir) 20 units SC HS [facility] Last Admin: 10/22/17 21:46 Dose: 20 units Insulin Human Lispro (Humalog) [address] [facility] PRN Reason: Protocol Last Admin: 10/23/17 08:12 Dose: Not Given Metformin HCl (Glucophage) 500 mg PO BRK [facility] Last Admin: 10/22/17 09:11 Dose: 500 mg Sitagliptin Phosphate (Januvia) 50 mg PO DAILY [facility] Last Admin: 10/22/17 09:12 Dose: 50 mg - Labs Labs: 10/22/17 06:00 10/22/17 06:00 PT 12.1 Seconds (9.8-13.1) 10/20/17 05:45 INR 1.1 (0.9-1.2) 10/20/17 05:45 APTT 27.0 Seconds (25.6-37.1) 10/20/17 05:45
--- NOTE | 2017-10-23 10:50 | US ---
PROCEDURE: Ultrasound of the Kidneys HISTORY: episodes of BELÉN while on ACEi COMPARISON: None available. TECHNIQUE: Sonogram of the kidneys. FINDINGS: RIGHT KIDNEY: Measures: 10.4 x 4.6 x 5.7 cm. Normal size and contour although echogenic renal cortical parenchyma may indicate an element of intrinsic medical renal disease. No stone, solid mass lesion or hydronephrosis visualized. LEFT KIDNEY: Measures: 10.5 x 4.8 x 4.7 cm. Normal size and contour although echogenic renal cortical parenchyma may indicate an element of intrinsic medical renal disease. No stone, solid mass lesion or hydronephrosis visualized. OTHER FINDINGS: The abdominal aorta peak systolic velocity measures 92.8 centimeters/second. The main right renal artery measures 177.6, 134.3 and 70.4 cm/sec proximal mid and distal segments, respectively. The main left renal artery measures 145.9, 139.9 and 82.2 cm/second through this same segments, respectively. The renal artery aortic ratio is 1.9 at the right and 1.6 at the left. There is no spectral evidence to suggest renal artery stenosis bilaterally. IMPRESSION: Findings may indicate intrinsic medical renal disease. No spectral evidence to suggest renal artery stenosis bilaterally.
[2017-10-23] MEDS: GlipiZIDE 10 mg SR Tab PO SCH (11:01)
--- NOTE | 2017-10-23 11:20 | CP.PCM.DIS ---
Provider - Provider Date of Admission: 10/16/17 12:01 Attending physician: Stefanie Us MD Consults: Terrazzo Roller Dr. Dagmar Byrne Urologist Dr. Barrera Time Spent in preparation of Discharge (in minutes): 30 Diagnosis - Discharge Diagnosis (1) Acute epididymitis Status: Acute (2) Acute kidney injury Status: Resolved (3) Uncontrolled diabetes mellitus Status: Chronic (4) Coronary artery disease Status: Chronic Hospital Course - Lab Results Lab Results: Micro Results 10/17/17 14:35 Urine,Clean Catch Urine Culture - Final No Growth (<1,000 CFU/ML) Most Recent Lab Values WBC 10.2 K/uL (4.8-10.8) 10/22/17 06:00 RBC 4.16 Mil/uL (4.40-5.90) L 10/22/17 06:00 Hgb 12.6 g/dL (12.0-18.0) 10/22/17 06:00 Hct 36.3 % (35.0-51.0) 10/22/17 06:00 MCV 87.2 fl (80.0-94.0) 10/22/17 06:00 MCH 30.2 pg (27.0-31.0) 10/22/17 06:00 MCHC 34.6 g/dL (33.0-37.0) 10/22/17 06:00 RDW 13.6 % (11.5-14.5) 10/22/17 06:00 Plt Count 273 K/uL (130-400) 10/22/17 06:00 MPV 7.5 fl (7.2-11.7) 10/22/17 06:00 Neut % (Auto) 73.2 % (50.0-75.0) 10/22/17 06:00 Lymph % (Auto) 17.2 % (20.0-40.0) L 10/22/17 06:00 Shoshone % (Auto) 6.1 % (0.0-10.0) 10/22/17 06:00 Eos % (Auto) 2.8 % (0.0-4.0) 10/22/17 06:00 Baso % (Auto) 0.7 % (0.0-2.0) 10/22/17 06:00 Neut # (Auto) 7.4 K/uL (1.8-7.0) H 10/22/17 06:00 Lymph # (Auto) 1.7 K/uL (1.0-4.3) 10/22/17 06:00 Shoshone # (Auto) 0.6 K/uL (0.0-0.8) 10/22/17 06:00 Eos # (Auto) 0.3 K/uL (0.0-0.7) 10/22/17 06:00 Baso # (Auto) 0.1 K/uL (0.0-0.2) 10/22/17 06:00 Neutrophils % (Manual) 76 % (42-75) H 10/16/17 08:10 Lymphocytes % (Manual) 11 % (20-50) L 10/16/17 08:10 Monocytes % (Manual) 9 % (0-10) 10/16/17 08:10 Eosinophils % (Manual) 4 % (0-7) 10/16/17 08:10 Platelet Estimate Normal (NORMAL) 10/16/17 08:10 RBC Morphology Normal (NORMAL) 10/16/17 08:10 ESR 104 mm/hr (0-20) H 10/18/17 10:09 PT 12.1 Seconds (9.8-13.1) 10/20/17 05:45 INR 1.1 (0.9-1.2) 10/20/17 05:45 APTT 27.0 Seconds (25.6-37.1) 10/20/17 05:45 pO2 27 mm/Hg (30-55) L 10/16/17 08:05 VBG pH 7.31 (7.32-7.43) L 10/16/17 08:05 VBG pCO2 54 mmHg (40-60) 10/16/17 08:05 VBG HCO3 23.5 mmol/L 10/16/17 08:05 VBG Total CO2 28.9 mmol/L (22-28) H 10/16/17 08:05 VBG O2 Sat (Calc) 52.9 % (40-65) 10/16/17 08:05 VBG Base Excess -0.1 mmol/L (0.0-2.0) L 10/16/17 08:05 VBG Potassium 5.5 mmol/L (3.6-5.2) H 10/16/17 08:05 Sodium 128.0 mmol/L (132-148) L 10/16/17 08:05 Chloride 90.0 mmol/L (98-107) L 10/16/17 08:05 Glucose 611 mg/dL (75-110) H* D 10/16/17 08:05 Lactate 1.9 mmol/L (0.7-2.1) 10/16/17 08:05 FiO2 21.0 % 10/16/17 08:05 Crit Value Called To Naima orellana md 10/16/17 08:05 Crit Value Called By 15 10/16/17 08:05 Crit Value Read Back Y 10/16/17 08:05 Blood Gas Notified Time 908 10/16/17 08:05 Sodium 139 mmol/l (132-148) 10/22/17 06:00 Potassium 4.7 MMOL/L (3.6-5.0) 10/22/17 06:00 Chloride 100 mmol/L (98-107) 10/22/17 06:00 Carbon Dioxide 26 mmol/L (22-30) 10/22/17 06:00 Anion Gap 18 (10-20) 10/22/17 06:00 BUN 33 mg/dl (9-20) H 10/22/17 06:00 Creatinine 1.8 mg/dl (0.8-1.5) H 10/22/17 06:00 Est GFR ( Amer) 46 10/22/17 06:00 Est GFR (Non-Af Amer) 38 10/22/17 06:00 POC Glucose (mg/dL) 106 mg/dL (65-110) 10/23/17 10:45 Random Glucose 90 mg/dL (75-110) 10/22/17 06:00 Hemoglobin A1c 11.1 % (4.2-6.5) H 10/19/17 06:15 Calcium 8.8 mg/dL (8.4-10.2) 10/22/17 06:00 Total Bilirubin 0.4 mg/dl (0.2-1.3) 10/17/17 08:48 AST 33 U/L (17-59) 10/17/17 08:48 ALT 39 U/L (21-72) 10/17/17 08:48 Alkaline Phosphatase 74 U/L (38-126) 10/17/17 08:48 Troponin I < 0.0120 ng/mL (0.00-0.120) 10/16/17 15:44 Total Protein 7.0 G/DL (6.3-8.2) 10/17/17 08:48 Albumin 3.4 g/dL (3.5-5.0) L 10/17/17 08:48 Globulin 3.7 gm/dL (2.2-3.9) 10/17/17 08:48 Albumin/Globulin Ratio 0.9 (1.0-2.1) L 10/17/17 08:48 Beta-Hydroxybutyric Acd None detected mcg/mL 10/16/17 15:44 Procalcitonin 0.08 NG/ML (0.19-0.49) L 10/16/17 15:44 Venous Blood Potassium 5.5 mmol/L (3.6-5.2) H 10/16/17 08:05 Urine Color Straw (YELLOW) 10/22/17 06:15 Urine Clarity Clear (Clear) 10/22/17 06:15 Urine pH 6.0 (5.0-8.0) 10/22/17 06:15 Ur Specific Roscoe 1.009 (1.003-1.030) 10/22/17 06:15 Urine Protein Negative mg/dL (NEGATIVE) 10/22/17 06:15 Urine Glucose (UA) Neg mg/dL (Normal) 10/22/17 06:15 Urine Ketones Negative mg/dL (NEGATIVE) 10/22/17 06:15 Urine Blood Negative (NEGATIVE) 10/22/17 06:15 Urine Nitrate Negative (NEGATIVE) 10/22/17 06:15 Urine Bilirubin Negative (NEGATIVE) 10/22/17 06:15 Urine Urobilinogen 0.2-1.0 mg/dL (0.2-1.0) 10/22/17 06:15 Ur Leukocyte Esterase Neg Leonor/uL (Negative) 10/22/17 06:15 Urine RBC (Auto) 1 /hpf (0-3) 10/22/17 06:15 Urine Microscopic WBC < 1 /hpf (0-5) 10/22/17 06:15 Ur Squamous Epith Cells < 1 /hpf (0-5) 10/22/17 06:15 Hyaline Casts 0-2 /hpf (0-2) 10/16/17 08:10 Ur Random Creatinine 58 mg/dL (20-370) 10/17/17 20:45 Urine Creatinine 56 mg/dL (20-370) 10/17/17 20:50 Urine Total Volume 0.7 mg/dL 10/17/17 20:45 Urine Microalbumin 0.8 mg/dL 10/17/17 20:50 Microalb/Creat Ratio 13 (<30) 10/17/17 20:50 CHAD Nuclear Membr Pat Negative (Negative) 10/18/17 10:09 Tot Complement (CH50) >60 U/mL (31-60) H 10/18/17 11:07 - Hospital Course Hospital Course: 67 y/o male with a pmhx of uncontrolled IDDM, CKD, right epididymitis admitted on 09/16/17 for acute epididymitis that failed multiple outpatient treatment and hyperglycemia. Pt was on IV Levofloxacin while in the hospital. Urology and ID were involved during pt's stay. Pt's symptoms of right testicular swelling and erythema improved but hardness of the testicle still persists. Both ID and urology agree pt can be discharged home with Levofloxacin 750 mg PO daily for 14 days. Pt was advised to f/u with urologist Dr. Fishman within 1 week (pt has Dr Fishman's card to make appointment). Terra[facility] Roller was also involved due to BELÉN. Pt's renal US showed no renal artery stenosis. Terrazzo Roller Dr. Leavitt recommended only a low dose of SEBAS inhibitor (enalapril 5 mg) due to his recurrent BELÉN. Pt is medically stable to discharge with the following medications. Medications on discharge: Levaquin 750 mg po daily for 14 days Enalapril Maleate [Vasotec] 5 mg PO DAILY #30 tab Insulin Detemir [Levemir] 20 units SC HS #1 vial metFORMIN [glucOPHAGE] 500 mg PO BID #60 tab Metoprolol Succinate [Toprol XL] 25 mg PO DAILY #30 tab SITagliptin [Januvia] 50 mg PO DAILY #30 tab Aspirin 81mg po daily Atorvastatin 40 mg po daily Plavix 75 mg po daily Discharge Exam - Head Exam Head Exam: NORMAL INSPECTION - Eye Exam Eye Exam: Normal appearance - ENT Exam ENT Exam: Mucous Membranes Moist - Respiratory Exam Respiratory Exam: Clear to PA & Lateral, NORMAL BREATHING PATTERN. absent: Rales, Rhonchi, Wheezes - Cardiovascular Exam Cardiovascular Exam: REGULAR RHYTHM, RRR, +S1, +S2 - GI/Abdominal Exam GI & Abdominal Exam: Normal Bowel Sounds, Soft. absent: Tenderness - Exam Additional comments: Uncircumcised. No penile discharge. Mild improved right scrotal swelling and erythema with hardness of right testicle - Extremities Exam Extremities exam: normal inspection - Neurological Exam Neurological exam: Alert, Oriented x3 - Psychiatric Exam Psychiatric exam: Normal Affect, Normal Mood - Skin Skin Exam: Normal Color Discharge Plan - Discharge Medications Prescriptions: Enalapril Maleate [Vasotec] 5 mg PO DAILY #30 tab Insulin Detemir [Levemir] 20 units SC HS #1 vial Levofloxacin [Levaquin] 750 mg PO DAILY 14 Days #14 tablet metFORMIN [glucOPHAGE] 500 mg PO BID #60 tab Metoprolol Succinate [Toprol XL] 25 mg PO DAILY #30 tab SITagliptin [Januvia] 50 mg PO DAILY #30 tab - Follow Up Plan Condition: STABLE Disposition: HOME/ ROUTINE Instructions: Epididymitis (DC) Additional Instructions: Please follow up with Dr. Nunes on October 27, 2017 at 3:40 pm at [facility]. Referrals: [facility] [place] [Outside] Kofi Barrera Jr., MD [Staff Provider] - Stefanie Us MD [Staff Provider] -
--- NOTE | 2017-10-23 17:36 | CP.PCM.PCO ---
Assessment & Plan - Assessment and Plan (Free Text) Assessment: Spoke with Dr Leavitt -keep pt on low dose vasotec only Spoke with ID - Levaquin 500mg daily x 2weeks Spoke with pt Agrebimal able to repeat plan back to me Conside surgery in 2weeks or sooner if sx worsen
== END 2017-10-23 15:34 | disposition home or self-care (01) | DRG 638 ==
LOC: H.ER 07:27 → H.ERHOLD 12:01 → H.TEL 18:49 → H.MEDSURG1 10-18 15:20
PROVIDERS: ADMIT Family Medicine Geriatric Medicine; ATTEND Family Medicine Geriatric Medicine
DX: E11.65 Type 2 diabetes mellitus with hyperglycemia (principal); M62.82 Rhabdomyolysis; N17.9 Acute kidney failure, unspecified; N45.3 Epididymo-orchitis; Z79.02 Long term (current) use of antithrombotics/antiplatelets; Z79.4 Long term (current) use of insulin; Z79.82 Long term (current) use of aspirin; Z79.899 Other long term (current) drug therapy; Z95.1 Presence of aortocoronary bypass graft; Z95.5 Presence of coronary angioplasty implant and graft; R61 Generalized hyperhidrosis; D72.829 Elevated white blood cell count, unspecified; E11.22 Type 2 diabetes mellitus with diabetic chronic kidney disease; I12.9 Hypertensive chronic kidney disease with stage 1 through stage 4 chronic kidney disease, or unspecified chronic kidney disease; I25.10 Atherosclerotic heart disease of native coronary artery without angina pectoris; N18.3 Chronic kidney disease, stage 3 (moderate); N43.3 Hydrocele, unspecified

== ENCOUNTER 2018-05-31 15:09 | Emergency (ER) | payer OTHER ==
[2018-05-31 15:09] VITALS: BMI 28.2
[2018-05-31 15:20] VITALS: TEMP 98.3
--- NOTE | 2018-05-31 16:47 | ED PDOC ---
Lower Extremity Pain/Injury Time Seen by Provider: 05/31/18 15:29 Chief Complaint (Nursing): Lower Extremity Problem/Injury Chief Complaint (Provider): Lower Extremity Problem/Injury History Per: Patient History/Exam Limitations: no limitations Current Symptoms Are (Timing): Still Present Additional Complaint(s): 68 y/o male presents to the ED for evaluation for head injury. Patient works as a sales planner in [employer] where he slipped and fell hitting his head. Otherwise, patient denies loss of consciousness, headaches, and neck pain. He was offered Tylenol but declined. PMD; non provided Past Medical History Reviewed: Historical Data, Nursing Documentation, Vital Signs Vital Signs: Last Vital Signs Temp 98.3 F 05/31/18 15:17 Pulse 79 05/31/18 15:17 Resp 16 05/31/18 15:17 BP 160/83 H 05/31/18 15:17 Pulse Ox 96 05/31/18 15:17 - Medical History PMH: CAD, Diabetes, HTN Denies: HIV, Chronic Kidney Disease - Surgical History Surgical History: CABG, Coronary Stent (carotid) - Family History Family History: States: Unknown Family Hx - Home Medications Home Medications: Ambulatory Orders Medication Instructions Recorded Aspirin [Ecotrin] 81 mg PO DAILY 09/07/17 Atorvastatin [Lipitor] 40 mg PO HS 09/07/17 Clopidogrel [Plavix] 75 mg PO DAILY 09/07/17 Ginkgo Biloba Duc[place]ne Extract [Ginkgo 1 cap PO DAILY 09/07/17 Biloba] Enalapril Maleate [Vasotec] 5 mg PO DAILY #30 tab 10/23/17 Insulin Detemir [Levemir] 20 units SC HS #1 vial 10/23/17 Levofloxacin [Levaquin] 750 mg PO DAILY 14 Days #14 tablet 10/23/17 Metoprolol Succinate XL [Toprol XL] 25 mg PO DAILY #30 tab 10/23/17 SITagliptin [Januvia] 50 mg PO DAILY #30 tab 10/23/17 metFORMIN [glucOPHAGE] 500 mg PO BID #60 tab 10/23/17 - Allergies Allergies/Adverse Reactions: Allergies Allergy/AdvReac Type Severity Reaction Status Date / Time No Known Allergies Allergy Verified 05/31/18 15:17 Review of Systems ROS Statement: Except As Marked, All Systems Reviewed And Found Negative Musculoskeletal: Negative for: Neck Pain Neurological: Negative for: Headache, Dizziness Physical Exam - Reviewed Nursing Documentation Reviewed: Yes Vital Signs Reviewed: Yes - Physical Exam Appears: Positive for: Well, No Acute Distress Head Exam: Positive for: ATRAUMATIC, NORMAL INSPECTION, NORMOCEPHALIC Skin: Positive for: Normal Color, Warm, Dry Eye Exam: Positive for: EOMI, Normal appearance, PERRL ENT: Positive for: Normal ENT Inspection Neck: Positive for: Normal Cardiovascular/Chest: Positive for: Regular Rate, Rhythm. Negative for: Murmur Respiratory: Positive for: Normal Breath Sounds Extremity: Positive for: Normal ROM Neurologic/Psych: Positive for: Alert, Oriented (x3) - ECG O2 Sat by Pulse Oximetry: 96 (RA) Pulse Ox Interpretation: Normal Medical Decision Making Medical Decision Making: Time:16:22 -CT head w/o Contrast 18:10 CT Head FINDINGS: HEMORRHAGE: No intracranial hemorrhage. BRAIN: No mass effect or edema. Mild, subtle microvascular ischemic changes. No appreciable cortical atrophy. VENTRICLES: Unremarkable. No hydrocephalus. CALVARIUM: Unremarkable. PARANASAL SINUSES: Chronic ethmoid and left frontal sinus disease, mild in degree. MASTOID AIR CELLS: Unremarkable as visualized. No inflammatory changes. OTHER FINDINGS: None. IMPRESSION: No acute intracranial abnormalities. No significant findings to account for the clinical presentation. __- Scribe Attestation: Documented by Fe Garrett , acting as a scribe for Yakelin Moss. Provider Scribe Attestation: All medical record entries made by the Scribe were at my direction and personally dictated by me. I have reviewed the chart and agree that the record accurately reflects my personal performance of the history, physical exam, medical decision making, and the department course for this patient. I have also personally directed, reviewed, and agree with the discharge instructions and disposition. Disposition - Clinical Impression Clinical Impression: Head injury - Patient ED Disposition Is Patient to be Admitted: No - Disposition Disposition: Routine/Home Disposition Time: 18:00 Condition: STABLE Instructions: Closed Head Injury (DC) Forms: [facility] (Latvian) Print Language: MALAY
--- NOTE | 2018-05-31 18:14 | CT ---
Date of service: 05/31/2018 PROCEDURE: CT HEAD WITHOUT CONTRAST. HISTORY: fell and hit back of head, on plavix COMPARISON: None available. TECHNIQUE: Axial computed tomography images were obtained through the head/brain without intravenous contrast. Supplemental Coronal and Sagittal projections created and reviewed. Radiation dose: Total exam DLP = 848.86 mGy-cm. This CT exam was performed using one or more of the following dose reduction techniques: Automated exposure control, adjustment of the mA and/or kV according to patient size, and/or use of iterative reconstruction technique. FINDINGS: HEMORRHAGE: No intracranial hemorrhage. BRAIN: No mass effect or edema. Mild, subtle microvascular ischemic changes. No appreciable cortical atrophy. VENTRICLES: Unremarkable. No hydrocephalus. CALVARIUM: Unremarkable. PARANASAL SINUSES: Chronic ethmoid and left frontal sinus disease, mild in degree. MASTOID AIR CELLS: Unremarkable as visualized. No inflammatory changes. OTHER FINDINGS: None. IMPRESSION: No acute intracranial abnormalities. No significant findings to account for the clinical presentation.
[2018-05-31 19:06] VITALS: BP 140/78; PULSE 78; RESP 18
[2018-05-31 19:18] VITALS: O2SAT 96
== END 2018-05-31 19:06 | disposition home or self-care (01) ==
LOC: H.ER 15:09
DX: S09.90XA Unspecified injury of head, initial encounter (principal); W19.XXXA Unspecified fall, initial encounter; Y92.89 Other specified places as the place of occurrence of the external cause; E11.9 Type 2 diabetes mellitus without complications; Z79.4 Long term (current) use of insulin; Z95.5 Presence of coronary angioplasty implant and graft